=== PATIENT | female | born 1950 | race Caucasian/White ===

== ENCOUNTER → 2018-04-18 14:24 | Outpatient (CLI) | payer MEDICARE, SELFPAY ==
[2018-04-18 16:36] LABS: Absolute Lymphocyte Count 1.71 X10^3/ul (0.83-4.51); Absolute Neutrophil Count 2.8 X10^3/uL (2.0-7.7); Basophil# 0.05 X10^3/uL; Eosinophil# 0.17 X10^3/uL; Eosinophils% 3.3 % (0-5); Hematocrit 38.5 % (37-47); Hemoglobin 12.8 g/dl (12.0-15.0); Lymphocyte # 1.71 X10^3/ul (4.0); Lymphocyte % 32.9 % (19-41); Mean Corp Hgb Conc 33.2 g/gl (32-36); Mean Corpuscular Hgb 30.6 pg (27.0-32.0); Mean Corpuscular Volume 92.1 fL (81-99); Mean Platelet Vol. 11.6 fl (6.2-12.0); Monocyte# 0.43 X10^3/uL; Monocyte% 8.3 % (0-10); Neutrophil # 2.82 X10^3/uL (2.7-7.7); Neutrophil % 54.3 % (47-70); Platelet Count 229 K/mm3 (150-450); RBC Distribution Width CV 13.6 % (11.6-14.6); Red Blood Count 4.18 M/mm3 (4.2-5.4); White Blood Count 5.2 K/mm3 (4.4-11.0)
[2018-04-18 16:54] LABS: POSITIVE COUNT NO; POSITIVE DIFFERENTIAL NO; POSITIVE MORPHOLOGY NO
[2018-04-18 17:06] LABS: AST(SGOT) 17 U/L (15-37); Alanine Aminotransfer ALT/SGPT 28 U/L (13-56); Albumin, Serum 3.5 g/dL (3.2-5.0); Alkaline Phosphatase 50 U/L (45-117); Anion Gap 5 (5-15); BUN 24 mg/dL (7-18); Calcium,Total 8.4 mg/dL (8.5-10.1); Chloride 109 mmol/L (98-107); Creatinine, Serum 0.83 mg/dL (0.55-1.02); EST Glomerular Filtration Rate 73 mL/min (>60); Est Glom Filt Rate - Afr Amer 88 mL/min (>60); Globulin 3.4 g/dL (2.2-4.2); Glucose 88 mg/dL (74-106); Potassium 4.1 mmol/L (3.5-5.1); Protein, Total 6.9 g/dL (6.4-8.2); Sodium Level 143 mmol/L (136-145)
== END ==
PROVIDERS: Family Provider Family Medicine; PCP Family Medicine; Visit Provider Internal Medicine Medical Oncology
DX: C50.911 Malignant neoplasm of unspecified site of right female breast (principal)
CPT/HCPCS: 36415; 80053; 85025

== ENCOUNTER → 2018-06-16 14:04 | Outpatient (CLI) | payer MEDICARE, SELFPAY ==
[2018-06-16 15:58] LABS: Thyroid Stim Hormone (TSH) 0.61 uIU/mL (0.358-3.74)
== END ==
PROVIDERS: Family Provider Family Medicine; PCP Family Medicine; Visit Provider Nurse Practitioner Family
DX: R53.83 Other fatigue (principal)
CPT/HCPCS: 36415; 84443

== ENCOUNTER → 2018-07-14 07:01 | Outpatient (CLI) | payer MEDICARE, OTHER, SELFPAY ==
[2018-07-14 08:42] LABS: AST(SGOT) 18 U/L (15-37); Alanine Aminotransfer ALT/SGPT 23 U/L (13-56); Albumin, Serum 3.6 g/dL (3.2-5.0); Alkaline Phosphatase 58 U/L (45-117); Bilirubin, Direct 0.13 mg/dL (0.00-0.30); Cholesterol 235 mg/dL (200); Globulin 3.7 g/dL (2.2-4.2); High Density Lipoprotein 81 mg/dL; Protein, Total 7.3 g/dL (6.4-8.2); Triglycerides 47 mg/dL; Very Low Density Lipoprotein 9 mg/dL (5-40)
--- NOTE | 2018-07-14 12:52 | CDU_ITS ---
Reason For Study: TIA Rt. Velocities/BP Lt. Velocities/BP Prox CCA 67.4/11.7 cm/sec. Prox CCA 52.6/18.5 cm/sec. Mid CCA 56.2/13.8 cm/sec. Mid CCA 53.8/13 cm/sec. Dist CCA 47.1/12.6 cm/sec. Dist CCA 49.1/11 cm/sec. Prox ICA 38.6/8.81 cm/sec. Prox ICA 57.8/20.4 cm/sec. Mid ICA 53/20 cm/sec. Mid ICA 101/34.1 cm/sec. Dist ICA 57/18.5 cm/sec. Dist ICA 79/22.9 cm/sec. Rt. ICA/CCA = 1.01. Lt. ICA/CCA = 1.92. Prox ECA 58.9/7.07 cm/sec. Prox ECA 49.1/9.04 cm/sec. Rt. Vert. 39.3/11.4 cm/sec. Lt. Vert. 29.2/9.47 cm/sec. Right Extracranial There is no significant atherosclerotic plaque noted in the right common carotid artery. There is no significant atherosclerotic plaque noted in the right internal carotid artery. There is no significant atherosclerotic plaque noted in the right external carotid artery. Antegrade flow is noted in the right vertebral artery. Left Extracranial There is no significant atherosclerotic plaque noted in the left common carotid artery. There is no significant atherosclerotic plaque noted in the left internal carotid artery. The left internal carotid artery is very tortuous. There is no significant atherosclerotic plaque noted in the left external carotid artery. Antegrade flow is noted in the left vertebral artery. Procedure Carotid Duplex 36595. Exam performed in department. Interpretation Summary No hemodynamically significant plague bilateral extracranial internal carotid arteries with <50% stenosis bilaterally. Tortuous left internal carotid Normal flow bilateral external carotids Patent and antegrade vertebrals bilaterally Ordering Physician: Mitch Diallo Referring Physician: Jakub Dial MD Performed By: Kari Casiano RVT and Student
== END ==
PROVIDERS: Family Provider Family Medicine; PCP Family Medicine; Referring Provider Internal Medicine Cardiovascular Disease; Visit Provider Internal Medicine Cardiovascular Disease
DX: G45.3 Amaurosis fugax (principal); R09.89 Other specified symptoms and signs involving the circulatory and respiratory systems; I49.9 Cardiac arrhythmia, unspecified; Z86.73 Personal history of transient ischemic attack (TIA), and cerebral infarction without residual deficits
CPT/HCPCS: 36415; 80061; 80076; 93225; 93226; 93880

== ENCOUNTER → 2018-07-15 14:52 | Outpatient (CLI) | payer MEDICARE, OTHER, SELFPAY ==
--- NOTE | 2018-07-15 14:54 | ECHOD_ITS ---
Reason For Study: Bicuspid AoV Procedure This was a 2D Doppler, Color Flow transthoracic echocardiogram. Exam performed in department. Left Ventricle Normal LV size. Left ventricular systolic function is normal. The estimated ejection fraction is 60 %. Stage 1 diastolic dysfunction. No regional wall motion abnormalities noted. Right Ventricle Normal RV size. Normal systolic function. Atria Normal left atrium. Normal right atrium. Bubble contrast study negative for right to left interatrial shunt. Mitral Valve Normal mitral valve. Mild (1+) eccentric mitral valve insufficiency. Tricuspid Valve Normal tricuspid valve. Mild (1+) tricuspid valve insufficiency. Pulmonary artery systolic pressure is 30 mmHg. Aortic Valve Trisinus/trileaflet aortic valve. Mild focal aortic valve calcification. Peak aortic valve gradient 54 mmHg. Mean aortic valve gradient 33 mmHg. Calculated aortic valve area (continuity equation) is 1.0 cm2. Moderate aortic stenosis. Mild (1+) eccentric aortic valve insufficiency. Pulmonic Valve Normal pulmonic valve. Great Vessels Normal aortic root. The pulmonary artery is normal size. Normal inferior vena cava. Inferior vena cava collapse with sniff. Pericardium/Pleural No pericardial effusion. Medication Performed a rapid injection of agitated mix of 9 cc saline and 1cc air to assess for atrial septal defect. MMode/2D Measurements & Calculations LVIDd: 4.6 cm IVSd: 1.2 cm LVOT diam: 2.2 cm LVIDs: 2.7 cm LVPWd: 1.0 cm LVOT area: 3.8 cm2 RVDd: 3.0 cm FS: 42.5 % Ao root diam: 3.9 cm LAV(MOD-bp): 46.7 ml LVAd ap4: 26.5 cm2 LAV(MOD-bp) Indexed: 26.2 ml/m2 EDV(MOD-sp4): 75.2 ml LAV(MOD-sp2): 40.9 ml EDV(sp4-el): 78.0 ml LAV(MOD-sp4): 43.9 ml LVAs ap4: 12.6 cm2 ESV(MOD-sp4): 21.4 ml ESV(sp4-el): 21.7 ml EF(MOD-sp4): 71.5 % EF(sp4-el): 72.2 % SV(MOD-sp4): 53.8 ml SV(sp4-el): 56.3 ml LA A4 area: 17.3 cm2 RA A4 area: 16.0 cm2 Doppler Measurements & Calculations MV E max juan ramon: 87.9 cm/sec Lat Peak E' Juan Ramon: 8.3 cm/sec Med Peak E' Juan Ramon: 7.6 cm/sec MV A max juan ramon: 97.1 cm/sec E/E' lat: 10.6 E/E' med: 11.5 MV E/A: 0.91 Ao V2 max: 368.9 cm/sec AI max juan ramon: 426.5 cm/sec LV V1 max: 96.0 cm/sec Ao max P.4 mmHg AI max P.8 mmHg LV V1 max P.7 mmHg Ao V2 mean: 277.7 cm/sec AI dec slope: 260.9 cm/sec2 LV V1 mean P.0 mmHg Ao mean P.2 mmHg AI P1/2t: 478.8 msec LV V1 mean: 66.8 cm/sec Ao V2 VTI: 91.6 cm LV V1 VTI: 22.7 cm SEGUNDO(I,D): 0.94 cm2 SEGUNDO(V,D): 0.98 cm2 SV(LVOT): 86.0 ml PA V2 max: 83.8 cm/sec TR max juan ramon: 262.8 cm/sec TR max P.7 mmHg Interpretation Summary Normal LV size. Left ventricular systolic function is normal. The estimated ejection fraction is 60 %. Stage 1 diastolic dysfunction. Bubble contrast study negative for right to left interatrial shunt. Mean aortic valve gradient 33 mmHg. Calculated aortic valve area (continuity equation) is 1.0 cm2. Moderate aortic stenosis. Compared to the previous the SEGUNDO is mildy worse Ordering Physician: Mitch Diallo Referring Physician: Jakub Dial Performed By: Desiree Gastelum, RDCS, RVT
== END ==
PROVIDERS: Family Provider Family Medicine; PCP Family Medicine; Referring Provider Internal Medicine Cardiovascular Disease; Visit Provider Internal Medicine Cardiovascular Disease
DX: G45.3 Amaurosis fugax (principal)
CPT/HCPCS: 93306; A4216

== ENCOUNTER → 2019-01-03 07:19 | Outpatient (CLI) | payer MEDICARE, SELFPAY ==
[2018-07-13 12:41] VITALS: BMI 25.7
[2019-01-03 08:14] LABS: AST(SGOT) 18 U/L (15-37); Alanine Aminotransfer ALT/SGPT 30 U/L (13-56); Albumin, Serum 3.7 g/dL (3.2-5.0); Alkaline Phosphatase 65 U/L (45-117); Bilirubin, Direct 0.17 mg/dL (0.00-0.30); Cholesterol 203 mg/dL (200); Globulin 3.4 g/dL (2.2-4.2); High Density Lipoprotein 85 mg/dL; Protein, Total 7.1 g/dL (6.4-8.2); Triglycerides 60 mg/dL; Very Low Density Lipoprotein 12 mg/dL (5-40)
[2019-01-03 08:20] LABS: Vitamin D,25 Hydroxy 58.4 ng/mL (29.95-100.01)
== END ==
PROVIDERS: Family Provider Family Medicine; PCP Family Medicine; Referring Provider Internal Medicine Cardiovascular Disease; Visit Provider Internal Medicine Cardiovascular Disease
DX: I35.0 Nonrheumatic aortic (valve) stenosis (principal); E78.5 Hyperlipidemia, unspecified
CPT/HCPCS: 36415; 80061; 80076; 82306

== ENCOUNTER → 2019-08-01 12:41 | Outpatient (CLI) | payer MEDICARE, SELFPAY ==
[2019-07-13 08:04] VITALS: BMI 24.6
--- NOTE | 2019-08-01 12:42 | ECHOD_ITS ---
Reason For Study: MURMUR Procedure This was a 2D Doppler, Color Flow transthoracic echocardiogram. Exam performed in department. Left Ventricle Normal LV size. Left ventricular systolic function is normal. The estimated ejection fraction is 60 %. Stage 1 diastolic dysfunction. No regional wall motion abnormalities noted. Right Ventricle Normal RV size. Normal systolic function. Atria Normal left atrium. 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 Acoustic shadowing noted in LA septal wall. Normal right atrium. Mitral Valve Normal mitral valve. Tricuspid Valve Normal tricuspid valve. Mild (1+) tricuspid valve insufficiency. Pulmonary artery systolic pressure is 34 mmHg. Aortic Valve Bicuspid aortic valve. Mild focal aortic valve calcification. Severe aortic stenosis. Peak aortic valve gradient 76 mmHg. Mean aortic valve gradient 48 mmHg. Calculated aortic valve area (continuity equation) is 0.84 cm2. Pulmonic Valve Normal pulmonic valve. Great Vessels Normal aortic root. The pulmonary artery is normal size. Normal inferior vena cava. Pericardium/Pleural No pericardial effusion. MMode/2D Measurements & Calculations LVIDd: 4.4 cm IVSd: 1.1 cm LVOT diam: 2.2 cm LVIDs: 2.4 cm LVPWd: 1.0 cm LVOT area: 3.8 cm2 RVDd: 3.0 cm FS: 44.9 % Ao root diam: 3.6 cm LAV(MOD-bp): 56.1 ml LA A4 area: 19.7 cm2 LAV(MOD-bp) Indexed: 32.1 ml/m2 LAV(MOD-sp2): 52.3 ml LAV(MOD-sp4): 56.1 ml LA dimension(2D): 4.1 cm RA A4 area: 15.7 cm2 Time Measurements MV dec time: 0.27 sec Doppler Measurements & Calculations MV E max juan ramon: 93.7 cm/sec Lat Peak E' Juan Ramon: 7.9 cm/sec Med Peak E' Juan Ramon: 6.4 cm/sec MV A max juan ramon: 109.2 cm/sec E/E' lat: 11.9 E/E' med: 14.7 MV E/A: 0.86 Ao V2 max: 436.1 cm/sec LV V1 max: 94.8 cm/sec SV(LVOT): 92.0 ml Ao max P.2 mmHg LV V1 max P.6 mmHg Ao V2 mean: 336.0 cm/sec LV V1 mean P.2 mmHg Ao mean P.5 mmHg LV V1 mean: 70.7 cm/sec Ao V2 VTI: 106.0 cm LV V1 VTI: 23.9 cm SEGUNDO(I,D): 0.87 cm2 SEGUNDO(V,D): 0.84 cm2 TR max juan ramon: 269.6 cm/sec TR max P.1 mmHg Interpretation Summary Normal LV size. Left ventricular systolic function is normal. The estimated ejection fraction is 60 %. Stage 1 diastolic dysfunction. Acoustic shadowing noted in LA septal wall. 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 Mean aortic valve gradient 48 mmHg. Bicuspid aortic valve. Calculated aortic valve area (continuity equation) is 0.84 cm2. Compared to the previous the is worse. Will recommend ANGY for further clarification of IA tea. Ordering Physician: Mitch Diallo Referring Physician: JIAN TAVARES Performed By: Alize Wu, ELISSA, RVT
== END ==
PROVIDERS: Family Provider Family Medicine; PCP Family Medicine; Referring Provider Internal Medicine Cardiovascular Disease; Visit Provider Internal Medicine Cardiovascular Disease
DX: I35.0 Nonrheumatic aortic (valve) stenosis (principal)
CPT/HCPCS: 93306

== ENCOUNTER → 2019-08-28 10:35 | Outpatient (CLI) | payer MEDICARE, SELFPAY ==
[2019-07-13 08:04] VITALS: BMI 24.6
[2019-08-25 08:10] LABS: AST(SGOT) 15 U/L (15-37); Alanine Aminotransfer ALT/SGPT 23 U/L (13-56); Albumin, Serum 3.4 g/dL (3.2-5.0); Alkaline Phosphatase 66 U/L (45-117); Anion Gap 6 (5-15); BUN 15 mg/dL (7-18); BUN/Creat Ratio 19.9 RATIO (10-20); Bilirubin, Direct 0.12 mg/dL (0.00-0.30); Chloride 105 mmol/L (98-107); Cholesterol 212 mg/dL (200); Creatinine, Serum 0.75 mg/dL (0.55-1.02); EST Glomerular Filtration Rate 81 mL/min (>60); Est Glom Filt Rate - Afr Amer 98 mL/min (>60); Globulin 3.7 g/dL (2.2-4.2); Glucose 89 mg/dL (74-106); High Density Lipoprotein 78 mg/dL; Potassium 4.2 mmol/L (3.5-5.1); Protein, Total 7.1 g/dL (6.4-8.2); Sodium Level 142 mmol/L (136-145); Triglycerides 86 mg/dL; Very Low Density Lipoprotein 17 mg/dL (5-40)
--- NOTE | 2019-08-28 10:36 | ECHOTEE_ITS ---
Reason For Study: R/O Left atrial mass Medication ANGY probe 6VT-D (SN [id number]) passed with minimal difficulty. No complications were noted. Cetacaine Topical [place] given X4 orally. Versed 2 mg given slow IVP. Performed a rapid injection of agitated mix of 9 cc saline and 1cc air to assess for atrial septal defect. Left Ventricle Normal LV size. Left ventricular systolic function is normal. The estimated ejection fraction is 65 %. No regional wall motion abnormalities noted. Right Ventricle Normal RV size. Normal systolic function. Atria Bubble contrast study negative for right to left interatrial shunt. Normal left atrium. No thrombus is detected in the left atrial appendage. Normal right atrium. Mitral Valve Normal mitral valve. Tricuspid Valve Normal tricuspid valve. Aortic Valve Normal aortic valve. Trisinus/trileaflet aortic valve. Pulmonic Valve Normal pulmonic valve. Vessels Normal aortic root. Normal arch. The pulmonary artery is normal size. Pericardium No pericardial effusion. Interpretation Summary Normal LV size. Left ventricular systolic function is normal. The estimated ejection fraction is 65 %. Normal left atrium. No thrombus is detected in the left atrial appendage. Bubble contrast study negative for right to left interatrial shunt. Ordering Physician: Mitch Diallo Referring Physician: Jakub Dial MD Performed By: Dottie Hull, ELISSA
== END ==
PROVIDERS: Family Provider Family Medicine; PCP Family Medicine; Referring Provider Internal Medicine Cardiovascular Disease; Visit Provider Internal Medicine Cardiovascular Disease
DX: I35.0 Nonrheumatic aortic (valve) stenosis (principal); G45.3 Amaurosis fugax; E78.5 Hyperlipidemia, unspecified; R53.83 Other fatigue; Z85.3 Personal history of malignant neoplasm of breast
CPT/HCPCS: 36415; 80048; 80061; 80076; 93312; 93320; 93325

== ENCOUNTER 2020-03-22 07:58 | Emergency (ER) | payer MEDICARE, SELFPAY ==
[2019-07-13 08:04] VITALS: BMI 24.6
[2020-03-22 07:59] VITALS: BP 150/71; PULSE 73; RESP 17; TEMP 36.2; O2SAT 95; BMI 26.1
--- NOTE | 2020-03-22 08:08 | ED.VIS.INJ ---
History of Present Illness Chief Complaint: Laceration Informant: Patient Onset: Today Mechanism/Context: Incised Quality of Pain: Aching Narrative: Patient is a 70-year-old female presenting from home after sustaining a laceration to her left leg. Patient was carrying a trash bag that had a broken hummingbird feeder and twigs in it. She cut her right leg and noticed because she had blood running down her leg. She did have a hard time getting the bleeding to stop so she came to the emergency room. She is not on any anticoagulation. She states her last tetanus was 40+ years ago but is refusing one now. She denies any other injuries. She states there is aching in her leg but denies any other pain. Patient closed the wound off at home prior to arrival. No other complaints at this time. Tetanus Immunization: >10 years Past Medical History - Allergies and Home Meds Allergies/Adverse Reactions: Allergies Penicillins Allergy (Unknown, Verified 03/22/20 07:58) Unknown adhesive tape Allergy (Verified 03/22/20 07:58) Unknown zinc Allergy (Verified 03/22/20 07:58) Vomiting Primary Care Physician: Jakub Dial MD [Primary Care Provider] - Past Medical History: - - breast cancer Surgical History: noncontributory Lives: Alone Smoking Status: Never smoker Review of Systems General: Denies: Chills, Fever, Sweats Cardiovascular: Denies: Chest pain, Palpitations Respiratory: Denies: Dyspnea, Cough Gastrointestinal: Denies: Nausea, Vomiting Musculoskeletal: Reports: Extremity Pain - left lower leg . Denies: Myalgias, Arthralgias Skin: Reports: Wounds - left lower leg Neurological: Denies: Weakness, Parasthesia, Numbness Physical Exam Vital Signs/Narrative: Vital Signs Temp Pulse Resp BP Pulse Ox 03/22/20 07:59 97.2 F L 73 17 150/71 H 95 Inital Vital Signs reviewed: Yes General: Well nourished, Well developed Head: Normocephalic, Atraumatic Eyes: Perrl, EOMI ENT: No trauma Neck: Nontender, Full ROM Cardiovascular: Regular rate, Regular rhythm, - - 2+ bilateral DP pulses, good cap refill Respiratory: No distress, CTA bilaterally, Chest nontender Skin: Normal color, No rash, Trauma - 4 centimeter full-thickness linear, tonsil laceration on left mid lateral calf, no active bleeding. Exposure of adipose tissue but no exposure of muscle or fascia. Neurological: Alert, Oriented x3, Cranial nerves II-XII grossly intact, Normal Strength, Normal Sensation Psychological: Normal affect Diagnostic/Tx/Re-eval - Medical Decision Making She is evaluated for laceration to her left lower leg. Laceration repair performed. See procedure note. Patient adamantly declines tetanus shot. She is encouraged that should she change her mind on tetanus she can follow-up with her primary care doctor or return to the emergency room. She is counseled localized wound care. Patient is counseled on signs symptoms require return to the emergency room. She verbalizes agreement understand this plan. She is discharged home in stable and improved condition. Laceration No standard instances Length: 1.57 in Depth: Sub Q Shape: Linear Prep: Sterile Conditions, Chlorhexadine Laceration Repair: Lidocaine with epi Irrigated (ml): 250 Stitch Description: Ethilon, 4-0 Comment: A horizontal mattress and 1 simple interrupted suture placed with very good wound edge approximation. ED Disposition - Plan for ED Patient: Disposition: Home or Assisted Living Diagnosis: Laceration of left lower leg Instructions: ED Laceration Scalp Sutures or Eduardo Referrals: Jakub Dial MD [Primary Care Provider] - Additional Instructions: Please follow-up with your primary care doctor or return the emergency room and 10 to 14 days for suture removal. If you change your mind and would like a tetanus shot please return to the ER or discuss this with your primary care doctor. Return with any signs of infection.
== END 2020-03-22 08:36 | disposition home or self-care (01) ==
LOC: ED 08:16
PROVIDERS: Emergency Provider Emergency Medicine; PCP Family Medicine
DX: S81.812A Laceration without foreign body, left lower leg, initial encounter (principal); W45.8XXA Other foreign body or object entering through skin, initial encounter; W22.8XXA Striking against or struck by other objects, initial encounter; Y93.E9 Activity, other interior property and clothing maintenance; Y92.9 Unspecified place or not applicable; Y99.9 Unspecified external cause status; Z88.0 Allergy status to penicillin; Z85.3 Personal history of malignant neoplasm of breast
CPT/HCPCS: 12002; 99284

== ENCOUNTER → 2020-09-10 07:13 | Outpatient (CLI) | payer MEDICARE, SELFPAY ==
[2020-08-27 07:33] VITALS: BMI 25.7
--- NOTE | 2020-09-10 08:39 | ECHOD_ITS ---
Reason For Study: MURMUR Procedure This was a 2D Doppler, Color Flow transthoracic echocardiogram. Exam performed in department. Left Ventricle Normal LV size. Left ventricular systolic function is normal. The estimated ejection fraction is 60 %. Stage 1 diastolic dysfunction. No regional wall motion abnormalities noted. Right Ventricle Normal RV size. Normal systolic function. Atria Normal left atrium. Normal right atrium. Mitral Valve Normal mitral valve. Mild (1+) eccentric mitral valve insufficiency. Tricuspid Valve Normal tricuspid valve. Mild (1+) tricuspid valve insufficiency. Pulmonary artery systolic pressure is 38 mmHg. Aortic Valve Trisinus/trileaflet aortic valve. Moderate focal aortic valve calcification. Peak aortic valve gradient 98 mmHg. Mean aortic valve gradient 61 mmHg. Severe aortic stenosis. Calculated aortic valve area (continuity equation) is 0.7 cm2. Pulmonic Valve Normal pulmonic valve. Great Vessels Normal aortic root. The pulmonary artery is normal size. Normal inferior vena cava. Pericardium/Pleural No pericardial effusion. MMode/2D Measurements & Calculations LVIDd: 4.3 cm IVSd: 1.1 cm LVOT diam: 2.0 cm LVIDs: 2.2 cm LVPWd: 1.1 cm LVOT area: 3.3 cm2 RVDd: 3.0 cm FS: 49.0 % Ao root diam: 3.7 cm LAV(MOD-bp): 53.9 ml LA A4 area: 18.1 cm2 LAV(MOD-bp) Indexed: 30.2 ml/m2 LAV(MOD-sp2): 54.4 ml LAV(MOD-sp4): 49.0 ml LA dimension(2D): 3.8 cm RA A4 area: 14.4 cm2 Time Measurements MV dec time: 0.31 sec Doppler Measurements & Calculations MV E max juan ramon: 91.8 cm/sec Lat Peak E' Juan Ramon: 6.8 cm/sec Med Peak E' Juan Ramon: 5.1 cm/sec MV A max juan ramon: 119.3 cm/sec E/E' lat: 13.5 E/E' med: 18.0 MV E/A: 0.77 Ao V2 max: 495.1 cm/sec LV V1 max: 105.7 cm/sec SV(LVOT): 89.1 ml Ao max P.1 mmHg LV V1 max P.5 mmHg Ao V2 mean: 372.6 cm/sec LV V1 mean P.8 mmHg Ao mean P.6 mmHg LV V1 mean: 81.2 cm/sec Ao V2 VTI: 124.6 cm LV V1 VTI: 27.1 cm SEGUNDO(I,D): 0.72 cm2 SEGUNDO(V,D): 0.70 cm2 PA V2 max: 103.4 cm/sec PI end-d juan ramon: 114.4 cm/sec TR max juan ramon: 291.3 cm/sec TR max P.1 mmHg Interpretation Summary Normal LV size. Left ventricular systolic function is normal. The estimated ejection fraction is 60 %. Mild (1+) eccentric mitral valve insufficiency. Stage 1 diastolic dysfunction. Severe aortic stenosis. Calculated aortic valve area (continuity equation) is 0.7 cm2. Compared to the previous the aortic valve is worse. Ordering Physician: Mitch Diallo Referring Physician: JIAN TAVARES Performed By: Alize Wu, ELISSA, RVT
[2020-09-10 09:34] LABS: AST(SGOT) 17 U/L (15-37); Alanine Aminotransfer ALT/SGPT 28 U/L (13-56); Albumin, Serum 3.8 g/dL (3.2-5.0); Alkaline Phosphatase 63 U/L (45-117); Bilirubin, Direct 0.15 mg/dL (0.00-0.30); Cholesterol 252 mg/dL (200); Globulin 3.6 g/dL (2.2-4.2); High Density Lipoprotein 100 mg/dL; Protein, Total 7.4 g/dL (6.4-8.2); Triglycerides 64 mg/dL; Very Low Density Lipoprotein 13 mg/dL (5-40)
== END ==
PROVIDERS: PCP Family Medicine; Referring Provider Internal Medicine Cardiovascular Disease; Visit Provider Internal Medicine Cardiovascular Disease
DX: I35.0 Nonrheumatic aortic (valve) stenosis (principal); G45.3 Amaurosis fugax
CPT/HCPCS: 36415; 80061; 80076; 93306

== ENCOUNTER → 2020-09-11 12:41 | Outpatient (CLI) | payer MEDICARE, SELFPAY ==
[2020-08-27 07:33] VITALS: BMI 25.7
--- NOTE | 2020-09-11 13:15 | RAD_ITS ---
STUDY: X-RAY CHEST REASON FOR EXAM: Female, 70 years old. PRE-OP FOR HEART CATH ON September. NONRHEUMATIC AORTIC VALVE STENOSIS. HX RIGHT SIDED MASTECTOMY 13 YEARS AGO. TECHNIQUE: PA and lateral views of the chest. COMPARISON: None. FINDINGS: The lungs are hyperinflated. There are a few right basilar streaky opacities. Normal size heart. Normal mediastinum and david. Normal visualized pulmonary arteries. Normal visualized aortic arch and descending thoracic aorta. There are diffuse degenerative changes of the visualized thoracic spine. There are surgical clips projecting over the right axilla. Normal visualized ribs, clavicles, and shoulders. There is no demonstrated abnormality of the visualized soft tissue structures of the upper abdomen. RAD/Chest PA and Lateral IMPRESSION: Hyperinflated lungs. Minimal right basilar atelectasis and/or scarring. Electronically Signed: Whit Hood MD at 22:40 EST Tel , Service support ,
[2020-09-11 13:35] LABS: Hematocrit 40.9 % (37-47); Hemoglobin 13.3 g/dL (12.0-15.0); Mean Corp Hgb Conc 32.5 g/dL (32-36); Mean Corpuscular Hgb 30.3 pg (27.0-32.0); Mean Corpuscular Volume 93.2 fL (81-99); Mean Platelet Vol. 11.6 fl (6.2-12.0); Platelet Count 221 K/mm3 (150-450); RBC Distribution Width SD 44.2 fl (35.1-43.9); Red Blood Count 4.39 M/mm3 (4.2-5.4); White Blood Count 5.3 K/mm3 (4.4-11.0)
[2020-09-11 13:45] LABS: International Normalized Ratio 0.9; Partial Thromboplast Time 24.5 Seconds (24.1-36.2); Prothrombin Time (Protime)PT. 11.6 SECONDS (11.7-14.9)
[2020-09-11 13:52] LABS: Anion Gap 3 (5-15); BUN 18 mg/dL (7-18); BUN/Creat Ratio 21.5 RATIO (10-20); Calcium,Total 9.1 mg/dL (8.5-10.1); Chloride 107 mmol/L (98-107); Creatinine, Serum 0.84 mg/dL (0.55-1.02); EST Glomerular Filtration Rate 71 mL/min (>60); Est Glom Filt Rate - Afr Amer 86 mL/min (>60); Glucose 113 mg/dL (74-106); Sodium Level 140 mmol/L (136-145)
== END ==
PROVIDERS: PCP Family Medicine; Referring Provider Internal Medicine Cardiovascular Disease; Visit Provider Internal Medicine Cardiovascular Disease
DX: Z01.818 Encounter for other preprocedural examination (principal); I35.0 Nonrheumatic aortic (valve) stenosis; Z51.81 Encounter for therapeutic drug level monitoring; Z79.02 Long term (current) use of antithrombotics/antiplatelets
CPT/HCPCS: 36415; 71046; 80048; 85027; 85610; 85730

== ENCOUNTER 2020-09-23 07:12 | Day surgery (SDC) | payer MEDICARE, SELFPAY ==
[2020-08-27 07:33] VITALS: BMI 25.7
[2020-09-20 08:54] VITALS: BMI 25.7
--- NOTE | 2020-09-23 07:04 | HP_ITS ---
[facility] History of Present Illness Details: YEN CHEEK, is a 70 F who presents to the office today for a follow-up visit. She is a lady with a history of a aortic valve disease last evaluated in 2018 demonstrated an ejection fraction of 65%. She does not have any dizziness or diaphoresis no near syncope or syncope. She has been compliant with her follow-up. She is on no medications. She denies any chest pain or shortness breath or paroxysmal nocturnal dyspnea pedal edema no neck arm or jaw discomfort to suggest angina. Her physical exam demonstrates clear lung kidd regular rate and rhythm bilateral carotid bruits, is soft 3/6 systolic ejection sound noted left sternal border. No pedal edema is noted and her blood pressure is noted to be normal. Intake Vital Signs 08/27/20 Height 5 ft 5 in 08/27/20 Weight: 155 lb 08/27/20 BMI 25.7 08/27/20 BP 129/76 H 08/27/20 Respiration 16 08/27/20 Pulse 60 08/27/20 Pulse Oximetry (%) 96 Intake Visit Reasons: 1 Y FU Allergies Penicillins Allergy (Unknown, Verified 08/27/20 07:33) Unknown adhesive tape Allergy (Verified 08/27/20 07:33) Unknown zinc Allergy (Verified 08/27/20 07:33) Vomiting Medications ascorbate calcium (vitamin C) 500 mg tablet 500 mg PO DAILY 08/27/20 [History Confirmed 08/27/20] cholecalciferol (vitamin D3) 25 mcg (1,000 unit) capsule 25 mcg PO DAILY 08/27/20 [History Confirmed 08/27/20] omega-3 fatty acids 1,000 mg capsule 1,000 mg PO DAILY 08/27/20 [History Confirmed 08/27/20] turmeric 400 mg capsule mg PO 08/27/20 [History Confirmed 08/27/20] Ejection fraction %: 60 to 64 [facility] Medical History Non-rheumatic aortic stenosis (Chronic) Amaurosis fugax (Resolved) History of right breast cancer (Chronic) Arthritis (Chronic) Central sleep apnea (Chronic) Left carotid bruit (Chronic) Macular degeneration (Chronic) Obstructive sleep apnea (Chronic) Hyperlipidemia (Resolved) Lymphedema of right arm (Resolved) Bicuspid aortic valve (Ruled-out) Surgical History H/O cataract extraction (Resolved) History of cataract surgery (Resolved) History of corneal transplant (Resolved) History of mastectomy (Resolved) History of nasal septoplasty (Resolved) Family History Mother Heart disease Social History (Updated 08/27/20 @ 10:[address] Mitch Diallo MD) Smoking Status: Never smoker ROS Const Const: Negative for fatigue, weakness, headache(s), frequent falls, difficulty sleeping or excessive sweating Eyes Eyes: Negative for loss of peripheral vision, transient loss of vision, blurry vision, double vision or tunnel vision ENT ENT: Negative for headache(s), dizziness, Nosebleed/epistaxis or balance problems Cardio Chest Pain: No Palpitations: No Edema: None Muscle aches with walking: None Resp Respiratory: Negative for SOB with activity, SOB at rest, SOB orthopnea\SOB lying down, Cough or paroxysmal nocturnal dyspnea GI GI: Negative nausea, vomiting, heartburn or black,tarry stools : Negative for hematuria Musc Musc: Negative for muscle aches/ myalgia, muscle weakness, joint pain or balance problems Skin Skin: Negative non-healing lesions, rash or unusual bruising Neuro Neuro: Negative for dizziness, lightheadedness, near syncope, syncope, orthostatic symptoms, frequent falls, headache(s), weakness, blurry vision, double vision or lack of coordination [place] Hematologic/Lymphatic: Positive for easy bleeding; negative for easy bruising Endo Endo: Negative for fatigue, excessive sweating or increased thirst/drinking Psych Psych: Negative for anxiety or depression Allergy Allergy/Immunology: Negative for hives, Negative for rash Cardiology Exam Const Appearance: cooperative, healthy appearing, no acute distress, well developed and well groomed Nutritional Appearance: average body habitus and well nourished Orientation: alert, awake and oriented x3 Head Head: normal to inspection, normocephalic and atraumatic Ears: hearing grossly normal bilaterally and external ears normal Nose: external nose normal, nares normal, nasal mucous membranes and turbinates normal, septum normal, no nasal discharge Face and Sinus: face symmetric Mouth: oral mucosae normal, tongue normal, oropharynx normal and moist mucous membranes Teeth and gingiva: dentition normal Throat: posterior oropharynx normal, tonsils normal and uvula midline Eyes General: appearance normal, both eyes and all related structures Eyelids: eyelids normal Conjunctivae: conjunctivae normal Pupils: PERRL, normal by confrontation and accommodation normal EOM: EOM intact bilaterally Neck Neck: normal visual inspection, trachea midline and no JVD JVD: +5 Carotids: normal carotid upstroke and bounding pulses Chest Chest inspection: normal inspection of the chest, symmetric chest movement and normal respiratory effort Auscultation: Bilateral: Clear to Auscultation Cardio Palpation: normal PMI Rate: regular rate Rhythm: regular rhythm Heart sounds: S1 normal, S2 normal and normal, physiologic split S2; negative rub, gallop or murmur Murmur: Grade 3/6, loud, harsh and early systolic GI GI: normal to inspection, soft, no hepatosplenomegaly and bowel sounds present Neuro General: alert, awake, oriented x3, gait normal, moves all extremities and no focal sensory deficit Skin Skin: no rashes or lesions noted Extremities Pulses: Normal: Right Femoral Pulse, Left Femoral Pulse, Right Dorsalis Pedis Pulse, Left Dorsalis Pedis Pulse, Right Posterior Tibial Pulse, Left Posterior Tibial Pulse, Right Radial Pulse, Left Radial Pulse Lower Extremity Edema: None: Bilateral Musculoskel Musculoskeletal: No joint tenderness Psych Psychological: normal affect Assessment & Plan Problems 1. Non-rheumatic aortic stenosis I35.0 Plan She does have evidence of nonrheumatic aortic stenosis. Her echo from last year demonstrated a peak mean gradient of 76 mmHg and 48 mmHg respectively. I would like us to repeat the above and depending on the findings further recommendations will be made. I have however primed her that we should consider possible aortic valve intervention. Thank you for allowing me to participate in the care of your patient. Please don't hesitate to call if any issues arise. Orders Orders: Echo Complete Today I35.0 Plan Detail Follow Up 6 Months (overhead foreman) Coding Level of Care Code Off vis,est,level 3 Diagnoses Non-rheumatic aortic stenosis I35.0 Coding Level of Care Code Off vis,est,level 3 Diagnoses Non-rheumatic aortic stenosis I35.0 Supplemental Info Supplemental Information Labs LDL Cholesterol 117 mg/dL (0-130) 08/28/19 HDL Cholesterol 78 mg/dL (40-) 08/28/19 Triglycerides 86 mg/dL (-199) 08/28/19 VLDL Cholesterol 17 mg/dL (5-40) 08/28/19 Diagnostics Echocardiogram 08/01/19 Transesophageal Echocardiogram 08/28/19
--- NOTE | 2020-09-23 09:26 | CL.D_ITS ---
Patient Name: YEN CHEEK Study Date: 09/23/2020 Performing: Mitch Diallo MD Ht: 64.96 inches 165 cm : 1950 Wt: 154.32 lbs 70 kg Age: 70 Gender: female BSA: 1.77 PROCEDURE(S) PERFORMED [id number] CLINICAL PROFILE AND INDICATIONS Indications: Valvular Disease Heart Failure: None Stress/Imaging Stress/Image Study Performed: No CAD Presentations: No Sxs, no angina. CONCLUSIONS Normal coronary arteries Aortic Valve Stenosis- Severe RECOMMENDATIONS TAVR DESCRIPTION OF PROCEDURE The patient arrived to the procedure lab. The risks and benefits of the procedure as well as a full d escription of our services here and current unavailability of surgical backup were fully explained to the patient and/or their significant other prior to the catheterization. The Timeout was completed, verifying the correct patient and procedure. The patient's procedural site was prepped and draped in the usual fashion. Local anesthetic was given subcutaneously to right radial region with Lidocaine 2% . Using a modified Seldinger technique, arterial access was obtained via the right radial artery, a 6 Fr sheath was inserted. Left Coronary Artery selective angiography was performed in multiple views u sing a 5 Fr. 4.0 Rulo catheter. Right Coronary Artery selective angiography was then performed in mu ltiple views using a 5 Fr. 4.0 Rulo catheter.The arterial sheath was pulled and a TR Band was applie d for hemostasis CORONARY ANGIOGRAPHY DOMINANCE: Right Dominant LEFT HEART ASSESSMENT Left Ventricular Ejection Fraction: by Echo 65 % Normal LV wall motion LEFT MAIN: Angiographically normal LEFT ANTERIOR DESCENDING ARTERY: Angiographically normal CIRCUMFLEX ARTERY: Angiographically normal RIGHT CORONARY ARTERY: Angiographically normal VALVE FINDINGS: Aortic Valve Calcification - severe Aortic Valve Stenosis - severe COMPLICATIONS No Complications PROCEDURE MEDICATIONS Versed 1 mg IV Versed 1 mg IV Oxygen: 2 L/min via nasal cannula Heparin diluted in 23cc Heparinized saline. Patient given 10cc IA of this solution. 09/23/2020 08:57: 58 Verapamil 2.5mg, Ntg 100mcgs, 2000 units of Heparin diluted in 23cc Heparinized saline. Patient give n 10cc IA of this solution. 09/23/2020 08:57:58 SUMMARY OF HEMODYNAMIC DATA Time AIR REST ECG 07:44:48 AO 106/59 (77) SA 09:00:52 Signed By Mitch Diallo MD On 09/23/2020 09:25:51 Mitch Diallo MD
== END 2020-09-23 11:10 | disposition home or self-care (01) ==
LOC: CLSP 07:13
PROVIDERS: PCP Family Medicine; Referring Provider Internal Medicine Cardiovascular Disease; Visit Provider Internal Medicine Cardiovascular Disease
DX: I35.0 Nonrheumatic aortic (valve) stenosis (principal); R93.1 Abnormal findings on diagnostic imaging of heart and coronary circulation; M19.90 Unspecified osteoarthritis, unspecified site; H35.30 Unspecified macular degeneration; R09.89 Other specified symptoms and signs involving the circulatory and respiratory systems; G47.31 Primary central sleep apnea; G47.33 Obstructive sleep apnea (adult) (pediatric); Z79.899 Other long term (current) drug therapy; Z85.3 Personal history of malignant neoplasm of breast
CPT/HCPCS: 93005; 93454; 99152; J7040; Q9967; C1769; C1894

== ENCOUNTER → 2020-10-01 06:32 | Outpatient (CLI) | payer MEDICARE, SELFPAY ==
[2020-09-20 08:54] VITALS: BMI 25.7
[2020-10-01 07:13] LABS: Absolute Lymphocyte Count 1.68 X10^3/uL (0.83-4.51); Absolute Neutrophil Count 3.3 X10^3/uL (2.0-7.7); Basophil# 0.06 X10^3/uL; Eosinophil# 0.25 X10^3/uL; Eosinophils% 4.3 % (0-5); Hematocrit 42.6 % (37-47); Hemoglobin 13.9 g/dL (12.0-15.0); Lymphocyte # 1.68 X10^3/ul (4.0); Lymphocyte % 29.2 % (19-41); Mean Corp Hgb Conc 32.6 g/dL (32-36); Mean Corpuscular Hgb 29.9 pg (27.0-32.0); Mean Corpuscular Volume 91.6 fL (81-99); Mean Platelet Vol. 11.2 fl (6.2-12.0); Monocyte# 0.44 X10^3/uL; Monocyte% 7.7 % (0-10); NRBC Flagged by Analyzer 0 % (0-5); Neutrophil % 57.5 % (47-70); Platelet Count 251 K/mm3 (150-450); RBC Distribution Width SD 43.7 fl (35.1-43.9); Red Blood Count 4.65 M/mm3 (4.2-5.4); White Blood Count 5.8 K/mm3 (4.4-11.0)
--- NOTE | 2020-10-01 07:18 | RAD_ITS ---
STUDY: X-RAY - ABDOMEN/PELVIS REASON FOR EXAM: Female, 70 years old patient with right upper quadrant abdominal pain. TECHNIQUE: AP supine and upright views of the abdomen and pelvis. COMPARISON: Chest radiograph dated 09/11/2020. FINDINGS: Normal visualized lung bases. There is an unremarkable bowel gas pattern. There is no demonstrated free abdominal air. There is no obvious organomegaly, mass or dilated bowel. No pathologic calcifications are visualized. Normal soft tissue structures. There is degenerative disc disease at L3-4. RAD/Abd Inc Decub and/or Erect IMPRESSION: No radiographic evidence of acute intra-abdominal disease. Electronically Signed: Annamarie Richards MD at 7:41 EST , Service support ,
[2020-10-01 07:34] LABS: ALB/GLOB Ratio 1.1 RATIO (0.9-2.4); AST(SGOT) 19 U/L (15-37); Alanine Aminotransfer ALT/SGPT 30 U/L (13-56); Albumin, Serum 3.7 g/dL (3.2-5.0); Alkaline Phosphatase 63 U/L (45-117); Anion Gap 5 (5-15); BUN 16 mg/dL (7-18); BUN/Creat Ratio 23.2 RATIO (10-20); CRP < 2.90 mg/L (0.0-3.0); Calcium,Total 9.1 mg/dL (8.5-10.1); Chloride 104 mmol/L (98-107); Creatinine, Serum 0.69 mg/dL (0.55-1.02); EST Glomerular Filtration Rate 89 mL/min (>60); Est Glom Filt Rate - Afr Amer 108 mL/min (>60); Globulin 3.5 g/dL (2.2-4.2); Glucose 104 mg/dL (74-106); Lipase 153 U/L (73-393); Potassium 4.2 mmol/L (3.5-5.1); Protein, Total 7.2 g/dL (6.4-8.2); Sodium Level 140 mmol/L (136-145)
== END ==
PROVIDERS: PCP Family Medicine; Referring Provider Family Medicine; Visit Provider Family Medicine
DX: R10.11 Right upper quadrant pain (principal)
CPT/HCPCS: 36415; 74019; 80053; 83690; 85025; 86140

== ENCOUNTER → 2020-10-03 09:07 | Outpatient (CLI) | payer MEDICARE, SELFPAY ==
[2020-09-20 08:54] VITALS: BMI 25.7
--- NOTE | 2020-10-03 09:14 | US_ITS ---
STUDY: ABDOMINAL ULTRASOUND - RIGHT UPPER QUADRANT REASON FOR VISIT: Female, 70 years old RUQ PAIN TECHNIQUE: Ultrasound evaluation of the right upper quadrant was performed with real-time and static villalobos-scale imaging. TECHNICAL QUALITY: Adequate. COMPARISON: None. FINDINGS: Liver: The liver measures 13.3 cm. There is normal echogenicity of the liver. The bile ducts are within normal limits. There is hepatic color flow. The direction of portal flow is hepatopetal. There is no demonstrated mass lesion. Gallbladder: Normal distended gallbladder. The gallbladder wall measures 1 mm. There is a negative sonographic Cagle''s sign. There is no pericholecystic fluid. There are no gallstones. Common Bile Duct (C.B.D.): The common bile duct measures 4 mm. Pancreas: Normal size of the head, body and tail of the pancreas. There is normal echogenicity of the pancreas. There is no demonstrated pancreatic mass or cyst. Right Kidney: Normal size of the right kidney. The right kidney measures 9.2 cm x 4.5 cm x 4.4 cm. Normal renal cortex. The right cortex measures 1.2 cm. There is no demonstrated renal mass or cyst. There is no right hydronephrosis. US/Abdomen Limited IMPRESSION: Normal right upper quadrant ultrasound examination. Electronically Signed: Young Mejia, at 11:00 EST , Service support ,
== END ==
PROVIDERS: PCP Family Medicine; Referring Provider Family Medicine; Visit Provider Family Medicine
DX: R10.11 Right upper quadrant pain (principal)
CPT/HCPCS: 76705

== ENCOUNTER → 2020-11-11 10:53 | Outpatient (CLI) | payer MEDICARE, SELFPAY ==
[2020-09-20 08:54] VITALS: BMI 25.7
--- NOTE | 2020-11-11 10:56 | ADUL_ITS ---
Reason For Study: SWELLING S/P TAVR Right Velocities Common Femoral Artery, mid = 108.1 cm./sec. RT INTERLOCKER MAINTAINER measures 1.16 X 1.11 CM in cross sectional. RT CVFis compressible with normal waveforms; measures 1.12 X 1.12 CM in cross sectional. NO EVIDENCE OF PSEUDOANEURYSM. Procedure Exam performed in department. Interpretation Summary 1.16 x 1.11 cm right common femoral artery with normal arterial flow noted. 1.12 x 1.12 cm diameter right common femoral vein which demonstrates patency and compressibility No pseudoaneurysm or AV fistula identified. Ordering Physician: Chucho Gastelum Referring Physician: Jakub Dial Performed By: Nadine Herman, REYMUNDOCS, RVT
== END ==
PROVIDERS: PCP Family Medicine; Referring Provider Nurse Practitioner Family; Visit Provider Nurse Practitioner Family
DX: S75.011A Minor laceration of femoral artery, right leg, initial encounter (principal); X58.XXXA Exposure to other specified factors, initial encounter; Y93.9 Activity, unspecified; Y92.9 Unspecified place or not applicable; Y99.9 Unspecified external cause status; R60.9 Edema, unspecified
CPT/HCPCS: 93926

== ENCOUNTER → 2020-11-12 08:23 | Outpatient (CLI) | payer MEDICARE, SELFPAY ==
[2020-09-20 08:54] VITALS: BMI 25.7
--- NOTE | 2020-11-12 08:30 | CR.ITP_ITS ---
Diagnosis - General Information Admitting Diagnosis: Heart Valve Replacement 10/30/2020 Personal Learning Style:: Audio/Visual, Written Barriers to Learning: Vision Impairment Stage of change r/t lifestyle modifications:: Action Gave educational material for:: Treating Heart Disease, Emotions & Heart Disease, Stress Management & Relaxation, Sleep Disorders & Heart Disease, How The Heart Works, What it means to have Heart Disease, How Coronary Artery Disease is Diagnosed, Heart Procedures, What Heart Medications Do, Risk Factors & Modifications, Living an Active Life, Nutrition - Education/Goals Individual Counseling: Initial Assessment: Abnormal Cholesterol Levels, High Blood Pressure Cardiac Rehabilitation Goals: 1. Maintain the individual as the primary focus of care. 2. To improve the patient's quality of life. 3. Identification of cardiac risk factors and provide cardiac risk factor management. 4. Enhance the psychosocial status of the patient. 5. Reconditioning enough to allow the patient to resume customary activities. 6. Control symptoms of cardiac disease Personal Goals: Initial Assessment: Improve management of stress and emotions, Improve energy level, Participate in home exercise program, Get back to work, or to resume activities faster, Improve muscle strength and endurance, Improve diet and eating habits (eat healthier), Control risk factors (learn risk factor modification) Scale for measuring improvement of personal goals: Enter appropriate number in Comments. 2 = Unchanged. 3 = Slightly Better. 4 = Moderate Improvement. 5 = Met my Goal - Diagnosis & Disease Process Outcomes/Goals: Pt IDs own risk factors & lifestyle modifications by Session 10, Verbalizes symptoms of angina & response by session 3., Pt independently manages Plan/Interventions: Assist Pt to ID & engage in lifestyle modification to reduce CVD risk, Instruct on individual risk factors, Review symptoms of angina & emergency actions, Review secondary diagnosis & identify educational needs. - Safety Referral to Physical Therapy: No Referral to [facility] Case Management: No Fall Risk Assessed:: Yes Assistive Devices:: None Exercise - Initial Assessment - Visit Date of Eval: 11/12/20 Session #:: 0 - Pre cardiac rehab evaluation Mets: Pre-: >5 METS for 30 minutes by discharge - Physician Prescribed Exercise Modalities: Treadmill, Airdyne, NuStep, SciFit Frequency: 3x/week for 12 weeks [36 sessions] Intensity: 60-80% of age predicted maximum heart rate reserve Current METSs:: 3.5 Target Heart Rate:: 98-127 Resting Blood Pressure: 128/76 EKG Type: Sinus Rhythm with 1st degree block - Outcomes & Goals Goals:: Verbalizes understanding of THR, RPE & goal METS by session 6, Documents in home exercise log/reports 30 min aerobic 5 day/wk by DC, Demonstrates accurate pulse taking by DC - Intervention & Plan Exercise Program Goals: Instruct on personal THR & RPE, Instruct on MET level & personal MET goal, Show patient to take own pulse /validate performance until accurate, Instruct on home exercise - Physical Activity Home Exercise Physical Activity - Home Exercise: Safe Exercise, Warm-up, Self-monitoring, Cool-Down, Home Exercise > 30 min Daily, Sitting Time <3 hours/daily - Outcomes & Goals Outcomes/Goals: Demonstrates correct Warm-up/exercise Cool-Down (S3) if = 2.5 METs, Verbalizes symptoms of exercise intolerance by Session 3 (S3), Demonstrate safe equipment use (S3) & follows exercise prescrition (6) - Intervention & Plan Plan/Intervention: Instruct warm-up & cool-down if exercising at > 2 METs, Instruct on symptoms of exercise intolerance & actions to take, Instruct & monitor on saf, Assess intial functional capacity & safety risk Nutrition - Initial Assessment - Program Goals Nutrition Program Goals: LDL <100 optimal. 100 - 129 Near optimal. 130 - 159 Borderline High. 160 - 189 High. Total Cholesterol <200 desirable. 200 - 239 Borderline High. >/= 240 High. HDL < 40 Low >/=60 High. Triglycerides <150 desirable. <199 optimal. VlDL 5 - 40. HgbA1C <7%. BMI <25 Patient has diagnosis of Hyperlipidemia (ICD E78)?: Yes - Visit Date of Assessment:: 11/12/20 Session #:: 0 - precardiac rehab evaluation - Cholesterol/Lipids Triglycerides (mg/dL): 86 - 08/28/2019 LDL Cholesterol (mg/dL): 117 HDL Cholesterol (mg/dL): 78 Determine presence & major risk factors that modify LDL goal: Hypertension or hypertensive medication, Age men > 45 years; women >/= 55 years Outcomes/Goals: Pt IDs own risk factors & lifestyle modifications by Session 10, Verbalizes symptoms of angina & response by session 3., Pt independently manages Intervention/Plan: Instruct on personal lipid levels & lipid goals/NCEP guidelines, Instruct on cholesterol Referral to dietitian:: No - Patient declined Nutritional Therapy - Diabetes (Other Core Measures) Diabetes Type: Not Applicable - Weight Mgt (Other Care) Not Applicable: Yes Height: 5 ft 5 in Weight:: 155 lb BMI: 25.7 Diagnosis Overweight/Obesity BMI> 30% ICD-10 E66: No Diagnosis High BMI/Morbid Obesity BMI> 35% ICD-10 Z68: No Outcomes/Goals: Pt sets, maintains & shows weight loss goal & trend during rehab Intervention/Plan: Instruct on ideal BMI & set weight loss goal w/patient - Healthy Eating Habits Will attend diet classes:: Yes Outcomes/Goals:: Consume diet rich in vegs,fruits,whole grain/high fiber,fish,lean meat, Limit sat/trans fats,cholesterol & added salts & sugars Intervention/Plan:: Assess current eating habits Medical - Initial Assessment - Visit Date of Eval: 11/12/20 Session #:: [facility] - Medication Compliance H/O mental health issues: depression, anxiety, or addiction?: No Doesn?t believe in the benefits of treatment?: No Believes medications are unnecessary or harmful?: No Has a concern about medication side effects?: No Expresses concern over the cost of medications?: No Outcomes/Goals: Verbalizes medications,desired effect & common side effects @ DC, Pt self-reports following medication regimen, Keeps card in wallet w/medications listed by DC Interventions/plans: Instruct on medication effects & side effects, Review medication list w/patient every two weeks, Instruct importance of taking meds as ordered & assist problem solving - Tobacco Use Tobacco Use: Non-smoker - Hypertension Hypertension Diagnosis:: Hypertension ICD-10 I10 Resting Blood Pressure:: 128/76 [place] [employer] Hypertension Guidelines: [place] [employer] Hypertension Guidelines. Normal BP Less than 120/80. Elevated BP 120/80. Hypertension Stage 1: BP 130-139/80-89. Hypertesnion Stage 2: BP 140 or higher/90 or higher. Hypertension Crisis: BP higher than 180/120 Outcomes/Goals: Able to verbalize/achieve optimal blood pressure <130/80, Incorporates diet changes & exercise for blood pressure control by DC Interventions/plan: Instruct on optimal blood pressure, hypertension & medications, Instruct on effects of sodium, alcohol, stress, exercise &hypertension - Tobacco Cessation Referral Smoking Cessation Referral:: No Individual Education/Counseling:: No Education Schedule Given:: Yes Psychosocial - Initial Assess - VIsit Date of Eval: 11/12/20 Session #:: 0 - pre-cardiac rehab evaluation Not Applicable: Yes History of previous Mental disease:: No - Target Goals Target Goals: Assess presence or absence of depression. Using a valid screening tool, maximizes coping skills. Positive support system - Psychosocial Test Tool Used:: Austin Moe QOL Cardiac, PHQ-9 Questionnaire phq-9 Severity: Severity. 1-4 Minimal Depression. 5-9 Mild Depression. 10-14 Moderate Depression. 15-19 Moderately Sever Depression. 20-27 Severe Depression. Rule: - Referral to Behavioral Health PS - Interventions: Yes Attend Stress Management Classes, No Referral to [facility] if PHQ-9 score >9:, No Referral to [facility], No Referral to Physician if PHQ-9 if score is 5-9: - Outcomes/Goals: See list Psychosocial Outcomes/Goals:: ID's personal stressors & 2 strategies to manage stress by discharge - Intervention/Plan: See List Interventions/Plan:: Assess stressors,coping strategies & signs of derpression on admission, Instruct/assist pt to develop coping & personal stress Mgt strategies, Instruct patient to recognize signs & symptoms of depression, Instruct patient to recog Patient Health Questionnaire Initial Assessment 1. Little interest or pleasure in doing things: Not at all 2. Feeling down, depressed, or hopeless: Not at all 4. Feeling tired or having little energy: Several days 5. Poor appetite or overeating: Not at all 6. Feeling bad about yourself -- or that you are a failure or have let yourself or your family down: Not at all 7. Trouble concentrating on things, such as reading the newspaper or watching television: Not at all 8. Moving or speaking so slowly that other people could have noticed. Or the opposite - being so fidgety or restless that you have been moving around a lot more than usual: Not at all 9. Thoughts that you would be better off , or of hurting yourself in some way: Not at all How difficult have these problems made it for you to do your work, take care of things at home, or get along with other people?: Not difficult at all Total Score: 1 AINSLEY-Q SV Test - Statements CAD is a disease of the arteries in the heart: False Examples of risk factors for heart disease: True Angina is chest pain or discomfort: True The benefits of resistance training include: True Eating more meat and dairy products: False Anti-platelet medications such as aspirin are important: True The only effective way to manage stress: False An exercise warm-up slowly increases heart rate: True Prepared, processed foods usually have high sodium: True Depression is common after a heart attack: True The statin medications lower cholesterol: True To control blood pressure, lower the amount of sodium: True If someone gets chest discomfort during walking: False Transfats are partially hydrogenated vegetable oils: True Sleep apnea that is not treated increases the risk: False To control cholesterol, one should become a vegetarian: False Someone knows if he/she is exercising at the right level: True Diabetes cannot be prevented with exercise & health eating: False Stress is a large risk for heart attack: True A diet that can help lower blood pressure is rich in: True - Total Score Total Correct Responses: 20 Self-Efficacy Initial Assessment We would like to know how confident you are in doing certain activities. Please select your confidence level for:: Select your confidence level for the following using the scale 1-10 where 1 is not at all confident and 10 is totally confident. Your score is the average of all 6 responses. Fatigue: How confident are you that you can keep the fatigue caused by your disease from interfering with the things you want to do? Select Number: 10 Physical Discomfort or Pain: How confident are you that you can keep the physical discomfort or pain of your disease from interfering with the things you want to do? Select Number: 10 Emotional Distress: How confident are you that you can keep the emotional distress caused by your disease from interfering with the things you want to do? Select Number: 10 Other Symptoms or Health Problems: How confident are you that you can keep other symptoms or health problems from interfering with the things you want to do? Select Number: 10 Different Tasks and Activities: How confident are you that you can do the different tasks and activities needed to manage your health condition so as to reduce your need to see a doctor? Select Number: 10 Medication: How confident are you that you can do things other than just taking medication to reduce how much your illness affects your everyday life? Select Number: 10 Total Score:: 10 Nutrition Survey - Nutrition Survey Instructions Scoring Instructions: Scoring is as follows: Yes = 1 points. No = 0 point. Patient score that is >/=12 is considered to be at potential nutritional risk and could benefit from a referral to a registered dietitian. - Nutrition Survey Initial Have you lost >10 lbs over the past 2 months without trying?: No Are you following a special diet at home for diabetes, low fat, or low salt?: No Are you interested in meeting with a dietitian for help understanding your diet? : No Do you eat less than 3 meals a day?: Yes Do you eat fatty meats (mack, sausage, ribs, etc), fried foods, desserts, large amounts of salad dressings, margarine, butter, or cheese most days?: No Do you have food allergies? [Enter types in comment field]: No Do you eat in restaurants more than 3 times a week?: No Do you season food with salt, seasoning salt, or garlic salt?: Yes Do you used canned, boxed, frozen meals, or soups, seasoning packets?: No Total Score:: 2
--- NOTE | 2020-11-12 08:31 | PCM.CR.HP2 ---
CR - History & Physical - General Arrival date:: 11/12/20 Arrival time:: 08:37 Date of Referral:: 11/08/20 Date of CR Evaluation:: 11/12/20 Referring Physician: Dr. Mitch Diallo Primary Diagnosis: Heart Valve Replacement - History of Present Cardiac Event Onset Date: Enter Onset Date of cardiac illnesses in Comment field below Heart valve replacement or repair:: Yes - 10/30/2020 Type of Symptoms:: None, found simply through testing. Interventions with present event:: Echocardiogram, etc. Were there any complications?: slight hematoma after surgery but is okay now. - Medications Home Medications: Ambulatory Orders Medication Instructions Recorded ascorbate calcium (vitamin C) 500 500 mg PO DAILY 08/27/20 mg tablet cholecalciferol (vitamin D3) 25 25 mcg PO DAILY 08/27/20 mcg (1,000 unit) capsule omega-3 fatty acids 1,000 mg 1,000 mg PO DAILY 08/27/20 capsule turmeric 400 mg capsule mg PO 08/27/20 clopidogrel 75 mg tablet 75 mg PO QDAY #90 tab 11/11/20 - Allergies Allergies/Adverse Reactions: Allergies Penicillins Allergy (Unknown, Verified 08/27/20 07:33) Unknown adhesive tape Allergy (Verified 08/27/20 07:33) Unknown zinc Allergy (Verified 08/27/20 07:33) Vomiting aspirin Adverse Reaction (Intermediate, Verified 09/25/20 14:14) Pt can take short time, but has severe nosebleeds - Sleep Disorder Evaluation Hx of Sleep Apnea: Yes Do you snore loudly (louder than talking or can be heard through closed doors)?: Yes - Central Sleep Disorder and Obstructive Sleep Apnea Do you often feel tired/ fatigued/ sleepy during daytime?: No Has anyone observed you stop breathing during sleep?: Yes History of Hypertension (for STOP score): Yes STOP Results: Positive Advanced Directives - Advanced Directives 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 Living Will: Yes Advance Directives Information Provided: No Advance Directives on File: Yes DNR Order?:: No - MOLST See MOLST form: No Past Medical History - Covid-19 Screening Fever: No Unexplained muscle aches: No Current respiratory symptoms: No Upper respiratory infections symptoms: No Gastro-intestinal symptoms: Yes - GERD Owy-Fodw-Ispwbj symptoms: No Has tested positive for COVID-19 in last 30 days: No Had contact w/person w/symptoms or Covid-19 (+) last 14 days: No Has High Risk Exposures ID'd by Health dept/Inf Control team: No 65 years or older:: Yes Lives in Assisted Living facility:: No Has a chronic lung disease or moderate to severe asthma:: No Has a serious heart condition:: Yes Immunocompromised:: Yes Severely obese (Body Mass Index of 40 or higher):: No Diabetic:: No Has chronic kidney disease undergoing dialysis:: No - Past Medical Illness Medical History: Past Medical History (Last Reviewed 08/27/20 @ 10:[address] Mitch Diallo MD) Non-rheumatic aortic stenosis (Chronic) I35.0 Amaurosis fugax (Resolved) G45.3 History of right breast cancer (Chronic) Z85.3 Arthritis M19.90 Central sleep apnea G47.31 Left carotid bruit R09.89 Macular degeneration H35.30 Obstructive sleep apnea G47.33 Hyperlipidemia E78.5 Lymphedema of right arm I89.0 Bicuspid aortic valve (Ruled-out) Q23.1 - Past Surgical History Surgical History: Past Surgical History (Last Updated 11/08/20 @ 14:48 by Didi Flowers) S/p TAVR (transcatheter aortic valve replacement), bioprosthetic (Chronic) Onset Date: 10/30/[address] Goldy Campos @ [facility] 10/30/2020 H/O cataract extraction Z98.49 History of cataract surgery Z98.49 History of corneal transplant Z94.7 History of left heart catheterization Z98.890 History of mastectomy Z90.10 History of nasal septoplasty Z98.890 Surgical History: noncontributory - Family History Summary Family History: Family History (Last Reviewed 08/27/20 @ 10:[address] 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 Recreational Activities: I am able to engage in all my recreational activities Social Environment - Status Marital Status: Single - Current Living Arrangements Living Environment:: Alone - Safety Do you feel safe in your surroundings?: Yes Review of Systems - Review of Systems Hints: Right click = Denies (Slash). Left click = Reports ([place]) Review of Present Symptoms: Reports: Wound Healing, Dizziness/Lightheadedness - did experience some this week and over the weekend., Appetite - Normal, Appetite - Special Diet. Denies: Shortness of Breath at Rest, Shortness of Breath with Exertion, Operative Discomfort, Fatigue, Sleep - Normal - having difficulty with sleep due to sleep apnea machine, causing bloating and stuffiness. - Pain Is Patient Pain Free?: Yes Pain Location: none Pain Level: 0/10 Risk Factor Assessment - Chief Complaint Chief Complaint: Patient is a [address] Diallo who presentst o cardiac rehab today following a recent heart valve replacement procedure on 10/30/2020. 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 - Vital Signs Temperature: 97.7 F Respiratory Rate: 16 Pulse Ox: 96 Blood Pressure: 128/76 - Pulse Pulse Rate: 60 Pulse Rhythm: Regular - Hypertension Blood Pressure Sitting - Left Arm: 128/76 - Blood Cholesterol/Lipids HDL Cholesterol (mg/dL) Goal = less than 40 mg/dL: 78 - 08/28/2019 LDL Cholesterol (mg/dL) Goal = less than 70 mg/dL: 117 Triglycerides (mg/dL) Goal = less than 150 mg/dL: 86 - Obesity Height: 5 ft 5 in Weight:: 155 lb Weight in Pounds: 155.0 lbs Weight Source: Standing Scale Body Mass Index (BMI): 25.7 Nutritional Referral for Obesity: No - Physical Inactivity Physical Inactivity: Reg Exercise 30 min/day, Physically demanding job - Risk Stratification Risk Guidelines: Lowest Risk: Risk Factor for Smoking, Risk Factor for Dyslipidemia, Risk Factor for Diabetes, Risk Factor for Obesity, Risk Factor for Hypertension, Risk Factor for Sedentary Lifestyle, Risk Factor for Depression - For Smoking Smoking Risk Guidelines: Smoking Low Risk: None or quit greater than 6 months ago. Smoking Moderate Risk: Smoker or quit 6 months or less ago. Smoking High Risk: Smoker - For Dyslipidemia Dyslipidemia Risk Guidelines: Low Risk: Moderate Risk: High Risk: 15-25% fat 25.1-29% fat >/= 30% fat. <7% sat fat 7-9% sat fat >9% sat fat. <150 mg chol 150-299 mg chol >/= 300 mg chol. LDL <100 LDL 100-129 LDL >/= 130. Chol/HDL ratio <5.0 Chol/HDL ratio 5.0-6.0 Chol/HDL ratio >6.0. Triglycerides <100 Triglycerides 100-149 Triglycerides >/= 150 - For Diabetes Mellitus Diabetes Risk Guidelines: Diabetes Low Risk: HgA1c <6.5% and/or FBG <120. Diabetes Moderate Risk: HgA1c 6.6-7.9% and/or FBG 120-180. Diabetes High Risk: HgA1c >/= 8% and/or FBG >180 - For Obesity/Overweight Obesity/Overweight Risk Guidelines: Obesity Low Risk: BMI <25.0. Obesity Moderate Risk: BMI 25-29.9. Obesity High Risk: BMI >/= 30.0 - For Hypertension Hypertension Risk Guidelines: Hypertension Low Risk: Systolic <120 and Diastolic <80. Hypertension Moderate Risk: Systolic 120-139 and Diastolic 80-89. Hypertension High Risk: Systolic >/= 140 and Diastolic >/= 90 - For Sedentary Lifestyle Sedentary Lifestyle Risk Guidelines: Sedentary Lifestyle Low Risk: >/= 1,500 kcal/week. Sedentary Lifestyle Moderate Risk: 700-1,499 kcal/week. Sedentary Lifestyle High Risk: < 700 kcal/week - For Depression Depression Risk Guidelines: Depression Low Risk: Not clinically depressed. Depression Moderate Risk: Mildly depressed. Depression High Risk: Clinically depressed - Family History Family History: Family History (Last Reviewed 08/27/20 @ 10:[address] Mitch Diallo MD) Mother Heart disease Motivation - Motivation to Participate On a scale of 1 to 10, how prepared are you to commit to attending program?: 10 What do you see as barriers to successfully being able to complete the program?: work schedules What do you see as the benefits of succesfully completing the program? In other words, what do you hope to get out of participating in the program?: better health more energy building muscle Are there issues you are dealing with that will interfere with completing the program?: none Do you have a spouse or signficant other, family or friends who will help support you to complete the program?: yes.
[2020-11-12 08:52] VITALS: BP 128/76; BMI 25.7
[2020-11-12 09:02] VITALS: BP 128/76; PULSE 60; RESP 16; TEMP 36.5; O2SAT 96; BMI 25.7
== END ==
PROVIDERS: PCP Family Medicine; Referring Provider Internal Medicine Cardiovascular Disease; Visit Provider Internal Medicine Cardiovascular Disease
DX: Z95.3 Presence of xenogenic heart valve (principal)

== ENCOUNTER 2020-12-13 15:15 | Outpatient (RCR) | payer MEDICARE, SELFPAY ==
[2020-11-12 08:52] VITALS: BMI 25.7
[2020-11-12 09:02] VITALS: BMI 25.7
== END 2020-12-15 23:59 ==
LOC: CR 15:15
PROVIDERS: PCP Family Medicine; Visit Provider Internal Medicine Cardiovascular Disease
DX: Z95.3 Presence of xenogenic heart valve (principal)
CPT/HCPCS: 93798

== ENCOUNTER → 2020-12-23 15:44 | Outpatient (CLI) | payer MEDICARE, SELFPAY ==
[2020-11-12 08:52] VITALS: BMI 25.7
[2020-11-12 09:02] VITALS: BMI 25.7
[2020-12-23 16:32] LABS: Hematocrit 41.5 % (37-47); Hemoglobin 13.4 g/dL (12.0-15.0); Mean Corp Hgb Conc 32.3 g/dL (32-36); Mean Corpuscular Hgb 29.7 pg (27.0-32.0); Mean Platelet Vol. 11.2 fl (6.2-12.0); Platelet Count 250 K/mm3 (150-450); RBC Distribution Width CV 13.3 % (11.6-14.6); Red Blood Count 4.51 M/mm3 (4.2-5.4); White Blood Count 5.5 K/mm3 (4.4-11.0)
== END ==
PROVIDERS: PCP Family Medicine; Visit Provider Internal Medicine Cardiovascular Disease
DX: R23.8 Other skin changes (principal)
CPT/HCPCS: 36415; 85027

== ENCOUNTER 2021-01-15 15:15 | Outpatient (RCR) | payer MEDICARE, SELFPAY ==
[2020-11-12 08:52] VITALS: BMI 25.7
[2020-11-12 09:02] VITALS: BMI 25.7
--- NOTE | 2021-01-10 06:26 | PCM.CR.ITP ---
Exercise - 60-day Assessment - Visit Date of Eval: 01/10/21 Session #:: 22 - Patient has only missed 2 sessions - Physician Prescribed Exercise Modalities: Treadmill, Rower, Airdyne, NuStep Frequency: 3x/week for 12 weeks [36 sessions] Intensity: 60-80% of age predicted maximum heart rate reserve Current METSs:: 6.0 increase from 5.0 Target Heart Rate:: 98-127 Current RPE:: 12-13 Maximum Excercise HR:: 127 one episode of ectopic atrial tachycardia rate 150 Resting Blood Pressure: 114/50 Maximum Exercise Blood Pressure: 170/82 EKG Type: NSR to sinus tach BBB rare PVC. Current Physical Activity or Exercising minutes: patient is very active - Outcomes & Goals Goals:: Verbalizes understanding of THR, RPE & goal METS by session 6, Documents in home exercise log/reports 30 min aerobic 5 day/wk by DC, Demonstrates accurate pulse taking by DC - Intervention & Plan Exercise Program Goals: Instruct on personal THR & RPE, Instruct on MET level & personal MET goal, Show patient to take own pulse /validate performance until accurate, Instruct on home exercise - 30-day Reassessments 30 day Reassessments:: Progressing - Physical Activity Home Exercise Physical Activity - Home Exercise: Safe Exercise, Warm-up, Self-monitoring, Cool-Down, Home Exercise > 30 min Daily, Sitting Time <3 hours/daily - Outcomes & Goals Outcomes/Goals: Demonstrates correct Warm-up/exercise Cool-Down (S3) if = 2.5 METs, Verbalizes symptoms of exercise intolerance by Session 3 (S3), Demonstrate safe equipment use (S3) & follows exercise prescrition (6) - Intervention & Plan Plan/Intervention: Instruct warm-up & cool-down if exercising at > 2 METs, Instruct on symptoms of exercise intolerance & actions to take, Instruct & monitor on saf, Assess intial functional capacity & safety risk - 30-day Reassessments 30 day Reassessments:: Progressing Nutrition - 60-Day Assessment - Program Goals Nutrition Program Goals: LDL <100 optimal. 100 - 129 Near optimal. 130 - 159 Borderline High. 160 - 189 High. Total Cholesterol <200 desirable. 200 - 239 Borderline High. >/= 240 High. HDL < 40 Low >/=60 High. Triglycerides <150 desirable. <199 optimal. VlDL 5 - 40. HgbA1C <7%. BMI <25 Patient has diagnosis of Hyperlipidemia (ICD E78)?: Yes - Visit Date of Assessment:: 01/10/21 Session #:: 22 - Cholesterol/Lipids Triglycerides (mg/dL): 64 - 09/10/2020 Total Cholesterol (mg/dL): 252 LDL Cholesterol (mg/dL): 139 HDL Cholesterol (mg/dL): 100 Determine presence & major risk factors that modify LDL goal: Hypertension or hypertensive medication, Age men > 45 years; women >/= 55 years Outcomes/Goals: Pt IDs own risk factors & lifestyle modifications by Session 10, Verbalizes symptoms of angina & response by session 3., Pt independently manages Intervention/Plan: Instruct on personal lipid levels & lipid goals/NCEP guidelines, Instruct on cholesterol Referral to dietitian:: Yes - Medical Nutrition Therapy 30-day Reassessments:: Progressing - Diabetes (Other Core Measures) Diabetes Type: Not Applicable - Weight Mgt (Other Care) Not Applicable: Yes Height: 5 ft 5 in Weight:: 159 lb BMI: 26.4 Diagnosis Overweight/Obesity BMI> 30% ICD-10 E66: No Diagnosis High BMI/Morbid Obesity BMI> 35% ICD-10 Z68: No Outcomes/Goals: Pt sets, maintains & shows weight loss goal & trend during rehab Intervention/Plan: Instruct on ideal BMI & set weight loss goal w/patient 30 day Reassessments:: Met - Healthy Eating Habits Will attend diet classes:: Yes Outcomes/Goals:: Consume diet rich in vegs,fruits,whole grain/high fiber,fish,lean meat, Limit sat/trans fats,cholesterol & added salts & sugars Intervention/Plan:: Assess current eating habits 30-day Reassessments:: Progressing Medical- 60-Day Assessment - Visit Date of Eval: 01/10/21 Session #:: 22 - Medication Compliance H/O mental health issues: depression, anxiety, or addiction?: No Doesn?t believe in the benefits of treatment?: No Believes medications are unnecessary or harmful?: Yes - Uses Vitamin C, Vitamin D, [place]-3, turmeric Has a concern about medication side effects?: Yes - Believes in natural remedies Expresses concern over the cost of medications?: No Outcomes/Goals: Verbalizes medications,desired effect & common side effects @ DC, Pt self-reports following medication regimen, Keeps card in wallet w/medications listed by DC Interventions/plans: Instruct on medication effects & side effects, Review medication list w/patient every two weeks, Instruct importance of taking meds as ordered & assist problem solving 30-day Reassessments:: Progressing - Tobacco Use Tobacco Use: Non-smoker - Hypertension Hypertension Diagnosis:: Hypertension ICD-10 I10 Resting Blood Pressure:: 114/50 [place] [employer] Hypertension Guidelines: [place] [employer] Hypertension Guidelines. Normal BP Less than 120/80. Elevated BP 120/80. Hypertension Stage 1: BP 130-139/80-89. Hypertesnion Stage 2: BP 140 or higher/90 or higher. Hypertension Crisis: BP higher than 180/120 Peak Exercise Blood Pressure:: 170/82 Outcomes/Goals: Able to verbalize/achieve optimal blood pressure <130/80, Incorporates diet changes & exercise for blood pressure control by DC Interventions/plan: Instruct on optimal blood pressure, hypertension & medications, Instruct on effects of sodium, alcohol, stress, exercise &hypertension 30 day Reassessments:: Progressing - Tobacco Cessation Referral Smoking Cessation Referral:: No Individual Education/Counseling:: No Education Schedule Given:: Yes Psychosocial - 60-Day Assess - VIsit Date of Eval: 01/10/21 Session #:: 22 Not Applicable: Yes History of previous Mental disease:: No - Target Goals Target Goals: Assess presence or absence of depression. Using a valid screening tool, maximizes coping skills. Positive support system - Psychosocial Test Tool Used:: PHQ-9 Questionnaire phq-9 Severity: Severity. 1-4 Minimal Depression. 5-9 Mild Depression. 10-14 Moderate Depression. 15-19 Moderately Sever Depression. 20-27 Severe Depression. Rule: - Referral to Behavioral Health PS - Interventions: Yes Attend Stress Management Classes, No Referral to Behavioral Health if PHQ-9 score >9:, No Referral to [facility], No Referral to Physician if PHQ-9 if score is 5-9: - Outcomes/Goals: See list Psychosocial Outcomes/Goals:: ID's personal stressors & 2 strategies to manage stress by discharge - Intervention/Plan: See List Interventions/Plan:: Assess stressors,coping strategies & signs of derpression on admission, Instruct/assist pt to develop coping & personal stress Mgt strategies, Instruct patient to recognize signs & symptoms of depression, Instruct patient to recog - 30-day Reassessments: 30 day Reassessments:: Met Patient Health Questionnaire 60-Day Re-eval Assessment 1. Little interest or pleasure in doing things: Not at all 2. Feeling down, depressed, or hopeless: Not at all 3. Trouble falling or staying asleep, or sleeping too much: Not at all 4. Feeling tired or having little energy: Not at all 5. Poor appetite or overeating: Not at all 6. Feeling bad about yourself -- or that you are a failure or have let yourself or your family down: Not at all 7. Trouble concentrating on things, such as reading the newspaper or watching television: Not at all 8. Moving or speaking so slowly that other people could have noticed. Or the opposite - being so fidgety or restless that you have been moving around a lot more than usual: Not at all 9. Thoughts that you would be better off , or of hurting yourself in some way: Not at all Total Score: 0 Self-Efficacy 60-Day Re-eval Assessment We would like to know how confident you are in doing certain activities. Please select your confidence level for:: Select your confidence level for the following using the scale 1-10 where 1 is not at all confident and 10 is totally confident. Your score is the average of all 6 responses. Fatigue: How confident are you that you can keep the fatigue caused by your disease from interfering with the things you want to do? Select Number: 10 Physical Discomfort or Pain: How confident are you that you can keep the physical discomfort or pain of your disease from interfering with the things you want to do? Select Number: 10 Emotional Distress: How confident are you that you can keep the emotional distress caused by your disease from interfering with the things you want to do? Select Number: 10 Other Symptoms or Health Problems: How confident are you that you can keep other symptoms or health problems from interfering with the things you want to do? Select Number: 10 Different Tasks and Activities: How confident are you that you can do the different tasks and activities needed to manage your health condition so as to reduce your need to see a doctor? Select Number: 10 Medication: How confident are you that you can do things other than just taking medication to reduce how much your illness affects your everyday life? Select Number: 10 Total Score:: 10
[2021-01-10 06:35] VITALS: BP 114/50; BP 170/82; BMI 26.4
== END 2021-01-15 23:59 ==
LOC: CR 15:15
PROVIDERS: PCP Family Medicine; Visit Provider Internal Medicine Cardiovascular Disease
DX: Z95.3 Presence of xenogenic heart valve (principal)
CPT/HCPCS: 93798

== ENCOUNTER 2021-02-10 15:15 | Outpatient (RCR) | payer MEDICARE, SELFPAY ==
[2020-11-12 09:02] VITALS: BMI 25.7
[2021-01-10 06:35] VITALS: BMI 26.4
[2021-01-16 00:20] VITALS: BP 114/50; BP 170/82
--- NOTE | 2021-02-10 07:11 | PCM.CR.ITP ---
Exercise - Final/Discharge - Visit Date of Eval: 02/10/21 Session #:: 35 - Physician Prescribed Exercise Modalities: Treadmill, Rower, Airdyne, NuStep, SciFit Frequency: 3x/week for 12 weeks [36 sessions] Intensity: 60-80% of age predicted maximum heart rate reserve Current METSs:: 7.0 increased from intial 3.5! Target Heart Rate:: 98-127 Current RPE:: 13 Maximum Excercise HR:: 139 Resting Blood Pressure: 142/60 Maximum Exercise Blood Pressure: 192/70 EKG Type: NSR to sinus tach w/occas. PVCs. - Outcomes & Goals Goals:: Verbalizes understanding of THR, RPE & goal METS by session 6, Documents in home exercise log/reports 30 min aerobic 5 day/wk by DC, Demonstrates accurate pulse taking by DC - Intervention & Plan Exercise Program Goals: Instruct on personal THR & RPE, Instruct on MET level & personal MET goal, Show patient to take own pulse /validate performance until accurate, Instruct on home exercise - 30-day Reassessments 30 day Reassessments:: Met - Physical Activity Home Exercise Physical Activity - Home Exercise: Safe Exercise, Warm-up, Self-monitoring, Cool-Down, Home Exercise > 30 min Daily, Sitting Time <3 hours/daily - Outcomes & Goals Outcomes/Goals: Demonstrates correct Warm-up/exercise Cool-Down (S3) if = 2.5 METs, Verbalizes symptoms of exercise intolerance by Session 3 (S3), Demonstrate safe equipment use (S3) & follows exercise prescrition (6) - Intervention & Plan Plan/Intervention: Instruct warm-up & cool-down if exercising at > 2 METs, Instruct on symptoms of exercise intolerance & actions to take, Instruct & monitor on saf, Assess intial functional capacity & safety risk - 30-day Reassessments 30 day Reassessments:: Met Nutrition - Final Assessment - Program Goals Nutrition Program Goals: LDL <100 optimal. 100 - 129 Near optimal. 130 - 159 Borderline High. 160 - 189 High. Total Cholesterol <200 desirable. 200 - 239 Borderline High. >/= 240 High. HDL < 40 Low >/=60 High. Triglycerides <150 desirable. <199 optimal. VlDL 5 - 40. HgbA1C <7%. BMI <25 Patient has diagnosis of Hyperlipidemia (ICD E78)?: Yes - Visit Date of Assessment:: 02/10/21 Session #:: 35 - no recent labs drawn - Cholesterol/Lipids Determine presence & major risk factors that modify LDL goal: Hypertension or hypertensive medication, Family history of premature CHD in Male < 55 years: female <65 yearsFa, Age men > 45 years; women >/= 55 years Outcomes/Goals: Pt IDs own risk factors & lifestyle modifications by Session 10, Verbalizes symptoms of angina & response by session 3., Pt independently manages Intervention/Plan: Instruct on personal lipid levels & lipid goals/NCEP guidelines, Instruct on cholesterol Referral to dietitian:: No 30-day Reassessments:: Progressing - Diabetes (Other Core Measures) Diabetes Type: Not Applicable - Weight Mgt (Other Care) Not Applicable: Yes Height: 5 ft 5 in Weight:: 157 lb - unchanged weight BMI: 26.1 Diagnosis Overweight/Obesity BMI> 30% ICD-10 E66: No Diagnosis High BMI/Morbid Obesity BMI> 35% ICD-10 Z68: No Outcomes/Goals: Pt sets, maintains & shows weight loss goal & trend during rehab Intervention/Plan: Instruct on ideal BMI & set weight loss goal w/patient 30 day Reassessments:: Met - Healthy Eating Habits Will attend diet classes:: Yes Outcomes/Goals:: Consume diet rich in vegs,fruits,whole grain/high fiber,fish,lean meat, Limit sat/trans fats,cholesterol & added salts & sugars Intervention/Plan:: Assess current eating habits 30-day Reassessments:: Met Medical - Final Assessment - Visit Date of Eval: 02/10/21 Session #:: 35 - Medication Compliance H/O mental health issues: depression, anxiety, or addiction?: No Doesn?t believe in the benefits of treatment?: No Believes medications are unnecessary or harmful?: Yes - Uses herbs mineral vitamins Has a concern about medication side effects?: Yes Expresses concern over the cost of medications?: No Outcomes/Goals: Verbalizes medications,desired effect & common side effects @ DC, Pt self-reports following medication regimen, Keeps card in wallet w/medications listed by DC Interventions/plans: Instruct on medication effects & side effects, Review medication list w/patient every two weeks, Instruct importance of taking meds as ordered & assist problem solving 30-day Reassessments:: Progressing - Tobacco Use Tobacco Use: Non-smoker - Hypertension Hypertension Diagnosis:: Hypertension ICD-10 I10 Resting Blood Pressure:: 142/60 [place] [employer] Hypertension Guidelines: [place] [employer] Hypertension Guidelines. Normal BP Less than 120/80. Elevated BP 120/80. Hypertension Stage 1: BP 130-139/80-89. Hypertesnion Stage 2: BP 140 or higher/90 or higher. Hypertension Crisis: BP higher than 180/120 Peak Exercise Blood Pressure:: 192/70 Outcomes/Goals: Able to verbalize/achieve optimal blood pressure <130/80, Incorporates diet changes & exercise for blood pressure control by DC Interventions/plan: Instruct on optimal blood pressure, hypertension & medications, Instruct on effects of sodium, alcohol, stress, exercise &hypertension 30 day Reassessments:: Met - Tobacco Cessation Referral Smoking Cessation Referral:: No Individual Education/Counseling:: No Education Schedule Given:: Yes Psychosocial - Final Assessmen - VIsit Date of Eval: 02/10/21 Session #:: 35 Not Applicable: Yes History of previous Mental disease:: No - Target Goals Target Goals: Assess presence or absence of depression. Using a valid screening tool, maximizes coping skills. Positive support system - Psychosocial Test Tool Used:: [employer] QOL Cardiac, PHQ-9 Questionnaire phq-9 Severity: Severity. 1-4 Minimal Depression. 5-9 Mild Depression. 10-14 Moderate Depression. 15-19 Moderately Sever Depression. 20-27 Severe Depression. Rule: - Referral to Behavioral Health PS - Interventions: Yes Attend Stress Management Classes, No Referral to Behavioral Health if PHQ-9 score >9:, No Referral to [facility], No Referral to Physician if PHQ-9 if score is 5-9: - Outcomes/Goals: See list Psychosocial Outcomes/Goals:: ID's personal stressors & 2 strategies to manage stress by discharge - Intervention/Plan: See List Interventions/Plan:: Assess stressors,coping strategies & signs of derpression on admission, Instruct/assist pt to develop coping & personal stress Mgt strategies, Instruct patient to recognize signs & symptoms of depression, Instruct patient to recog - 30-day Reassessments: 30 day Reassessments:: Met Patient Health Questionnaire Discharge Assessment 1. Little interest or pleasure in doing things: Not at all 2. Feeling down, depressed, or hopeless: Not at all 3. Trouble falling or staying asleep, or sleeping too much: Not at all 4. Feeling tired or having little energy: Not at all 5. Poor appetite or overeating: Not at all 6. Feeling bad about yourself -- or that you are a failure or have let yourself or your family down: Not at all 7. Trouble concentrating on things, such as reading the newspaper or watching television: Not at all 8. Moving or speaking so slowly that other people could have noticed. Or the opposite - being so fidgety or restless that you have been moving around a lot more than usual: Not at all 9. Thoughts that you would be better off , or of hurting yourself in some way: Not at all Total Score: 0 Self-Efficacy Discharge Assessment We would like to know how confident you are in doing certain activities. Please select your confidence level for:: Select your confidence level for the following using the scale 1-10 where 1 is not at all confident and 10 is totally confident. Your score is the average of all 6 responses. Fatigue: How confident are you that you can keep the fatigue caused by your disease from interfering with the things you want to do? Select Number: 10 Physical Discomfort or Pain: How confident are you that you can keep the physical discomfort or pain of your disease from interfering with the things you want to do? Select Number: 10 Emotional Distress: How confident are you that you can keep the emotional distress caused by your disease from interfering with the things you want to do? Select Number: 10 Other Symptoms or Health Problems: How confident are you that you can keep other symptoms or health problems from interfering with the things you want to do? Select Number: 10 Different Tasks and Activities: How confident are you that you can do the different tasks and activities needed to manage your health condition so as to reduce your need to see a doctor? Select Number: 10 Medication: How confident are you that you can do things other than just taking medication to reduce how much your illness affects your everyday life? Select Number: 10 Total Score:: 10 Nutrition Survey - Nutrition Survey Instructions Scoring Instructions: Scoring is as follows: Yes = 1 points. No = 0 point. Patient score that is >/=12 is considered to be at potential nutritional risk and could benefit from a referral to a registered dietitian. - Nutrition Survey Discharge Have you lost >10 lbs over the past 2 months without trying?: No Are you following a special diet at home for diabetes, low fat, or low salt?: No Are you interested in meeting with a dietitian for help understanding your diet?: No Do you eat less than 3 meals a day?: No Do you eat fatty meats (mack, sausage, ribs, etc), fried foods, desserts, large amounts of salad dressings, margarine, butter, or cheese most days?: No Do you have food allergies? [Enter types in comment field]: No Do you eat in restaurants more than 3 times a week?: No Do you season food with salt, seasoning salt, or garlic salt?: No Do you used canned, boxed, frozen meals, or soups, seasoning packets?: No Total Score:: 0
[2021-02-10 07:17] VITALS: BP 142/60; BP 192/70; BMI 26.1
== END 2021-02-14 23:59 ==
LOC: CR 15:15
PROVIDERS: PCP Family Medicine; Visit Provider Internal Medicine Cardiovascular Disease
DX: Z95.3 Presence of xenogenic heart valve (principal)
CPT/HCPCS: 93798

== ENCOUNTER → 2021-02-11 10:56 | Outpatient (CLI) | payer MEDICARE, SELFPAY ==
[2021-01-20 11:21] VITALS: BMI 26.2
[2021-02-10 07:17] VITALS: BMI 26.1
[2021-02-11 12:55] LABS: Hematocrit 42.2 % (37-47); Hemoglobin 13.5 g/dL (12.0-15.0)
[2021-02-11 13:18] LABS: Creatinine, Serum 0.65 mg/dL (0.55-1.02); EST Glomerular Filtration Rate 96 mL/min (>60); Est Glom Filt Rate - Afr Amer 116 mL/min (>60)
== END ==
PROVIDERS: PCP Family Medicine; Referring Provider Family Medicine; Visit Provider Family Medicine
DX: Z01.818 Encounter for other preprocedural examination (principal)
CPT/HCPCS: 36415; 82565; 85014; 85018

== ENCOUNTER → 2021-08-29 06:48 | Outpatient (CLI) | payer MEDICARE, SELFPAY ==
[2021-08-29 07:38] LABS: AST(SGOT) 21 U/L (15-37); Alanine Aminotransfer ALT/SGPT 29 U/L (13-56); Albumin, Serum 3.4 g/dL (3.2-5.0); Alkaline Phosphatase 54 U/L (45-117); Bilirubin, Direct 0.15 mg/dL (0.00-0.30); Cholesterol 233 mg/dL (200); Globulin 3.6 g/dL (2.2-4.2); High Density Lipoprotein 89 mg/dL; Triglycerides 39 mg/dL; Very Low Density Lipoprotein 8 mg/dL (5-40)
== END ==
PROVIDERS: PCP Family Medicine; Referring Provider Internal Medicine Cardiovascular Disease; Visit Provider Internal Medicine Cardiovascular Disease
DX: E78.5 Hyperlipidemia, unspecified (principal)
CPT/HCPCS: 36415; 80061; 80076

== ENCOUNTER 2022-01-29 16:02 | Outpatient (CLI) | payer MEDICARE, SELFPAY ==
[2022-01-29 17:01] LABS: BNP,B-Type NATRIURETIC PEPTIDE 11.7 pg/mL (0-100)
== END 2022-01-29 23:59 | disposition home or self-care (01) ==
LOC: LAB 16:03
PROVIDERS: PCP Family Medicine; Visit Provider Internal Medicine Cardiovascular Disease
DX: R06.02 Shortness of breath (principal)
CPT/HCPCS: 36415; 83880

== ENCOUNTER → 2022-05-12 | Outpatient (CLI) | payer MEDICARE, SELFPAY ==
--- NOTE | 2022-05-12 10:25 | RAD_ITS ---
EXAM: XR RIGHT FOOT COMPLETE, 3 OR MORE VIEWS CLINICAL INDICATION: ARTHRITIS TECHNIQUE: Frontal, lateral and oblique views of the right foot. This report was created using [employer] report generation technology. COMPARISON: None. FINDINGS: BONES/JOINTS: Unremarkable. No acute fracture. No subluxation. Normal alignment. Preservation of the joint space. No sclerotic or destructive changes observed. SOFT TISSUES: Unremarkable. No soft tissue swelling or gas. No radiopaque foreign body. OTHER FINDINGS: Images were obtained with weightbearing. RAD/Foot min 3 Views IMPRESSION: No acute findings in the right foot. Electronically Signed: Alejo Mclain MD at 2:58 EDT ,
[2022-05-12 12:30] LABS: Erythrocyte Sedimentation Rate 6 mm/hr (0-30)
[2022-05-12 13:49] LABS: CRP < 2.90 mg/L (0.0-3.0); Rheumatoid Factor < 10.0 IU/mL (<15); Uric Acid 3.1 mg/dL (2.6-6.0)
[2022-05-21 16:27] LABS: HLA B27 Negative (.)
== END | disposition home or self-care (01) ==
LOC: MTLAB 10:21
PROVIDERS: PCP Family Medicine; Referring Provider Podiatrist; Visit Provider Podiatrist
DX: M06.9 Rheumatoid arthritis, unspecified (principal)
CPT/HCPCS: 36415; 73630; 81374; 84550; 85652; 86038; 86140; 86431

== ENCOUNTER 2022-08-30 19:50 | Observation (INO) | payer MEDICARE, SELFPAY ==
[2022-08-30] VITALS (10 sets, daily range): BP systolic 130–178; BP diastolic 65–78; PULSE 60–78; RESP 14–18; TEMP 35.9–36.6; O2SAT 96–99; BMI 25.7
--- NOTE | 2022-08-30 20:01 | ED.RN ---
PT BROUGHT BACK FROM TRIAGE BY THIS RN, PLACED INTO GOWN, PROCESS PUMPER APPLIED. DR. OCHOA INFORMED OF PT NEURO SX AND SX RESOLUTION. REPORTS NO STROKE ALERT AT THIS TIME AND THAT PT WILL BE SEEN SHORTLY.
--- NOTE | 2022-08-30 20:10 | ED.RN ---
per pt this AM around 0915 she has trouble reading the [facility] at [facility] which is not normal for her.
--- NOTE | 2022-08-30 20:21 | CT_ITS ---
We are attempting to reach an attending provider to discuss findings. An addendum with communication details will be sent when the communication is complete. EXAM: CT HEAD WITHOUT INTRAVENOUS CONTRAST CLINICAL INDICATION: Neuro deficit, acute, stroke suspected TECHNIQUE: Multiple axial images were obtained of the head without intravenous contrast. This CT exam was performed using one or more of the following dose reduction techniques: automated exposure control, adjustment of the mA and/or kV according to patient size, and/or use of iterative reconstruction technique. This report was created using [employer] report [employer] technology. CONTRAST: IV 100mL Isovue-370 COMPARISON: None. FINDINGS: BRAIN AND EXTRA-AXIAL SPACES: Unremarkable. No intra- or extra-axial hemorrhage. No evidence of acute infarct. No intracranial mass or mass effect. There is preservation of the villalobos/white matter interface. Posterior fossa structures are unremarkable. Ventricles are appropriate for age. No hydrocephalus. Basal cisterns are patent. BONES/JOINTS: Unremarkable. No discrete lytic or blastic abnormalities. VASCULATURE: There are calcifications around the cavernous carotid arteries. This is consistent for atherosclerotic disease. SINUSES: There is sinus disease. MASTOID AIR CELLS: Unremarkable. Clear. ORBITS: Visualized globes, extraocular muscles, optic nerves and retrobulbar fat appear unremarkable. Aspects 10 CT/STROKE Brain/Head without Cont IMPRESSION: There is sinus disease. Electronically Signed: Odilon Holcomb MD at 20:54 EST ,
--- NOTE | 2022-08-30 20:21 | EKG12_ITS ---
Test Reason : NEURO Blood Pressure : / mmHG Vent. Rate : 058 BPM Atrial Rate : 058 BPM P-R Int : 236 ms QRS Dur : 118 ms QT Int : 432 ms P-R-T Axes : 051 -36 043 degrees QTc Int : 424 ms Sinus bradycardia with 1st degree A-V block Left axis deviation Incomplete right bundle branch block Minimal voltage criteria for LVH, may be normal variant ( [place] product ) Possible Anterior infarct , age undetermined Abnormal ECG Confirmed by ZAK CANTU, RADHA ([id number]), editor school photograph CURTIS COHEN ([id number]) on 09/01/2022 11:21:38 AM Referred By: Confirmed By:RADHA CRESPO MD
--- NOTE | 2022-08-30 20:22 | CT_ITS ---
We are attempting to reach an attending provider to discuss findings. An addendum with communication details will be sent when the communication is complete. EXAM: CT ANGIOGRAPHY HEAD AND NECK WITH INTRAVENOUS CONTRAST CLINICAL INDICATION: Neuro deficit, acute, stroke suspected TECHNIQUE: [place] [facility] [place]/head and neck CT angiography protocol performed with intravenous contrast. This CT exam was performed using one or more of the following dose reduction techniques: automated exposure control, adjustment of the mA and/or kV according to patient size, and/or use of iterative reconstruction technique. This report was created using [employer] report generation technology. MIP reconstructed images were created and reviewed. CONTRAST: IV 100mL Isovue-370 RADIATION DOSE: CTDIvol = 25.39 mGy, DLP = 655.07 mGy-cm COMPARISON: None. FINDINGS: HEAD: RIGHT ANTERIOR CEREBRAL ARTERY: Unremarkable. No significant stenosis at the visualized segments. Anterior communicating artery is present. No aneurysm. RIGHT MIDDLE CEREBRAL ARTERY: Unremarkable. No significant stenosis at the visualized segments. No aneurysm. RIGHT POSTERIOR CEREBRAL ARTERY: Unremarkable. No occlusion or significant stenosis. No aneurysm. RIGHT INTRACRANIAL INTERNAL CAROTID ARTERY: Unremarkable. No significant stenosis. No dissection or occlusion. RIGHT INTRACRANIAL VERTEBRAL ARTERY: Unremarkable. No significant stenosis. No dissection or occlusion. LEFT ANTERIOR CEREBRAL ARTERY: Unremarkable. No significant stenosis at the visualized segments. No aneurysm. LEFT MIDDLE CEREBRAL ARTERY: Unremarkable. No significant stenosis at the visualized segments. No aneurysm. LEFT POSTERIOR CEREBRAL ARTERY: Unremarkable. No occlusion or significant stenosis. No aneurysm. LEFT INTRACRANIAL INTERNAL CAROTID ARTERY: Unremarkable. No significant stenosis. No dissection or occlusion. LEFT INTRACRANIAL VERTEBRAL ARTERY: Unremarkable. No significant stenosis. No dissection or occlusion. BASILAR ARTERY: Unremarkable. No significant stenosis. No aneurysm. OTHER VASCULATURE: There is calcified plaque formation of the right cavernous carotid artery, with a mild stenosis (less than 50%). ALL ABOVE CRITERIA BY NASCET. There are no acute findings of the right and left internal carotid artery. ALL ABOVE CRITERIA BY NASCET. NECK: RIGHT COMMON CAROTID ARTERY: Unremarkable. No significant stenosis. No dissection or occlusion. RIGHT EXTRACRANIAL INTERNAL CAROTID ARTERY: Unremarkable. No significant stenosis. No dissection or occlusion. RIGHT EXTERNAL CAROTID ARTERY: Unremarkable. No occlusion. RIGHT EXTRACRANIAL VERTEBRAL ARTERY: Unremarkable. No significant stenosis. No dissection or occlusion. LEFT COMMON CAROTID ARTERY: Unremarkable. No significant stenosis. No dissection or occlusion. LEFT EXTRACRANIAL INTERNAL CAROTID ARTERY: Unremarkable. No significant stenosis. No dissection or occlusion. LEFT EXTERNAL CAROTID ARTERY: Unremarkable. No occlusion. LEFT EXTRACRANIAL VERTEBRAL ARTERY: Unremarkable. No significant stenosis. No dissection or occlusion. GREAT VESSELS OF AORTIC ARCH: There is calcified plaque formation of the left cavernous carotid artery, with a mild stenosis (less than 50%). ALL ABOVE CRITERIA BY NASCET. LUNG APICES: Unremarkable as visualized. HEAD and NECK: BONES/JOINTS: There are degenerative findings of the cervical spine. No discrete lytic or blastic abnormalities. SOFT TISSUES: Unremarkable. CAROTID STENOSIS REFERENCE USING NASCET CRITERIA: % ICA stenosis = (1 - narrowest ICA diameter/diameter of distal cervical ICA) x 100. Mild - <50% stenosis. Moderate - 50-69% stenosis. Severe - 70-94% stenosis. Near occlusion - 95-99% stenosis. Occluded - 100% stenosis. CT/STROKE CTA Head AND Neck W/Con IMPRESSION: 1. There is calcified plaque formation of the right cavernous carotid artery, with a mild stenosis (less than 50%). ALL ABOVE CRITERIA BY NASCET. 2. There is calcified plaque formation of the left cavernous carotid artery, with a mild stenosis (less than 50%). ALL ABOVE CRITERIA BY NASCET. 3. There are no acute findings of the right and left internal carotid artery. ALL ABOVE CRITERIA BY NASCET. Electronically Signed: Odilon Holcomb MD at 21:09 EST ,
--- NOTE | 2022-08-30 20:23 | ED.VIS.STROK ---
HPI History of Present Illness Chief Complaint: Neuro S/Sx Detail of Chief Complaint: Concern for stroke with speech difficulty Informant: patient Narrative Narrative: Patient presents the emergency department concerned that she may have had a TIA. Patient states that she was speaking on the phone with a friend when she could not find words to speak that she wanted to say. Symptoms lasted about 15 minutes. Patient subsequently afterwards developed a headache. Patient states that she does have history of migraines and can have some ocular aura and she feels like she is getting some aura currently. Her headache is currently minimal. Patient denies any focal weakness currently. She denies speech difficulty. Patient has prior history of TIA. Patient has had a prior aortic valve replacement via TAVR. Patient denies recent illness. Patient not on anticoagulation other than aspirin. 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/30/20) Hyperlipidemia Left carotid bruit Lymphedema of right arm Macular degeneration Non-rheumatic aortic stenosis Obstructive sleep apnea Right bundle branch block (RBBB) Home Medications ascorbate calcium (vitamin C) 500 mg tablet 500 mg PO DAILY 08/27/20 [History Last Taken Unknown] omega-3 fatty acids 1,000 mg capsule 1,000 mg PO DAILY 08/27/20 [History Last Taken Unknown] turmeric 400 mg capsule mg PO 08/27/20 [History Last Taken Unknown] Breast prostesis (right) #1 ea 05/06/21 [Rx Last Taken Unknown] Mastectomy Bra #2 ea 05/06/21 [Rx Last Taken Unknown] aspirin 81 mg tablet,delayed release (Adult Low Dose Aspirin) 81 mg PO .EVERY 4TH DAY 01/29/22 [History Last Taken Unknown] cholecalciferol (vitamin D3) 25 mcg (1,000 unit) capsule 50 mcg PO DAILY 01/29/22 [History Last Taken Unknown] vitamin B complex 1 tab PO DAILY 01/29/22 [History Last Taken Unknown] Allergy/AdvReac Type Severity Reaction Status Date / Time Penicillins Allergy Unknown Unknown Verified 08/30/22 19:54 adhesive tape Allergy Unknown Verified 08/30/22 19:54 zinc Allergy Vomiting Verified 08/30/22 19:54 clopidogrel [From Plavix] AdvReac Intermediate Bruising, Verified 08/30/22 19:54 myalgias, joint pain Family History Mother Heart disease Surgical History H/O cataract extraction History of cataract surgery History of corneal transplant History of left heart catheterization History of mastectomy History of nasal septoplasty Social History Smoking Status: Never smoker ROS ROS ED Review of Systems ROS Unobtainable: other Constitutional Constitutional ED: Reports lethargy; Denies chills, fever(s), sweats or weight loss Eyes Eyes: Denies blurry vision, change in vision or diplopia ENT ENT ED: Denies rhinorrhea or sore throat Cardiovascular Cardiovascular: Denies chest pain, orthopnea or racing heartbeat Respiratory/Chest Respiratory/Chest: Denies cough, dyspnea, dyspnea on exertion, orthopnea or sputum Gastrointestinal Gastrointestinal: Denies abdominal pain, diarrhea, nausea or vomiting Genitourinary Genitourinary ED: Denies dysuria, hematuria or urinary frequency Musculoskeletal Musculoskeletal: Denies arthralgias, back pain, myalgias or neck pain Integumentary Denies abscess, Abrasions or rash Neurologic Neurologic: Reports headache(s) and other Details: Expressive aphasia ; Denies weakness Psychiatric Psychiatric: Denies anxiety, depression or suicidal thoughts Endocrine Endocrinology: Denies polydipsia, polyphagia or polyuria Hematologic/Lymphatic Hematologic/Lymphatic: Denies easy bleeding, easy bruising or lymphadenopathy Allergic/Immunologic Allergic/Immunologic ED: Denies mouth swelling, tongue swelling or urticaria EXAM Physical Exam Const Vital Signs: 08/30/22 19:51 08/30/22 20:21 08/30/22 20:29 Temperature 97.8 F Temperature Source Temporal Pulse Rate 63 69 Respiratory Rate 16 15 Blood Pressure 178/78 H 161/76 H Blood Pressure Mean 111 104 Pulse Ox 99 98 97 Oxygen Delivery Method Room Air Room Air Room Air 08/30/22 20:51 Temperature 96.6 F L Temperature Source Temporal Pulse Rate 64 Respiratory Rate 18 Blood Pressure 159/68 H Blood Pressure Mean 98 Pulse Ox 97 Oxygen Delivery Method Room Air Positive well nourished and well developed General Appearance ED: well developed and NAD HEENT Reports TM's clear and moist mucous membranes normocephalic and atraumatic; Negative for trauma or tenderness Tympanic Membrane ED: Yes TM's clear Eyes PERRL and EOMs intact bilaterally General Eye ED: Negative for pale conjunctiva or scleral icterus Neck no lymphadenopathy, supple and no JVD General: Negative for tenderness Chest Wall inspection of chest normal and palpation of chest normal Chest: Negative for tenderness Resp normal respiratory effort and clear to auscultation bilaterally Effort and Inspection: Negative for respiratory distress or pain with movement Auscultation: Negative for rhonchi, wheezes or diminished lung sounds Cardio regular rate, regular rhythm, S1 normal heart sound, S2 normal heart sound and no murmurs Peripheral Pulses: pulses 2+ throughout GI normal to inspection, nondistended, normoactive bowel sounds, soft to palpation, non-tender, non-distended and no masses Back/Spine no CVA tenderness and no thoracic nor lumbar tenderness Extremity normal to inspection General Extremety ED: Negative for edema General Extremity: Negative for edema Neuro oriented x3, CN's II-XII intact bilaterally, no sensory deficits noted and gait normal Neuro Narrative: NIH stroke scale is 0. Finger-nose and heel ocasio testing within normal limits, negative Romberg, negative pronator drift, fundi benign Sensorium / Orientation: awake, alert, oriented to person, oriented to place and oriented to time Motor Exam: strength 5/5 throughout and strength abnormal Psych mental status grossly normal Skin no rashes or lesions noted and no wounds MDM MDM MDM Narrative Medical decision making narrative: IV line established on arrival. CT scan of the brain without contrast was unremarkable and CTA head and neck was negative for large vessel occlusion. Lab work-up unremarkable. Troponin was normal. Case discussed with hospitalist will evaluate patient for admission for TIA. In the differential would be a complex migraine. Lab Data Attestation: I reviewed the patient's lab results. Labs: Laboratory Results - last 24 hr 08/30/22 08/30/22 08/30/22 20:08 20:12 20:12 WBC 5.4 RBC 4.36 Hgb 13.0 Hct 40.2 MCV 92.2 MCH 29.8 MCHC 32.3 RDW Std Deviation 45.0 H RDW Coeff of Junior 13.3 Plt Count 243 MPV 10.8 Immature Gran % (Auto) 0.200 Neut % (Auto) 54.8 Lymph % (Auto) 32.4 [place] % (Auto) 8.3 Eos % (Auto) 3.7 Baso % (Auto) 0.6 Absolute Neuts (auto) 3.0 Absolute Lymphs (auto) 1.75 Nucleated RBC % 0 PT 12.5 INR 1.0 APTT 25.5 Sodium Potassium Chloride Carbon Dioxide Anion Gap BUN Creatinine Estim Creat Clear Calc Est GFR (MDRD) Af Amer Est GFR (MDRD) Non-Af BUN/Creatinine Ratio Glucose Calcium Magnesium Troponin I High Sens POC Glucose 97 08/30/22 08/30/22 20:12 20:12 WBC RBC Hgb Hct MCV MCH MCHC RDW Std Deviation RDW Coeff of Junior Plt Count MPV Immature Gran % (Auto) Neut % (Auto) Lymph % (Auto) [place] % (Auto) Eos % (Auto) Baso % (Auto) Absolute Neuts (auto) Absolute Lymphs (auto) Nucleated RBC % PT INR APTT Sodium 142 Potassium 4.2 Chloride 107 Carbon Dioxide 30.0 Anion Gap 5 BUN 17 Creatinine 0.62 Estim Creat Clear Calc 45.76 Est GFR (MDRD) Af Amer 120 Est GFR (MDRD) Non-Af 100 BUN/Creatinine Ratio 27.2 H Glucose 104 Calcium 8.8 Magnesium 2.3 Troponin I High Sens 7 POC Glucose Radiography Diagnostic Testing: Clinical Impression(s) from Imaging Studies Brain CT 08/30/22 20:21 IMPRESSION: There is sinus disease. Electronically Signed: Odilon Holcomb MD at 20:54 EST , ADDENDUM: 08/30/222102 IMPRESSION: There is sinus disease. N.B. : The above Results were Read Back by Odilon Holcomb MD to MD tasia, and understanding confirmed on 08/30/2022 20:56:57 (ET). Electronically Signed: Odilon Holcomb MD at 20:54 EST , Head/Neck CTA 08/30/22 20:22 IMPRESSION: 1. There is calcified plaque formation of the right cavernous carotid artery, with a mild stenosis (less than 50%). ALL ABOVE CRITERIA BY NASCET. 2. There is calcified plaque formation of the left cavernous carotid artery, with a mild stenosis (less than 50%). ALL ABOVE CRITERIA BY NASCET. 3. There are no acute findings of the right and left internal carotid artery. ALL ABOVE CRITERIA BY NASCET. Electronically Signed: Odilon Holcomb MD at 21:09 EST , ADDENDUM: 08/30/227 IMPRESSION: 1. There is calcified plaque formation of the right cavernous carotid artery, with a mild stenosis (less than 50%). ALL ABOVE CRITERIA BY NASCET. 2. There is calcified plaque formation of the left cavernous carotid artery, with a mild stenosis (less than 50%). ALL ABOVE CRITERIA BY NASCET. 3. There are no acute findings of the right and left internal carotid artery. ALL ABOVE CRITERIA BY NASCET. N.B. : The above Results were Read Back by Odilon Holcomb MD to Molly Bone MD, and understanding confirmed on 08/30/2022 21:10:59 (ET). Electronically Signed: Odilon Holcomb MD at 21:09 EST , Chest X-Ray 08/30/22 20:48 IMPRESSION: There are no acute findings. N.B. : The above Results were Read Back by Odilon Holcomb MD to Molly Bone MD, and understanding confirmed on 08/30/2022 21:09:07 (ET). Electronically Signed: Odilon Holcomb MD at 21:10 EST , ADDENDUM: 08/30/222116 IMPRESSION: There are no acute findings. N.B. : The above Results were Read Back by Odilon Holcomb MD to Molly Bone MD, and understanding confirmed on 08/30/2022 21:09:07 (ET). Electronically Signed: Odilon Holcomb MD at 21:10 EST Reading Location ID and State: [facility] / [place] , Service support , 1 view chest x-ray obtained interpreted by myself no acute disease process. Radiology in agreement. EKG Initial EKG: Attestation: I personally reviewed and interpreted this EKG as follows: Comments: Sinus rhythm with a ventricular rate of 58 bpm with incomplete right bundle branch block Discharge Plan Dx/Rx/DC Orders Clinical Impression: Brain TIA, Hx of hyperlipidemia, History of aortic valve replacement Disposition Disposition: Acute Care Hospital [facility]
[2022-08-30] MEDS: 0.9% Normal Saline 1,000 ML 100 ML IV ×2 (20:28→23:00)
[2022-08-30 20:30] LABS: Bedside Glucose 97 mg/dL (74-106)
[2022-08-30 20:35] LABS: Absolute Lymphocyte Count 1.75 X10^3/uL (0.83-4.51); Basophil# 0.03 X10^3/uL; Basophil% 0.6 % (0-1); Eosinophils% 3.7 % (0-5); Hematocrit 40.2 % (37-47); Lymphocyte # 1.75 X10^3/ul (0.83-4.51); Lymphocyte % 32.4 % (19-41); Mean Corp Hgb Conc 32.3 g/dL (32-36); Mean Corpuscular Hgb 29.8 pg (27.0-32.0); Mean Corpuscular Volume 92.2 fL (81-99); Mean Platelet Vol. 10.8 fl (6.2-12.0); Monocyte# 0.45 X10^3/uL; Monocyte% 8.3 % (0-10); NRBC Flagged by Analyzer 0 % (0-5); Neutrophil # 2.96 X10^3/uL (2.7-7.7); Neutrophil % 54.8 % (47-70); Platelet Count 243 K/mm3 (150-450); RBC Distribution Width CV 13.3 % (11.6-14.6); Red Blood Count 4.36 M/mm3 (4.2-5.4); White Blood Count 5.4 K/mm3 (4.4-11.0)
[2022-08-30 20:44] LABS: Partial Thromboplast Time 25.5 Seconds (24.1-36.2); Prothrombin Time (Protime)PT. 12.5 SECONDS (11.7-14.9)
--- NOTE | 2022-08-30 20:48 | RAD_ITS ---
STUDY: X-RAY CHEST REASON FOR EXAM: Female, 72 years old. Neuro deficit, acute, stroke suspected TECHNIQUE: XR Chest 1 View COMPARISON: 09.11.20 FINDINGS: There is atherosclerotic calcification of the aortic arch with tortuosity. There are diffuse degenerative changes of the visualized thoracic spine. There is degenerative osteoarthritis of the bilateral shoulders. There are multiple metallic clips in the right axilla. This is consistent for a prior axillary dissection. There are mastectomy changes noted. Normal size heart. Normal mediastinum and david. Normal visualized pulmonary arteries. There is no demonstrated abnormality of the visualized soft tissue structures of the upper abdomen. RAD/Chest 1 View IMPRESSION: There are no acute findings. N.B. : The above Results were Read Back by Odilon Holcomb MD to Molly Bone MD, and understanding confirmed on 08/30/2022 21:09:07 (ET). Electronically Signed: Odilon Holcomb MD at 21:10 EST ,
[2022-08-30 20:57] LABS: Anion Gap 5 (5-15); BUN 17 mg/dL (7-18); BUN/Creat Ratio 27.2 RATIO (10-20); Calcium,Total 8.8 mg/dL (8.5-10.1); Chloride 107 mmol/L (98-107); Creatinine, Serum 0.62 mg/dL (0.55-1.02); EST Glomerular Filtration Rate 100 mL/min (>60); Est Glom Filt Rate - Afr Amer 120 mL/min (>60); Estimated Creatinine Clearance 45.76 ml/min; Glucose 104 mg/dL (74-106); Potassium 4.2 mmol/L (3.5-5.1); Sodium Level 142 mmol/L (136-145); Troponin-I HS 7 pg/mL (3.0-54.0)
--- NOTE | 2022-08-30 21:05 | HP.PCM.HOS_ITS ---
HPI - General General Date of Admission: 08/30/22 Date of Service: 08/30/22 Chief Complaint: Transient aphasia, headache. HPI Narrative The patient is a 72 y/o F w/ PMHx: Hx prior migraines, CARLOS, Valvular Heart Disease s/p TAVR w/ Hx bicuspid aortic valve, Hx R sided Breast CA s/p mastectomy w/ chronic RUE associated lymphedema, HLD who presents to the [facility] ED on 08/30/22 with history of onset expressive aphasia approximately 1 hour prior to ED arrival with symptoms resolving after approximately 10 minutes with following this onset of a mild headache behind her R eye, described as aching/dull, 3-4/10 in severity with mild aura with noted wavy lines across her vision with since then upon hospitalist evaluation resolution. She does report migraine history but reports she has never had aphasia/complex migraine prior and when this occurred initially she denied any headache. Work-up in the ED included T97.8, heart rate 63, BP 178/78, respiratory rate 16, 99% on room air, CBC with WC 5.4, hemoglobin 13, platelet 243 without marked shift, unremarkable coags, BMP unremarkable, troponin 7, CT of the brain with chronic sinus changes otherwise no acute intracranial findings, chest x-ray with no acute cardio pulmonary findings, CTA head and neck no acute findings the right and left internal carotid artery, bilateral right and left cavernous carotid artery mild stenosis less than 50%, EKG w/ SB with incomplete R BBB. In the ED patient ministered normal saline. [facility] Medical History Amaurosis fugax Arthritis Bicuspid aortic valve Central sleep apnea History of transcatheter aortic valve replacement (TAVR) (10/30/20) Hyperlipidemia Left carotid bruit Lymphedema of right arm Macular degeneration Non-rheumatic aortic stenosis Obstructive sleep apnea Right bundle branch block (RBBB) Home Medications ascorbate calcium (vitamin C) 500 mg tablet 500 mg PO DAILY 08/27/20 [History Last Taken Unknown] omega-3 fatty acids 1,000 mg capsule 1,000 mg PO DAILY 08/27/20 [History Last Taken Unknown] turmeric 400 mg capsule mg PO 08/27/20 [History Last Taken Unknown] Breast prostesis (right) #1 ea 05/06/21 [Rx Last Taken Unknown] Mastectomy Bra #2 ea 05/06/21 [Rx Last Taken Unknown] aspirin 81 mg tablet,delayed release (Adult Low Dose Aspirin) 81 mg PO .EVERY 4TH DAY 01/29/22 [History Last Taken Unknown] cholecalciferol (vitamin D3) 25 mcg (1,000 unit) capsule 50 mcg PO DAILY 01/29/22 [History Last Taken Unknown] vitamin B complex 1 tab PO DAILY 01/29/22 [History Last Taken Unknown] Allergy/AdvReac Type Severity Reaction Status Date / Time Penicillins Allergy Unknown Unknown Verified 08/30/22 19:54 adhesive tape Allergy Unknown Verified 08/30/22 19:54 zinc Allergy Vomiting Verified 08/30/22 19:54 clopidogrel [From Plavix] AdvReac Intermediate Bruising, Verified 08/30/22 19:54 myalgias, joint pain Family History (Updated 08/30/22 @ 23:[address] Rae Martinez MD) Mother Heart disease Father Dementia Surgical History H/O cataract extraction History of cataract surgery History of corneal transplant History of left heart catheterization History of mastectomy History of nasal septoplasty Social History (Updated 08/30/22 @ 23:[address] Rae Martinez MD) Smoking Status: Never smoker alcohol intake: never substance use type: does not use ROS ROS Narrative Admission Review of Systems: CONSTITUTIONAL: No weight loss, fever, chills, + weakness or fatigue. HEENT: + Headache, aura with R eye vision changes with wavy lines. Eyes: No double vision or yellow sclerae. Ears, Nose, Throat: No hearing loss, sneezing, congestion, runny nose or sore throat. SKIN: No rash or itching, lesions, wounds. CARDIOVASCULAR: No chest pain, chest pressure or chest discomfort, palpitations, edema, orthopnea, syncopal events. RESPIRATORY: No shortness of breath, cough or sputum, wheezing, hemoptysis. GASTROINTESTINAL: No anorexia, nausea, vomiting or diarrhea, abdominal pain, melena, BRBPR. GENITOURINARY: No dysuria, frequency, urgency or retention. NEUROLOGICAL: + Transient expression aphasia, headache as noted with aura. No dizziness, syncope, paralysis, ataxia, numbness or tingling in the extremities, focal weakness, change in bowel or bladder control, seizure. MUSCULOSKELETAL: No muscle, back pain, joint pain or stiffness. HEMATOLOGIC: No anemia, bleeding or bruising. LYMPHATICS: No enlarged nodes. No history of splenectomy. PSYCHIATRIC: No history of depression or anxiety. ENDOCRINOLOGIC: No reports of sweating, cold or heat intolerance. No polyuria or polydipsia. ALLERGIES: No history of asthma, hives, eczema or rhinitis. Vital Signs Vital Signs Vital Signs: 08/30/22 19:51 08/30/22 20:21 08/30/22 20:29 Temperature 97.8 F Temperature Source Temporal Pulse Rate 63 69 Respiratory Rate 16 15 Blood Pressure 178/78 H 161/76 H Blood Pressure Mean 111 104 Pulse Ox 99 98 97 Oxygen Delivery Method Room Air Room Air Room Air Weight Weight: 155 lb 0.006 oz Body Mass Index (BMI) 25.7 Physical Exam Narrative Physical Examination: General: Awake, alert, oriented x 3 and cooperative, seated upright in the ED bed in no apparent distress, completely resolved symptoms. Skin: Normal color, normal turgor, no icterus, no cyanosis. HEENT: AT/NC, EOMI, PERRLA, MMM, no carotid bruits or JVD noted. Lungs: CTA bilaterally, moderate effort, mild decrease BL bases, no rales, ronchi or wheezing. Heart: Mildly bradycardic with regular rhythm; no gallop, rub audible, + SM. Abdomen: Soft, overweight, NTTP, ND, mildly hyperactive BS, no HSM. Extremities: No cyanosis, no clubbing, s/p mastectomy with chronic RUE lymp hedema. Neurological: Patient awake, alert, oriented as noted, cognitive function intact; pupils equally reactive to light and accommodation, cranial nerves II- XII grossly normal, moving all 4 extremities, no focal deficits, strength preserved, no further expressive aphasia, FTN/HTS appropriate, sensation intact, equivocal babinski. Psychiatric: Affect appears normal, no acute evidence of depressive or anxiety feelings. Results Lab / Micro Data Result Diagrams: 08/30/22 20:12 08/30/22 20:12 Labs: Laboratory Results - last 24 hr 08/30/22 20:08: POC Glucose 97 08/30/22 20:12: WBC 5.4, RBC 4.36, Hgb 13.0, Hct 40.2, MCV 92.2, MCH 29.8, MCHC 32.3, RDW Std Deviation 45.0 H, RDW Coeff of Junior 13.3, Plt Count 243, MPV 10.8, Immature Gran % (Auto) 0.200, Neut % (Auto) 54.8, Lymph % (Auto) 32.4, [place] % (Auto) 8.3, Eos % (Auto) 3.7, Baso % (Auto) 0.6, Absolute Neuts (auto) 3.0, Absolute Lymphs (auto) 1.75, Nucleated RBC % 0 08/30/22 20:12: PT 12.5, INR 1.0, APTT 25.5 08/30/22 20:12: Sodium 142, Potassium 4.2, Chloride 107, Carbon Dioxide 30.0, Anion Gap 5, BUN 17, Creatinine 0.62, Estim Creat Clear Calc 45.76, Est GFR (MDRD) Af Amer 120, Est GFR (MDRD) Non-Af 100, BUN/Creatinine Ratio 27.2 H, Glucose 104, Calcium 8.8, Troponin I High Sens [address] 08/30/22 20:21 IMPRESSION: There is sinus disease. Electronically Signed: Odilon Holcomb MD at 20:54 EST , ADDENDUM: 08/30/222102 IMPRESSION: There is sinus disease. N.B. : The above Results were Read Back by Odilon Holcomb MD to MD tasia, and understanding confirmed on 08/30/2022 20:56:57 (ET). Electronically Signed: Odilon oHlcomb MD at 20:54 EST , Assessment & Plan Assessment/Plan (1) Brain TIA: PLAN: Plan The patient is a 72 y/o F w/ PMHx: Hx prior migraines, CARLSO, Valvular Heart Dise ase s/p TAVR w/ Hx bicuspid aortic valve, Hx R sided Breast CA s/p mastectomy w/ chronic RUE associated lymphedema, HLD who presents to the [facility] ED on 08/30/22 with history of onset expressive aphasia approximately 1 hour prior to ED arrival with symptoms resolving after approximately 10 minutes with following this onset of a mild headache behind her R eye, described as aching/dull, 3-4/10 in severity with mild aura with noted wavy lines across her vision with since then upon hospitalist evaluation resolution. #1. Transient aphasia, headache, vision changes secondary to possible TIA/CVA versus complex migraines: Will admit to PCU, will obtain MRI Brain, will obtain ECHO with bubble study specifically, PT/OT/Speech/Nutrition evaluation per protocol. Will allow permissive HTN, maintain on asa baby dose only given history of significant bleeding issues with high-dose, add at least moderate dose statin w/ AM FLP, fall and aspiration precautions, TSH, magnesium, FLP, hemoglobin A1c requested. Once further imaging and work-up obtained may consider follow-up neurology assessment. If MRI is unremarkable then certainly there is a possibility this was a complex migraine and if ongoing symptoms could certainly alter treatment. #2. Elevated BP with hypertensive diagnosis: BP elevated upon ED presentation with no prior marked history of hypertension, given acute presentation #1 we chava l maintain permissive hypertension with as needed agents per stroke protocol. #3. Valvular heart disease: Patient with history of bicuspid aortic valve status post TAVR, 10/30/2021 echocardiogram with aortic valve noted to be well sealed, functioning normally 26 mm Samuels CPN 3 ultra bioprosthetic valve with no regurgitation, no perivalvular regurgitation, peak systolic velocity 1.4 m/sec, mean systolic gradient 5 mmHg, average LV global longitudinal strain -20, cavity size normal, wall thickness mildly increased, LV concentric remodeling, systolic function normal, EF 65%, no regional wall motion abnormalities, LV diastolic function parameters normal, RV cavity size normal, systolic function normal, compared to 11/27/2020 echocardiogram no marked changes. #4. History of right-sided breast cancer, unclear type: Patient status postmastectomy with chronic right upper extremity associated lymphedema, considered in remission. #5. Chronic right upper extremity lymphedema: Following surgical intervention for right-sided breast cancer with mastectomy and presumed lymph node dissection, encourage continued sleeve, avoid any lab draws or BP assessments in this arm #6. Hyperlipidemia: Not on any regimen, given acute presentation adding statin, FLP in AM. #7. CARLOS: CPAP nightly. #8. DVT prophylaxis: SCDs, Lovenox. #9. CODE status: Patient DIAMANTE is her friend Stacey Warren and living will is currently in place. Discussed CODE status at length including difference between FULL code, DNR-CCA and DNR-CC status. Following discussions about the differences in these status, requested DNR-CCA, no intubation status. Advanced Care Planning Face to Face Time: 16 minutes. Charges/Coding Visit Charges OBSV E&M: 52792 Initial observation care L3 Procedures Hospitalists Procedures: 16636 Advncd Care Plan 30 Min
[2022-08-30 22:29] LABS: Magnesium 2.3 mg/dL (1.6-2.6)
--- NOTE | 2022-08-30 23:22 | ECHOD_ITS ---
Reason For Study: TIA/CVA Procedure This was a 2D Doppler, Color Flow transthoracic echocardiogram. Exam performed portable in patient room. Left Ventricle Normal LV size. Left ventricular systolic function is normal. The estimated ejection fraction is 55 %. Stage 1 diastolic dysfunction. No regional wall motion abnormalities noted. Right Ventricle Normal RV size. Normal systolic function. Atria Normal left atrium. Normal right atrium. Mitral Valve Normal mitral valve. Trivial eccentric mitral valve insufficiency. Tricuspid Valve Normal tricuspid valve. Mild tricuspid valve insufficiency. Pulmonary artery systolic pressure is 26 mmHg. Aortic Valve Peak aortic valve gradient 11 mmHg. Mean aortic valve gradient 5.5 mmHg. Stable appearing bioprosthetic aortic valve apparatus. Pulmonic Valve The pulmonic valve is not well visualized. Great Vessels Normal aortic root. The pulmonary artery is normal size. Inferior vena cava collapse with respiration. Pericardium/Pleural No pericardial effusion. Medication Negative bubble study on previous ANGY 09/05. MMode/2D Measurements & Calculations LVIDd: 4.2 cm IVSd: 1.1 cm LVOT diam: 2.0 cm LVIDs: 2.1 cm LVPWd: 1.1 cm RVDd: 3.2 cm FS: 50.8 % LVOT area: 3.0 cm2 Ao root diam: 3.6 cm LAV(MOD-bp): 36.3 ml LVAd ap4: 27.8 cm2 LAV(MOD-bp) Indexed: 20.4 ml/m2 LVLd ap4: 7.5 cm LAV(MOD-sp2): 28.2 ml EDV(MOD-sp4): 86.2 ml LAV(MOD-sp4): 39.7 ml EDV(sp4-el): 87.2 ml LVAs ap4: 13.1 cm2 LVLs ap4: 5.9 cm ESV(MOD-sp4): 25.6 ml ESV(sp4-el): 24.8 ml EF(MOD-sp4): 70.3 % EF(sp4-el): 71.5 % LVAd ap2: 26.7 cm2 SV(MOD-sp4): 60.6 ml SV(MOD-sp2): 53.3 ml LVLd ap2: 7.9 cm EDV(MOD-sp2): 74.7 ml EDV(sp2-el): 76.0 ml LVAs ap2: 12.4 cm2 LVLs ap2: 6.3 cm ESV(MOD-sp2): 21.5 ml ESV(sp2-el): 20.9 ml EF(MOD-sp2): 71.3 % SV(sp4-el): 62.4 ml LA dimension(2D): 3.8 cm LA A4 area: 15.5 cm2 RA A4 area: 12.9 cm2 Doppler Measurements & Calculations MV E max juan ramon: 82.3 cm/sec Lat Peak E' Juan Ramon: 8.3 cm/sec Med Peak E' Juan Ramon: 6.0 cm/sec MV A max juan ramon: 107.7 cm/sec E/E' lat: 9.9 E/E' med: 13.8 MV E/A: 0.76 Ao V2 max: 168.8 cm/sec LV V1 max: 120.9 cm/sec SV(LVOT): 82.2 ml Ao max P.5 mmHg LV V1 max P.9 mmHg Ao V2 mean: 108.8 cm/sec LV V1 mean P.3 mmHg Ao mean P.5 mmHg LV V1 mean: 86.1 cm/sec Ao V2 VTI: 34.9 cm LV V1 VTI: 27.3 cm SEGUNDO(I,D): 2.4 cm2 SEGUNDO(V,D): 2.2 cm2 PA V2 max: 80.6 cm/sec TR max juan ramon: 244.5 cm/sec TR max P.9 mmHg ECHO/Echo Complete Interpretation Summary Normal LV size. Left ventricular systolic function is normal. The estimated ejection fraction is 55 %. Stage 1 diastolic dysfunction. Stable appearing bioprosthetic aortic valve apparatus. Ordering Physician: Rae Martinez Referring Physician: Jakub Dial MD Performed By: Desiree Gastelum, ELISSA, RVT
[2022-08-31] VITALS (8 sets, daily range): BP systolic 116–136; BP diastolic 50–58; PULSE 64–78; RESP 16–18; TEMP 36.6–36.9; O2SAT 94–98; BMI 25.7
[2022-08-31 05:22] LABS: Absolute Lymphocyte Count 1.43 X10^3/uL (0.83-4.51); Basophil# 0.05 X10^3/uL; Eosinophil# 0.18 X10^3/uL; Eosinophils% 3.5 % (0-5); Hematocrit 37.2 % (37-47); Lymphocyte # 1.43 X10^3/ul (0.83-4.51); Lymphocyte % 28.1 % (19-41); Mean Corp Hgb Conc 32.3 g/dL (32-36); Mean Corpuscular Hgb 29.8 pg (27.0-32.0); Mean Corpuscular Volume 92.3 fL (81-99); Mean Platelet Vol. 11.1 fl (6.2-12.0); Monocyte# 0.39 X10^3/uL; Monocyte% 7.7 % (0-10); NRBC Flagged by Analyzer 0 % (0-5); Neutrophil # 3.02 X10^3/uL (2.7-7.7); Neutrophil % 59.5 % (47-70); Platelet Count 224 K/mm3 (150-450); RBC Distribution Width CV 13.2 % (11.6-14.6); RBC Distribution Width SD 44.7 fl (35.1-43.9); Red Blood Count 4.03 M/mm3 (4.2-5.4); White Blood Count 5.1 K/mm3 (4.4-11.0)
[2022-08-31 06:05] LABS: AST(SGOT) 16 U/L (15-37); Alanine Aminotransfer ALT/SGPT 24 U/L (13-56); Alkaline Phosphatase 48 U/L (45-117); Anion Gap 6 (5-15); BUN 14 mg/dL (7-18); BUN/Creat Ratio 23.5 RATIO (10-20); Calcium,Total 8.6 mg/dL (8.5-10.1); Chloride 108 mmol/L (98-107); Cholesterol 194 mg/dL (200); EST Glomerular Filtration Rate 105 mL/min (>60); Est Glom Filt Rate - Afr Amer 127 mL/min (>60); Estimated Creatinine Clearance 45.76 ml/min; Glucose 105 mg/dL (74-106); High Density Lipoprotein 77 mg/dL; Potassium 3.9 mmol/L (3.5-5.1); Sodium Level 141 mmol/L (136-145); Thyroid Stim Hormone (TSH) 1.66 uIU/mL (0.358-3.74); Triglycerides 46 mg/dL; Very Low Density Lipoprotein 9 mg/dL (5-40)
[2022-08-31 07:37] LABS: Hemoglobin A1c 5.7 % (3.8-5.6)
[2022-08-31] MEDS: Aspirin E.C. 81 MG Tablet PO (07:48)
--- NOTE | 2022-08-31 09:00 | MRI_ITS ---
EXAM: MR HEAD WITHOUT INTRAVENOUS CONTRAST CLINICAL INDICATION: CVA, BLURRED VISION, EXPRESSIVE APHASIA, HEADACHE ALL RESOLVED NOW TECHNIQUE: Multiplanar and multisequence MR images of the brain were obtained without intravenous contrast. This report was created using [employer] report generation technology. COMPARISON: CT head without contrast and CTA head with contrast 08/30/2022. FINDINGS: BRAIN AND EXTRA-AXIAL SPACES: No diffusion restriction to suspect acute or subacute ischemic infarct. Few small subcortical white matter hyperintensity foci of both cerebral hemispheres are chronic white matter ischemic changes. No midline shift and no mass effects. Normal ventricles and cisterns. No intra- or extra-axial hemorrhage. Posterior fossa structures are unremarkable. No hydrocephalus. SELLA: Unremarkable. Normal sella turcica, pituitary gland, infundibular stalk, optic chiasm and hypothalamus. AUDITORY SYSTEM: Unremarkable. The internal auditory canals are patent. BONES/JOINTS: Unremarkable. No discrete lytic or blastic abnormalities. SINUSES: Mild mucosal thickening in the left maxillary sinus. MASTOID AIR CELLS: Unremarkable as visualized. Clear. ORBITS: Unremarkable as visualized. Both globes, extraocular muscles, optic nerves and retrobulbar fat appear unremarkable. VASCULATURE: Unremarkable as visualized. Normal flow voids in the major intracranial circulation. MRI/Brain without Contrast IMPRESSION: 1. No MR evidence of acute or subacute ischemic infarct or acute intracranial abnormality. 2. Few chronic subcortical white matter ischemic changes in both cerebral hemispheres. Electronically Signed: Dusty Gaines MD at 10:32 EST ,
--- NOTE | 2022-08-31 13:19 | DS.PCM_ITS ---
Providers Date of Admission: 08/30/22 Date of Discharge: 08/31/22 Primary Care Physician: Dr. Jakub Dial MD Reason For Visit: TIA/CVA VS POSSIBLE COMPLEX MIGRAINE Diagnosis Discharge Diagnosis (1) Brain TIA: Status: Acute Code(s): G45.9 - Transient cerebral ischemic attack, unspecified Medications at Discharge Home Medications ascorbate calcium (vitamin C) 500 mg tablet 500 mg PO DAILY 08/27/20 omega-3 fatty acids 1,000 mg capsule 1,000 mg PO DAILY 08/27/20 turmeric 400 mg capsule mg PO 08/27/20 Breast prostesis (right) #1 ea 05/06/21 Mastectomy Bra #2 ea 05/06/21 aspirin 81 mg tablet,delayed release (Adult Low Dose Aspirin) 81 mg PO .EVERY 4TH DAY 01/29/22 cholecalciferol (vitamin D3) 25 mcg (1,000 unit) capsule 50 mcg PO DAILY 01/29/22 vitamin B complex 1 tab PO DAILY 01/29/22 Hospital Course Procedures 2-D Echocardiogram, EKG and - (MRI brain) Summary of Care Provided Minutes Spent on Discharge: 33 Hospital Course: Ms. Kaye is a 72-year-old white female who presented to the emergency department [facility] on 08/30/2022 with a chief complaint of word finding difficulty that started approximate hour prior to arrival to the emergency department. Symptoms resolved approximately 10 minutes after she beg an experience them and she began having the onset of a mild right headache that occurred behind her right eye. She did also note a mild aura with wavy lines across her vision that had resolved at the time of hospitalist evaluation. Patient does indicate she has a history of migraine headaches however she had never had any word finding difficulties associated with them previously. She stated that typically now she experiences a visual aura with no headache however she had severe headache when she was younger. Work-up in the ED included T97.8, heart rate 63, BP 178/78, respiratory rate 16, 99% on room air, CBC with WC 5.4, hemoglobin 13, platelet 243 without marked shift, unremarkable coags, BMP unremarkable, troponin 7, CT of the brain with chronic sinus changes otherwise no acute intracranial findings, chest x-ray with no acute cardio pulmonary findings, CTA head and neck no acute findings the right and left internal carotid artery, bilateral right and left cavernous carotid artery mild stenosis less than 50%, EKG w/ SB with incomplete R BBB.? In the ED patient was administered normal saline. She was admitted the PCU for stroke rule out. NIH is were 0 throughout her entire hospital course. MRI was performed and showed no acute or subacute ischemic infarct or acute intracranial abnormality. She did have a few chronic subcortical white matter ischemic changes in bilateral cerebral hemispheres. Echocardiogram was performed and showed. Her total cholesterol was found to be 194/LDL 108/HDL 77. TSH was 1.66. I did discuss with the patient possibly increasing her aspirin dose to daily while she waits to see neurology however I do suspect that her symptoms are related to complex migraine given her history and headache following the event. She was resistant to this as she states she gets significant bruising on aspirin. I did also recommend follow-up with neurology given the fact that she has chronic migraine issues for ongoing follow-up related to this. She was discharged home in stable condition on 08/31/2022. Discharge diagnoses: Transient word finding difficulty-resolved Complex migraine Central sleep apnea Chronic sinusitis Valvular heart disease status post TAVR History of breast CA Hyperlipidemia Macular degeneration Physical Exam Const alert, oriented x3, no apparent distress, average body habitus and healthy appearing General Appearance: cooperative, comfortable, well kempt and well developed Orientation / Consciousness: awake, oriented to person, oriented to place and oriented to time Exam Limitations: no limitations HEENT normocephalic, head/scalp atraumatic, hearing grossly normal bilaterally and moist oral mucous membranes HEENT Narrative: Dentures in place, Mallampati 2, no thrush Eyes PERRL, EOMs intact bilaterally and conjunctivae normal Neck no lymphadenopathy and supple Neck Narrative: Trachea midline, no thyroid enlargement Resp normal respiratory effort, no retractions, no use of accessory muscles and clear to auscultation bilaterally Auscultation: Negative for crackles, rales, rhonchi or wheezes Cardio regular rate, regular rhythm, S1 normal heart sound, S2 normal heart sound, no murmurs, no rub, no gallops and no clicks GI normal to inspection, nondistended, normoactive bowel sounds, soft to palpation and non-tender Extremity no clubbing, cyanosis or edema Extremity Narrative: 2+ pedal pulses Skin no rashes or lesions noted, no wounds, skin turgor normal and no jaundice Neuro oriented x3, moves all extremities and no focal motor deficits Speech: speech normal Psych affect normal Psych Narrative: Very pleasant and appropriately interactive Weight / BMI Weight Weight: 71.5 kg Body Mass Index (BMI) 25.7 ABG / Lab / Microbiology Data Result Diagrams: 08/31/22 04:52 08/31/22 04:52 Laboratory: Laboratory Results - last 24 hr 08/30/22 20:08: POC Glucose 97 08/30/22 20:12: WBC 5.4, RBC 4.36, Hgb 13.0, Hct 40.2, MCV 92.2, MCH 29.8, MCHC 32.3, RDW Std Deviation 45.0 H, RDW Coeff of Junior 13.3, Plt Count 243, MPV 10.8, Immature Gran % (Auto) 0.200, Neut % (Auto) 54.8, Lymph % (Auto) 32.4, Dupage % (Auto) 8.3, Eos % (Auto) 3.7, Baso % (Auto) 0.6, Absolute Neuts (auto) 3.0, Absolute Lymphs (auto) 1.75, Nucleated RBC % 0 08/30/22 20:12: PT 12.5, INR 1.0, APTT 25.5 08/30/22 20:12: Sodium 142, Potassium 4.2, Chloride 107, Carbon Dioxide 30.0, Anion Gap 5, BUN 17, Creatinine 0.62, Estim Creat Clear Calc 45.76, Est GFR (MDRD) Af Amer 120, Est GFR (MDRD) Non-Af 100, BUN/Creatinine Ratio 27.2 H, Glucose 104, Calcium 8.8, Troponin I High Sens 7 08/30/22 20:12: Magnesium 2.3 08/31/22 04:52: WBC 5.1, RBC 4.03 L, Hgb 12.0, Hct 37.2, MCV 92.3, MCH 29.8, MCHC 32.3, RDW Std Deviation 44.7 H, RDW Coeff of Junior 13.2, Plt Count 224, MPV 11.1, Immature Gran % (Auto) 0.200, Neut % (Auto) 59.5, Lymph % (Auto) 28.1, Dupage % (Auto) 7.7, Eos % (Auto) 3.5, Baso % (Auto) 1.0, Absolute Neuts (auto) 3.0, Absolute Lymphs (auto) 1.43, Nucleated RBC % 0 08/31/22 04:52: Sodium 141, Potassium 3.9, Chloride 108 H, Carbon Dioxide 27.0, Anion Gap 6, BUN 14, Creatinine 0.60, Estim Creat Clear Calc 45.76, Est GFR (MDRD) Af Amer 127, Est GFR (MDRD) Non-Af 105, BUN/Creatinine Ratio 23.5 H, Glucose 105, Calcium 8.6, Total Bilirubin 0.30, AST 16, ALT 24, Alkaline Phosphatase 48, Total Protein 6.0 L, Albumin 3.0 L, Globulin 3.0, Albumin/Globulin Ratio 1.0, Triglycerides 46, Cholesterol 194, LDL Cholesterol 108, VLDL Cholesterol 9, HDL Cholesterol 77, TSH 1.66 08/31/22 04:52: Hemoglobin A1c 5.7 H Radiography Diagnostic Testing: Radiology Impression Brain CT 08/30/22 20:21 IMPRESSION: There is sinus disease. Electronically Signed: Odilon Holcomb MD at 20:54 EST , ADDENDUM: 08/30/222102 IMPRESSION: There is sinus disease. N.B. : The above Results were Read Back by Odilon Holcomb MD to MD tasia, and understanding confirmed on 08/30/2022 20:56:57 (ET). Electronically Signed: Odilon Holcomb MD at 20:54 EST , Head/Neck CTA 08/30/22 20:22 IMPRESSION: 1. There is calcified plaque formation of the right cavernous carotid artery, with a mild stenosis (less than 50%). ALL ABOVE CRITERIA BY NASCET. 2. There is calcified plaque formation of the left cavernous carotid artery, with a mild stenosis (less than 50%). ALL ABOVE CRITERIA BY NASCET. 3. There are no acute findings of the right and left internal carotid artery. ALL ABOVE CRITERIA BY NASCET. Electronically Signed: Odilon Holcomb MD at 21:09 EST , ADDENDUM: 08/30/222116 IMPRESSION: 1. There is calcified plaque formation of the right cavernous carotid artery, with a mild stenosis (less than 50%). ALL ABOVE CRITERIA BY NASCET. 2. There is calcified plaque formation of the left cavernous carotid artery, with a mild stenosis (less than 50%). ALL ABOVE CRITERIA BY NASCET. 3. There are no acute findings of the right and left internal carotid artery. ALL ABOVE CRITERIA BY NASCET. N.B. : The above Results were Read Back by Odilon Holcomb MD to Molly Bone MD, and understanding confirmed on 08/30/2022 21:10:59 (ET). Electronically Signed: Odilon Holcomb MD at 21:09 EST , Chest X-Ray 08/30/22 20:48 IMPRESSION: There are no acute findings. N.B. : The above Results were Read Back by Odilon Holcomb MD to Molly Bone MD, and understanding confirmed on 08/30/2022 21:09:07 (ET). Electronically Signed: Odilon Holcomb MD at 21:10 EST , ADDENDUM: 08/30/222116 IMPRESSION: There are no acute findings. N.B. : The above Results were Read Back by Odilon Holcomb MD to Molly Bone MD, and understanding confirmed on 08/30/2022 21:09:07 (ET). Electronically Signed: Odilon Holcomb MD at 21:10 EST , Brain MRI 08/31/22 09:00 IMPRESSION: 1. No MR evidence of acute or subacute ischemic infarct or acute intracranial abnormality. 2. Few chronic subcortical white matter ischemic changes in both cerebral hemispheres. Electronically Signed: Dusty Gaines MD at 10:32 EST Reading Location ID and State: [facility] / [place] , Service support , D/C Instructions Discharge Diet: Low fat / Low cholesterol Discharge Activity: Return to Normal Activity Meaningful Use Info Meaningful Use Diagnoses (Choose all that apply): None applicable Discharge Plan Admission Admit Date/Time: 08/30/22 21:06 Primary Reason for Your Visit: Word finding difficulties Attending Provider: Lilia Inman Primary Care Provider: Jakub Dial Consulting Providers: Rae Martinez Discharge Orders/Prescriptions Prescriptions: Continued turmeric 400 mg capsule PO omega-3 fatty acids 1,000 mg capsule 1,000 mg PO DAILY ascorbate calcium (vitamin C) 500 mg tablet 500 mg PO DAILY cholecalciferol (vitamin D3) 25 mcg (1,000 unit) capsule 50 mcg PO DAILY (DME) Breast prostesis (right) See Rx Instructions .Route .MEDSUPPLY Qty: 1 0RF Rx Instructions: As directed (DME) Mastectomy Bra See Rx Instructions .Route .MEDSUPPLY Qty: 2 0RF Rx Instructions: As directed vitamin B complex Tablet 1 tab PO DAILY aspirin [Adult Low Dose Aspirin] 81 mg tablet,delayed release (DR/EC) 81 mg PO .EVERY 4TH DAY Referrals / Follow Up: Jakub Dial MD [Primary Care Provider] - See Referral Note (as needed) Ruiz Newberry MD [Non-Staff] - Within 1 Month (Migraines) Disposition Disposition (needs filled in before D/C Order can be placed): Home, Self Care Charges/Coding Visit Charges OBSV E&M: 04685 Observation care discharge
--- NOTE | 2022-08-31 13:47 | PHA.DC.MR ---
Pharmacy Service has performed discharge medication reconciliation for this patient. The patient's discharge medication list was reviewed for discrepancies and discrepancies were resolved. Home Medications ascorbate calcium (vitamin C) 500 mg tablet 500 mg PO DAILY 08/27/20 omega-3 fatty acids 1,000 mg capsule 1,000 mg PO DAILY 08/27/20 turmeric 400 mg capsule mg PO 08/27/20 aspirin 81 mg tablet,delayed release (Adult Low Dose Aspirin) 81 mg PO .EVERY 4TH DAY 01/29/22 cholecalciferol (vitamin D3) 25 mcg (1,000 unit) capsule 50 mcg PO DAILY 01/29/22 vitamin B complex 1 tab PO DAILY 01/29/22
--- NOTE | 2022-08-31 13:54 | CASEMGMT ---
SW did not complete a PHQ9 with patient as she did not have a Stroke. Meghan MENJIVAR
== END 2022-08-31 13:21 | disposition home or self-care (01) ==
LOC: ED 21:14 → PCU 21:39
PROVIDERS: Admitting Provider Family Medicine; Emergency Provider Emergency Medicine; PCP Family Medicine; Visit Provider Internal Medicine
DX: G45.9 Transient cerebral ischemic attack, unspecified (principal); R47.01 Aphasia; G47.31 Primary central sleep apnea; E78.5 Hyperlipidemia, unspecified; Z95.2 Presence of prosthetic heart valve; Z79.899 Other long term (current) drug therapy; Z79.82 Long term (current) use of aspirin; I45.10 Unspecified right bundle-branch block; I10 Essential (primary) hypertension; I89.0 Lymphedema, not elsewhere classified
CPT/HCPCS: 36415; 70450; 70496; 70498; 70551; 71045; 80048; 80053; 80061; 82962; 83036; 83735; 84443; 84484; 85025; 85610; 85730; 92523; 92610; 93005; 93306; 94002; 94660; 94762; 96360; 96361; 99218; 99285; J7030; Q9967; A4216; G0378

== ENCOUNTER → 2023-09-17 | Outpatient (CLI) | payer MEDICARE, SELFPAY ==
[2023-09-17 07:06] LABS: Absolute Lymphocyte Count 1.33 X10^3/uL (0.83-4.51); Absolute Neutrophil Count 2.5 X10^3/uL (2.0-7.7); Basophil# 0.04 X10^3/uL; Basophil% 0.9 % (0-1); Eosinophil# 0.15 X10^3/uL; Eosinophils% 3.4 % (0-5); Hemoglobin 13.4 g/dL (12.0-15.0); Lymphocyte # 1.33 X10^3/ul (0.83-4.51); Mean Corp Hgb Conc 32.7 g/dL (32-36); Mean Corpuscular Hgb 29.9 pg (27.0-32.0); Mean Corpuscular Volume 91.5 fL (81-99); Mean Platelet Vol. 11.2 fl (6.2-12.0); Monocyte# 0.37 X10^3/uL; Monocyte% 8.4 % (0-10); NRBC Flagged by Analyzer 0 % (0-5); Neutrophil # 2.53 X10^3/uL (2.7-7.7); Neutrophil % 57.1 % (47-70); Platelet Count 228 K/mm3 (150-450); RBC Distribution Width CV 13.2 % (11.6-14.6); RBC Distribution Width SD 44.9 fl (35.1-43.9); Red Blood Count 4.48 M/mm3 (4.2-5.4); White Blood Count 4.4 K/mm3 (4.4-11.0)
[2023-09-17 07:41] LABS: Glucose GTT- Fasting 114 mg/dL (74-106)
[2023-09-17 07:44] LABS: ALB/GLOB Ratio 1.1 RATIO (0.9-2.4); AST(SGOT) 20 U/L (15-37); Alanine Aminotransfer ALT/SGPT 27 U/L (13-56); Albumin, Serum 3.7 g/dL (3.2-5.0); Alkaline Phosphatase 54 U/L (45-117); Anion Gap 4 (5-15); BUN 18 mg/dL (7-18); BUN/Creat Ratio 22.7 RATIO (10-20); Calcium,Total 9.2 mg/dL (8.5-10.1); Chloride 107 mmol/L (98-107); Creatinine, Serum 0.79 mg/dL (0.55-1.02); EST Glomerular Filtration Rate 76 mL/min (>60); Est Glom Filt Rate - Afr Amer 91 mL/min (>60); Globulin 3.4 g/dL (2.2-4.2); Glucose 107 mg/dL (74-106); Potassium 3.7 mmol/L (3.5-5.1); Protein, Total 7.1 g/dL (6.4-8.2); Sodium Level 140 mmol/L (136-145)
[2023-09-17 07:58] LABS: Glucose GTT-30 minutes 205 mg/dL (110-170)
[2023-09-17 08:00] LABS: Insulin 6.1 mU/L (2.6-37.6)
[2023-09-17 08:21] LABS: Glucose GTT- 1 Hour 202 mg/dL (120-170)
[2023-09-17 08:32] LABS: Insulin 116.5 mU/L (2.6-37.6)
[2023-09-17 09:34] LABS: Glucose GTT- 2 Hour 144 mg/dL (70-120)
[2023-09-17 10:51] LABS: Glucose GTT- 3 Hour 82 mg/dL (74-106)
[2023-09-17 11:25] LABS: Glucose GTT- 4 Hour 72 mg/dL (74-106)
[2023-09-17 13:10] LABS: Glucose GTT- 5 Hour 81 mg/dL (74-106)
== END | disposition home or self-care (01) ==
LOC: LAB 06:31
PROVIDERS: PCP Family Medicine; Referring Provider Family Medicine; Visit Provider Family Medicine
DX: R73.09 Other abnormal glucose (principal); R53.81 Other malaise
CPT/HCPCS: 36415; 80053; 82951; 82952; 83525; 85025

== ENCOUNTER 2024-01-04 14:50 | Outpatient (RCR) | payer MEDICARE, SELFPAY | END 2024-01-16 23:59 | LOC: NS 14:50 | PROVIDERS: PCP Family Medicine; Referring Provider Family Medicine; Visit Provider Family Medicine | DX: E11.9 Type 2 diabetes mellitus without complications (principal) | CPT/HCPCS: 97802 ==

== ENCOUNTER → 2024-03-03 | Outpatient (CLI) | payer MEDICARE, SELFPAY ==
[2024-03-03 09:31] LABS: AST(SGOT) 18 U/L (15-37); Alanine Aminotransfer ALT/SGPT 24 U/L (13-56); Albumin, Serum 3.6 g/dL (3.2-5.0); Alkaline Phosphatase 49 U/L (45-117); Bilirubin, Direct 0.21 mg/dL (0.00-0.30); Cholesterol 230 mg/dL (200); Globulin 3.1 g/dL (2.2-4.2); High Density Lipoprotein 89 mg/dL; Protein, Total 6.7 g/dL (6.4-8.2); Triglycerides 32 mg/dL; Very Low Density Lipoprotein 6 mg/dL (5-40)
== END | disposition home or self-care (01) ==
LOC: LAB 07:29
PROVIDERS: PCP Family Medicine; Referring Provider Nurse Practitioner Gerontology; Visit Provider Nurse Practitioner Gerontology
DX: E78.5 Hyperlipidemia, unspecified (principal)
CPT/HCPCS: 36415; 80061; 80076

== ENCOUNTER → 2024-03-15 | Outpatient (CLI) | payer MEDICARE, SELFPAY ==
--- NOTE | 2024-03-15 11:06 | ECHOD_ITS ---
Reason For Study: Valve Replacement Procedure This was a 2D Doppler, Color Flow transthoracic echocardiogram. Exam performed in department. Left Ventricle Normal LV size. Moderate concentric left ventricular hypertrophy. Left ventricular systolic function is normal. The estimated ejection fraction is 65 %. Stage 1 diastolic dysfunction. No regional wall motion abnormalities noted. Right Ventricle Normal RV size. Normal systolic function. Atria Normal left atrium. Normal right atrium. Mitral Valve Normal mitral valve. Mild (1+) eccentric mitral valve insufficiency. Tricuspid Valve Normal tricuspid valve. Mild tricuspid valve insufficiency. Pulmonary artery systolic pressure is 26 mmHg. Aortic Valve Peak aortic valve gradient 12 mmHg. Mean aortic valve gradient 6.6 mmHg. Bioprosthetic aortic valve. Pulmonic Valve Normal pulmonic valve. Great Vessels Normal aortic root. The pulmonary artery is normal size. Normal inferior vena cava. Pericardium/Pleural No pericardial effusion. MMode/2D Measurements & Calculations LVIDd: 4.6 cm IVSd: 1.3 cm LVOT diam: 2.0 cm LVIDs: 2.5 cm LVPWd: 1.6 cm LVOT area: 3.2 cm2 RVDd: 3.1 cm FS: 45.0 % LA dimension: 4.5 cm LAV(MOD-bp): 41.8 ml LVAd ap4: 22.9 cm2 LAV(MOD-bp) Indexed: 24.0 ml/m2 LVLd ap4: 6.7 cm LAV(MOD-sp2): 38.0 ml EDV(MOD-sp4): 64.2 ml LAV(MOD-sp4): 36.1 ml EDV(sp4-el): 66.2 ml LVAs ap4: 13.4 cm2 LVLs ap4: 6.3 cm ESV(MOD-sp4): 24.2 ml ESV(sp4-el): 24.5 ml EF(MOD-sp4): 62.4 % EF(sp4-el): 63.0 % SV(MOD-sp4): 40.1 ml SV(sp4-el): 41.7 ml LA A4 area: 16.0 cm2 RA A4 area: 15.5 cm2 TAPSE: 2.0 cm Time Measurements MV dec time: 0.28 sec Doppler Measurements & Calculations MV E max juan ramon: 65.0 cm/sec Lat Peak E' Juan Ramon: 7.3 cm/sec Med Peak E' Juan Ramon: 8.1 cm/sec MV A max juan ramon: 104.8 cm/sec E/E' lat: 8.9 E/E' med: 8.0 MV E/A: 0.62 Ao V2 max: 173.8 cm/sec LV V1 max: 135.1 cm/sec MV dec slope: 242.9 cm/sec2 Ao max P.1 mmHg LV V1 max P.3 mmHg Ao V2 mean: 119.9 cm/sec LV V1 mean P.4 mmHg Ao mean P.6 mmHg LV V1 mean: 97.9 cm/sec Ao V2 VTI: 37.4 cm LV V1 VTI: 32.0 cm AV (velocity ratio): 0.86 SEGUNDO(I,D): 2.7 cm2 SEGUNDO(V,D): 2.5 cm2 SV(LVOT): 101.9 ml PA V2 max: 93.3 cm/sec TR max juan ramon: 244.4 cm/sec PA V2 mean: 63.3 cm/sec TR max P.9 mmHg ECHO/Echo Complete Interpretation Summary Normal LV size. Moderate concentric left ventricular hypertrophy. Left ventricular systolic function is normal. The estimated ejection fraction is 65 %. Stage 1 diastolic dysfunction. Pulmonary artery systolic pressure is 26 mmHg. Mild (1+) eccentric mitral valve insufficiency. Mean aortic valve gradient 6.6 mmHg. Ordering Physician: Mitch Diallo Referring Physician: Jakub Dial Performed By: Eris Storey RCS
== END | disposition home or self-care (01) ==
PROVIDERS: PCP Family Medicine; Referring Provider Internal Medicine Cardiovascular Disease; Visit Provider Internal Medicine Cardiovascular Disease
DX: I45.10 Unspecified right bundle-branch block (principal); I44.1 Atrioventricular block, second degree; I35.0 Nonrheumatic aortic (valve) stenosis; Z95.2 Presence of prosthetic heart valve
CPT/HCPCS: 93306

== ENCOUNTER → 2025-07-13 | Emergency (ER) | payer MEDICARE, SELFPAY ==
[2025-07-13 08:23] VITALS: BP 154/73; PULSE 60; RESP 17; TEMP 37.1; O2SAT 96
[2025-07-13 08:24] VITALS: BP 151/71; PULSE 64; RESP 12; TEMP 36.1; O2SAT 96
[2025-07-13 08:27] VITALS: BMI 25.4
--- NOTE | 2025-07-13 09:25 | EX.ED.VIS.EY ---
HPI History of Present Illness Chief Complaint: Eye Problem Narrative Narrative: Chief complaint and HPI: 75-year-old female with past medical history of TAVR, history of breast cancer, history of corneal transplant with cataract removal by Dr. Elder Augustine in [place] in January 2015 presents for evaluation of bilateral blurry vision. Patient states she is visiting from [place]. She states today she woke up with bilateral blurry vision. She states she uses 1 drop of 1% prednisolone in both of her eyes every morning. She did not place them in her eyes this morning due to the blurriness. She denies any pain or redness to the eye. She denies any headache or URI symptoms. Review of systems: See HPI Medications: As listed on the chart Allergies: As listed on the chart PFSH: Per chart Vital signs: As listed on the chart. Reviewed. Physical exam: Gen: A&O x3, NAD Head: Normocephalic, atraumatic Eye: No periorbital swelling or ecchymosis, no proptosis, no pain with extra ocular movements, EOMI intact, PERRLA, no lacerations, no sclera chemosis or injection, no foreign body, no teardrop pupil, no enophthalmos, no obvious corneal clouding, optic disc visualized bilaterally, macula visualized bilaterally, normal vessels. Slit-lamp unable to be performed secondary to the machine being broken. Visual Acuity: Visual acuity is 20/50 in the right eye. Unable to be performed on the left. Per nursing staff, patient was able to get the E but states that this is because she knew that it starts with an E. States usually she can only see the second line out of her left eye ENT: TMs clear BL, moist mucous membranes, posterior oropharynx unremarkable, uvula midline, tonsils not enlarged Neck: Trachea midline, No JVD, Full ROM, No meningismus CV: RRR, no murmurs Resp: Lungs CTA BL, no w/r/c Musc: Full ROM Skin: Warm Neuro: Alert, oriented, grossly intact [facility] Medical History Hx of hyperlipidemia History of transcatheter aortic valve replacement (TAVR) (10/30/20) Right bundle branch block (RBBB) Central sleep apnea Hyperlipidemia Obstructive sleep apnea Left carotid bruit Amaurosis fugax Non-rheumatic aortic stenosis Bicuspid aortic valve Macular degeneration Arthritis Lymphedema of right arm Home Medications ?Medication ?Instructions ?Recorded ?Last Taken ?Type omega-3 fatty acids 1,000 mg 1,000 mg PO DAILY 08/27/20 Unknown History capsule turmeric 400 mg capsule mg PO 08/27/20 Unknown History Breast prostesis (right) #1 ea 05/06/21 Unknown Rx Mastectomy Bra #2 ea 05/06/21 Unknown Rx vitamin B complex 1 tab PO DAILY 01/29/22 Unknown History vitamins A,C,H-bqyi-xoxiux 4,296 1 cap PO BID 12/07/22 Unknown History mcg-226 mg-90 mg capsule (PreserVision AREDS) ascorbate calcium (vitamin C) 500 1 g PO DAILY 05/04/23 Unknown History mg tablet aspirin 81 mg tablet,delayed 81 mg PO Q3-4D 05/04/23 Unknown History release (Adult Low Dose Aspirin) Allergy/AdvReac Type Severity Reaction Status Date / Time Penicillins Allergy Unknown Unknown Verified 07/13/25 08:24 zinc Allergy Vomiting Verified 07/13/25 08:24 clopidogrel (From Plavix) AdvReac Intermediate Bruising, Verified 07/13/25 08:24 myalgias, joint pain Family History Mother Heart disease Father Dementia Surgical History History of aortic valve replacement History of left heart catheterization History of cataract surgery History of corneal transplant History of nasal septoplasty History of mastectomy H/O cataract extraction Social History Smoking Status: Never smoker alcohol intake: never substance use type: does not use EXAM Physical Exam Const Vital Signs: 07/13/25 08:24 Temperature 97 F L Temperature Source Temporal Pulse Rate 64 Respiratory Rate 12 Blood Pressure 151/71 H Blood Pressure Mean 97 Pulse Ox 96 Oxygen Delivery Method Room Air MDM MDM MDM Narrative Medical decision making narrative: 75-year-old female with past medical history of TAVR, history of breast cancer, history of corneal transplant with cataract removal by Dr. Elder Augustine in [place] in January 2015 presents for evaluation of bilateral blurry vision. Patient states she is visiting from [place]. She states today she woke up with bilateral blurry vision. She states she uses 1 drop of 1% prednisolone in both of her eyes every morning. She did not place them in her eyes this morning due to the blurriness. She denies any pain or redness to the eye. She denies any headache or URI symptoms. See physical exam findings. Slit-lamp unable to perform secondary to machine being broken. Ophthalmology consulted. Differential diagnosis includes but is not limited to worsening eyesight, development of cataracts, corneal rejection. Exam not consistent with infection. I spoke with ophthalmology, Dr. Dove. He was made aware that the slit-lamp was broken. He is okay that I did not perform fluorescein dye testing and ocular pressures, okay to forego at this time given HPI and physical exam. He will see the patient in his office for ophthalmology examination. Patient was updated of all the results. Patient stable to discharge to ophthalmology. Impression: 1. Bilateral blurry vision 2. History of corneal transplant with cataract removal Discharge Plan Triage Chief Complaint: Eye Problem ED Provider: Eris Triana Dx/Rx/DC Orders Prescriptions: No Action turmeric 400 mg capsule PO omega-3 fatty acids 1,000 mg capsule 1,000 mg PO DAILY ascorbate calcium (vitamin C) 500 mg tablet 1 g PO DAILY (DME) Breast prostesis (right) See Rx Instructions .Route .MEDSUPPLY Qty: 1 0RF Rx Instructions: As directed (DME) Mastectomy Bra See Rx Instructions .Route .MEDSUPPLY Qty: 2 0RF Rx Instructions: As directed vitamin B complex Tablet 1 tab PO DAILY PreserVision AREDS 4,296 mcg-226 mg-90 mg capsule 1 cap PO BID aspirin [Adult Low Dose Aspirin] 81 mg tablet,delayed release (DR/EC) 81 mg PO Q3-4D Primary Care Provider: Jakub Dial Referrals: Jakub Dial MD [Primary Care Provider, Family Practice] Print Language: Sinhala
--- OUTSIDE RECORDS SUMMARY | 2025-07-13 09:32 | XMS RPT_ITS | CCD ---
Author Organization [facility] Care Team Providers Care Welding Machine Assembler Name Role Phone Ilya Bishop MD Unavailable Zaida Dial Unavailable Zaida Dial Unavailable Jakub Dial Primary Care Provider Dr. Jakub Dial Primary Care Provider Dr. Jakub Dial Referring Provider [phone] Mitch Diallo Attending Provider Dr. Jakub Dial Primary Care Provider [phone] Dr. Molly Bone Emergency Provider Dr. Rae Martinez Admit Provider Dr. Rae Martinez Other Provider Dr. Lilia Inman Attending Provider Dr. Lilia Inman Other Provider Dial, Jakub Referring Unavailable Dila, Jakub Primary Care Unavailable Dial, Jakub Attending Unavailable Dial, Jakub Referring Unavailable Dial, Jakub Primary Care Unavailable Dial, Jakub Attending Unavailable Dial, Jakub Primary Care Unavailable Arthur MOORE, Rosalia Attending Unavailable Rosalia Gibson NP Referring Unavailable Yoel, [place] Attending Unavailable Dial, Jakub Primary Care Unavailable Dial, Jakub Referring Unavailable YoelTrae sosaril Attending Unavailable Dial, Jakub Primary Care Unavailable Dial, Jakub Primary Care Unavailable Arthur MOORE, Rosalia Attending Unavailable Dial, Jakub Referring Unavailable Dial, Jakub Referring Unavailable Dial, Jakub Primary Care Unavailable Dial, Jakub Attending Unavailable Yoel, [place] Attending Unavailable Yoel, Mitch Referring Unavailable Dial, Jakub Primary Care Unavailable Rosalia Gibson NP Referring Unavailable Dial, Jakub Primary Care Unavailable Arthur MOORE, Rosalia Attending Unavailable Allergies Allergy Classification Reported Allergen(s) Allergy Type Date of Onset Reaction(s) Facility (11 sources) Adhesive Tape; Translations: [adhesive tape] drug allergy 6 Rash [facility] Work Phone: (3 sources) penicillin drug allergy 2 [facility] Work Phone: (3 sources) ZINC-220 drug allergy N/V [facility] Work Phone: (5 sources) Penicillins Propensity to adverse reactions to drug 0 Rash, Shortness Of Breath [place], [place] (9 sources) Zinc Drug Allergy 0 Nausea And Vomiting [place], [place] (1 source) Aspirin Drug Allergy 2 Small dose ok: larger dose=spit and blew blood [facility] Work Phone: (5 sources) clopidogrel Drug Allergy 2 Bruising, myalgias, joint pain [facility] (4 sources) Penicillins Allergy to substance 2 Unknown [facility] (1 source) clopidogrel Drug Allergy 4 [facility] (1 source) Penicillins Drug allergy (disorder) 4 [facility] (1 source) Zinc Drug Allergy 4 [facility] Medications Current Medications Medication Drug Class(es) Dates Sig (Normalized) Sig (Original) acetaminophen 325 mg oral tablet (1 source) Start: 10-30-2020 acetaminophen (TYLENOL) tablet 650 mg b complex vitamins capsule (2 sources) take 1 capsule by mouth once daily b complex vitamins capsule Take 1 capsule by mouth daily 0 Active bisacodyl 5 mg delayed release oral tablet (1 source) Stimulant Laxative Start: 10-30-2020 bisacodyl (DULCOLAX) EC tablet 5 mg Breast prostesis (right) (5 sources) Start: 05-06-2021 Breast prostesis (right) Active 0 .Route .MEDSUPPLY May 06, 2021 9:45am As directed Start: 05-06-2021 Breast prostes is (right) Active 0 .Route .MEDSUPPLY May 06, 2021 12:00am As directed Start: 05-06-2021 Breast prostes is (right) Active 0 .Route .MEDSUPPLY 1 May 05, 2021 11:00pm As directed calcium ascorbate 500 mg oral tablet (7 sources) Start: 05-04-2023 take 1 g by mouth once daily Ascorbate Calcium (Vitamin C) Active 1 GM PO DAILY May 04, 2023 9:04am Start: 08-27-2020 End: 05-04-2023 take 500 mg by mouth once daily Ascorbate Calcium (Vitamin C) Discontinued 500 MG PO DAILY August 27, 2020 1:00am May 04, 2023 9:05am docosahexaenoic acid 120 mg / eicosapentaenoic acid 180 mg oral capsule (4 sources) take 1 capsule by mouth once daily T[place]opa-3 1000 MG CAPS Take 1 capsule by mouth daily 0 Active Mastectomy Bra (5 sources) Start: 05-06-2021 Mastectomy Bra Active 0 .Route .MEDSUPPLY 2 May 06, 2021 9:45am As directed Start: 05-06-2021 Mastectomy Bra Active 0 .Route .MEDSUPPLY 2 May 06, 2021 12:00am As directed Start: 05-06-2021 Mastectomy Bra Active 0 .Route .MEDSUPPLY 2 May 05, 2021 11:00pm As directed Multivitamins (1 source) Start: 02-13-2021 take 1 tablet by mouth once daily Multivitamins Active 1 TAB PO DAILY February 13, 2021 2:06pm Tecopa-3 Fatty Acids (5 sources) Start: 08-27-2020 take 1000 mg by mouth once daily Tecopa-3 Fatty Acids Active 1000 MG PO DAILY August 27, 2020 10:56am Start: 08-27-2020 take 1000 mg by mouth once courtney ly Tecopa-3 Fatty Acids Active 1000 MG PO DAILY August 27, 2020 1:00am Start: 08-27-2020 take 1000 mg by mouth once courtney ly Tecopa-3 Fatty Acids Active 1000 MG PO DAILY August 27, 2020 12:00am 2 ml ondansetron 2 mg/ml injection (1 source) Serotonin-3 Receptor Antagonist Start: 10-30-2020 ondansetron (ZOFRAN) injection 4 mg pantoprazole 40 mg delayed release oral tablet (1 source) Proton Pump Inhibitor Start: 10-30-2020 pantopra zole (PROTONIX) tablet 40 mg perflutren lipid microspheres (DEFINITY) injection 1.65 mg (2 sources) Start: 10-30-2020 End: 11-02-2020 perflutren lipid microspheres (DEFINITY) injection 1.65 mg Start: 10-30-2020 End: 11-02-2020 perflutren lipid microsphere s (DEFINITY) injection 1.65 mg Turmeric extract (9 sources) Start: 08-27-2020 Turmeric Activ e MG PO August 27, 2020 10:55am Start: 08-27-2020 Turmeric Activ e MG PO August 27, 2020 1:00am Start: 08-27-2020 Turmeric Activ e MG PO August 27, 2020 12:00am take 5 mL by mouth once daily TU RMERIC PO Take 5 mLs by mouth daily 0 Active take 1 capsule by mo ut once daily Turmeric 500 MG CAPS Take 1 capsule by mouth daily 0 Active vitamin B complex (8 sources) Start: 01-29-2022 take 1 tablet by joesph th once daily Vitamin B Complex Active 1 TABLET PO DAILY January 29, 2022 3:41pm Start: 01-29-2022 take 1 tablet by joesph th once daily Vitamin B Complex Active 1 TABLET PO DAILY January 29, 2022 12:00am Start: 01-29-2022 take 1 tablet by joesph th once daily Vitamin B Complex Active 1 TABLET PO DAILY January 28, 2022 11:00pm Start: 09-30-2016 take 1 tablet by joesph th once daily VITAMIN B COMPLEX TABS One tablet by mouth daily B COMPLEX VITAMINS [id number] Mitch Diallo MD vitamin b6 100 mg oral tablet (1 source) take 1 tablet by mouth once daily vitamin B-6 (PYRIDOXINE) 100 MG tablet Take 100 mg by mouth daily 0 Active Vitamins A,C,Y-Dnfz-Dfhtgu (Preservision Areds) 4,296 mcg-226 mg-90 mg capsule (2 sources) Start: 12-07-2022 take 1 capsule by mouth twice daily Vitamins A,C,P-Rixf-Ftdszd (Preservision Areds) 4,296 mcg-226 mg-90 mg capsule Active 1 CAP PO TWICE A DAY December 07, 2022 1:00am Start: 12-07-2022 take 1 capsule by mo uth twice daily Vitamins A,C,C-Qver-Brdlwp (Preservision Areds) 4,296 mcg-226 mg-90 mg capsule Active 1 CAP PO TWICE A DAY December 07, 2022 12:00am Completed/Discontinued Medications Medication Drug Class(es) Dates Sig (Normalized) Sig (Original) ascorbic acid (10 sources) Start: 03-28-2012 take 1 tablet by mouth once daily VITAMIN C One tablet by mouth daily VITAMIN C Elizabeth Luevano take 1 tablet by mouth once sharmaine y vitamin C (ASCORBIC ACID) 500 MG tablet Take 500 mg by mouth daily 0 Active take 1 tablet by mouth twice courtney ly VITAMIN C 1000 MG TABS One tablet by mouth twice daily ASCORBIC ACID [id number] Eliseo Cantrell aspirin 81 mg delayed release oral tablet (20 sources) Platelet Aggregation Inhibitor, Nonsteroidal Anti-inflammatory Drug Start: 01-29-2022 End: 05-04-2023 Aspirin (Adult Low Dose Aspirin) 81 mg tablet,delayed release (DR/EC) Discontinued 81 MG PO DAILY September 16, 2022 6:45pm May 04, 2023 9:05am Start: 06-03-2021 End: 01-29-2022 Aspirin (Adult Low Dose Aspi rin) 81 mg tablet,delayed release (DR/EC) Discontinued 81 MG PO every other day June 03, 2021 12:00am January 29, 2022 3:40pm Start: 02-13-2021 End: 06-03-2021 take 1 tablet by mouth once daily Aspirin (Adult Aspirin Regimen) 81 mg tablet,delayed release (DR/EC) Discontinued 81 MG PO DAILY February 13, 2021 12:00am June 03, 2021 2:19pm On Hold: On hold for eyelid surgery Feb 25 2021 Start: 10-30-2020 take 1 tablet by joesph once daily aspirin 81 MG EC tablet Take 1 tablet by mouth daily 30 tablet 3 10/31/2020 Active Start: 09-11-2020 End: 09-25-2020 take 1 tablet by mouth once daily Aspirin (Adult Aspirin Regimen) 81 mg tablet,delayed release (DR/EC) Discontinued 81 MG PO DAILY September 11, 2020 1:00am September 25, 2020 3:13pm beta carotene 56345 unt oral tablet (11 sources) Start: 01-13-2017 End: 04-27-2017 take 71480 [IU] by mouth once daily Beta Carotene Discontinued 13886 UNIT PO DAILY January 13, 2017 12:00am April 27, 2017 4:17pm Start: 04-28-2016 BETA CAROTENE 42549 UNIT CAPS One tablet as needed BETA CAROTENE [id number] Eliseo Cantrell take 1 tablet by joesph th once daily BETA CAROTENE 61371 UNIT CAPS One tablet by mouth daily BETA CAROTENE [id number] Eliseo Cantrell BREAST PROSTHESIS (3 sources) Start: 12-28-2016 BREAST PROSTHE SIS Right breast Dx:Right breast cancer C50.919 BREAST PROSTHESIS Tiffanie Sommers CNP CALCIUM-MAGNESIUM (4 sources) Start: 09-29-2016 End: 09-30-2016 take 1 tablet by mouth once daily CALCIUM MAGNESIUM 750 300-300 MG TABS One tablet by mouth daily CALCIUM-MAGNESIUM [id number] Mitch Diallo MD Start: 09-29-2016 take 1 tablet by joesph th once daily CALCIUM MAGNESIUM 750 300-300 MG TABS One tablet by mouth daily CALCIUM-MAGNESIUM [id number] John Hall RN CALCIUM-MAGNESIUM (2 sources) Start: 09-29-2016 End: 09-30-2016 take 1 tablet by mouth once daily CALCIUM MAGNESIUM 750 300-300 MG TABS One tablet by mouth daily CALCIUM-MAGNESIUM [id number] Mitch Diallo MD Start: 09-29-2016 take 1 tablet by joesph th once daily CALCIUM MAGNESIUM 750 300-300 MG TABS One tablet by mouth daily CALCIUM-MAGNESIUM [id number] John Hall RN cholecalciferol 0.025 mg oral capsule (17 sources) Vitamin D Start: 01-29-2022 End: 05-04-2023 take 50 ug by mouth once daily Cholecalciferol (Vitamin D3) Discontinued 50 MCG PO DAILY January 29, 2022 3:41pm May 04, 2023 9:02am Start: 08-27-2020 End: 01-29-2022 take 25 ug by mouth once daily Cholecalciferol (Vitami n D3) Discontinued 25 MCG PO DAILY August 27, 2020 1:00am January 29, 2022 3:41pm Start: 09-30-2016 take 1 tablet by joesph th once daily VITAMIN D 2000 UNIT TABS One tablet by mouth daily CHOLECALCIFEROL [id number] Mitch Diallo MD take 1 capsule by mo uth once daily vitamin D 25 MCG (1000 UT) CAPS Take 1 capsule by mouth daily 0 Active clopidogrel 75 mg oral tablet (11 sources) P2Y12 Platelet Inhibitor Start: 11-11-2020 End: 12-30-2020 take 1 tablet by mouth once daily Clopidogrel (Plavix) 75 mg tablet Discontinued 75 MG PO daily November 11, 2020 1:00am December 30, 2020 10:52am Start: 10-31-2020 take 1 tablet by joesph th once daily clopidogrel (PLAVIX) 75 MG tablet Take 1 tablet by mouth daily 30 tablet 2 10/31/2020 Active Start: 10-31-2020 End: 10-31-2020 take 1 tablet by mouth once daily clopidogrel (PLAVIX) 75 MG tablet Take 1 tablet by mouth daily 30 tablet 2 10/31/2020 10/31/2020 Discontinued Start: 10-30-2020 clopidogrel (P LAVIX) tablet 300 mg doxycycline hyclate 100 mg oral tablet (10 sources) Tetracycline-class Drug Start: 11-15-2020 End: 01-20-2021 take 100 mg by mouth twice daily Doxycycline Hyclate Discontinued 100 MG PO TWICE A DAY November 15, 2020 3:19pm January 20, 2021 11:22am iopamidol (ISOVUE-370) 76 % injection 75 mL (1 source) Start: 10-15-2020 End: 10-15-2020 iopamidol (ISOVUE-370) 76 % injection 75 mL MASTECTOMY BRA (3 sources) Start: 12-28-2016 MASTECTOMY BRA Dx: Right breast cancer C50.919 MASTECTOMY BRA Tiffanie Sommers CNP OMEGA-3 FATTY ACIDS (2 sources) take 1 tablet by mouth once daily OMEGA-3 300 MG CAPS One tablet by mouth daily OMEGA-3 FATTY ACIDS [id number] Eliseo Joy Alam OMEGA-3 FATTY ACIDS (1 source) take 1 tablet by mouth once daily OMEGA-3 300 MG CAPS One tablet by mouth daily OMEGA-3 FATTY ACIDS [id number] Eliseo Cantrell prednisoLONE acetate 10 mg/ml ophthalmic suspension (3 sources) Corticosteroid Start: 09-30-2016 PREDNISOLONE ACETATE 1 % SUSP Opthalmic eye gtts as directed PREDNISOLONE ACETATE [id number] Mitch Diallo MD 50 ml sodium chloride 9 mg/ml injection (4 sources) Start: 10-30-2020 End: 10-30-2020 0.9 % sodium chloride bolus Start: 10-30-2020 End: 11-02-2020 sodium chloride flush 0.9 % injection 10 mL Start: 10-30-2020 End: 10-30-2020 0.9 % sodium chloride infusi on vitamin A (3 sources) Vitamin A Start: 03-28-2012 take 1 tablet by mouth once daily VITAMIN A One tablet by mouth daily VITAMIN A Elizabeth Jacqueline Luevano VITAMIN D3 (6 sources) Start: 03-28-2012 End: 04-30-2015 take 1 tablet by mouth once daily VITAMIN D3 One tablet by mouth daily VITAMIN D3 Gomes Benita Cantrell Start: 03-28-2012 take 1 tablet by joesph once daily VITAMIN D3 One tablet by mouth daily VITAMIN D3 Elizabeth A Chloé Problems Active Problems Problem Classification Problem Date Documented Date Episodic/Chronic Cancer of breast (11 sources) Malignant neoplasm of unspecified site of unspecified female breast; Translations: [Malignant tumor of breast ] Onset: 04-21-2007 07-23-2015 Chronic Cancer of breast (8 sources) History of malignant neoplasm of breast; Translations: [Personal history of malignant neoplasm of breast] Onset: 04-28-2016 04-28-2016 Episodic Cardiac and circulatory congenital anomalies (3 sources) Bicuspid aortic valve; Translations: [Congenital insufficiency of aortic valve] Onset: 09-29-2016 09-29-2016 Chronic Conditions associated with dizziness or vertigo (2 sources) Lightheadedness; Translations: [Dizziness and giddiness] 04-16-2023 Episodic Conduction disorders (14 sources) Right bundle branch block; Translations: [First degree atrioventricular block] Onset: 11-27-2020 11-27-2020 Chronic Diabetes mellitus without complication (2 sources) Type 2 diabetes mellitus without complications; Translations: [Type 2 diabetes mellitus without complications] Onset: 01-17-2024 Chronic Disorders of lipid metabolism (6 sources) Hyperlipidemia; Translations: [Hyperlipidemia, unspecified] Onset: 03-15-2024 08-18-2021 Chronic Heart valve disorders (20 sources) Aortic stenosis, non-rheumatic ; Translations: [Aortic valve stenosis] Onset: 09-29-2016 09-29-2016 Chronic Malaise and fatigue (5 sources) Fatigue; Translations: [Other fatigue] 12-25-2020 Episodic Open wounds of extremities (5 sources) Laceration of left lower leg; Translations: [Laceration without foreign body, left lower leg, initial encounter] 03-23-2020 Episodic Other lower respiratory disease (6 sources) Dyspnea; Translations: [Shortness of breath] 01-29-2022 Episodic Other lower respiratory disease (1 source) Shortness of breath; Translations: [Shortness of breath] Episodic Other nutritional; endocrine; and metabolic disorders (4 sources) H/O: raised blood lipids; Translations: [Personal history of other endocrine, nutritional and metabolic disease] 09-08-2022 Episodic Other nutritional; endocrine; and metabolic disorders (2 sources) Personal history of other endocrine, nutritional and metabolic disease; Translations: [Personal history of other endocrine, metabolic, and immunity disorders] Episodic Residual codes; unclassified (4 sources) Obstructive sleep apnea syndrome; Translations: [CARLOS (obstructive sleep apnea)] Onset: 10-31-2020 10-31-2020 Chronic Transient cerebral ischemia (9 sources) Amaurosis fugax; Translations: [Amaurosis fugax] Chronic Past or Other Problems Problem Classification Problem Date Documented Da te Episodic/Chronic Diabetes mellitus without complication (1 source) Other abnormal glucose; Translations: [Other abnormal glucose] Onset: 09-23-2023 Episodic Syncope (3 sources) Near syncope; Translations: [Syncope and collapse] Onset: 07-09-2023 04-16-2023 Episodic Results Test Name Value Interpretation Reference Range Facility [facility] 03-15-2024 Echo [facility] [address] [place] [address] Echo Complete 03/15/24 1111 MR#: [id number] Acct: [id number] Name: ARELI CHEEK Rep #: [id number] : 1950 74 From: Mitch Diallo MD Attending Dr: Dr. Mitch Diallo MD Status: SIVAN SEVERINO Ordering Dr: Mitch Diallo MD Date: 03/15/24 Location: [facility] Sex: F C Admitted: Reason For Study: Valve Replacement Procedure This was a 2D Doppler, Color Flow transthoracic echocardiogram. Exam performed in department. Left Ventricle Normal LV size. Moderate concentric left ventricular hypertrophy. Left ventricular systolic function is normal. The estimated ejection fraction is 65 %. Stage 1 diastolic dysfunction. No regional wall motion abnormalities noted. Right Ventricle Normal RV size. Normal systolic function. Atria Normal left atrium. Normal right atrium. Mitral Valve Normal mitral valve. Mild (1+) eccentric mitral valve insufficiency. Tricuspid Valve Normal tricuspid valve. Mild tricuspid valve insufficiency. Pulmonary artery systolic pressure is 26 mmHg. Aortic Valve Peak aortic valve gradient 12 mmHg. Mean aortic valve gradient 6.6 mmHg. Bioprosthetic aortic valve. Pulmonic Valve Normal pulmonic valve. Great Vessels Normal aortic root. The pulmonary artery is normal size. Normal inferior vena cava. Pericardium/Pleural No pericardial effusion. MMode/2D Measurements Calculations LVIDd: 4.6 cm IVSd: 1.3 cm LVOT diam: 2.0 cm LVIDs: 2.5 cm LVPWd: 1.6 cm LVOT area: 3.2 cm2 RVDd: 3.1 cm FS: 45.0 % LA dimension: 4.5 cm LAV(MOD-bp): 41.8 ml LVAd ap4: 22.9 cm2 LAV(MOD-bp) Indexed: 24.0 ml/m2 LVLd ap4: 6.7 cm LAV(MOD-sp2): 38.0 ml EDV(MOD-sp4): 64.2 ml LAV(MOD-sp4): 36.1 ml EDV(sp4-el): 66.2 ml LVAs ap4: 13.4 cm2 LVLs ap4: 6.3 cm ESV(MOD-sp4): 24.2 ml ESV(sp4-el): 24.5 ml EF(MOD-sp4): 62.4 % EF(sp4-el): 63.0 % SV(MOD-sp4): 40.1 ml SV(sp4-el): 41.7 ml LA A4 area: 16.0 cm2 RA A4 area: 15.5 cm2 TAPSE: 2.0 cm Time Measurements MV dec time: 0.28 sec Doppler Measurements Calculations MV E max jessica: 65.0 cm/sec Lat Peak E' Jessica: 7.3 cm/sec Med Peak E' Jessica: 8.1 cm/sec MV A max jessica: 104.8 cm/sec E/E' lat: 8.9 E/E' med: 8.0 MV E/A: 0.62 Ao V2 max: 173.8 cm/sec LV V1 max: 135.1 cm/sec MV dec slope: 242.9 cm/sec2 Ao max P.1 mmHg LV V1 max P.3 mmHg Ao V2 mean: 119.9 cm/sec LV V1 mean P.4 mmHg Ao mean P.6 mmHg LV V1 mean: 97.9 cm/sec Ao V2 VTI: 37.4 cm LV V1 VTI: 32.0 cm AV (velocity ratio): 0.86 SEGUNDO(I,D): 2.7 cm2 SEGUNDO(V,D): 2.5 cm2 SV(LVOT): 101.9 ml PA V2 max: 93.3 cm/sec TR max jessica: 244.4 cm/sec PA V2 mean: 63.3 cm/sec TR max P.9 mmHg ECHO/Echo Complete Interpretation Summary Normal LV size. Moderate concentric left ventricular hypertrophy. Left ventricular systolic function is normal. The estimated ejection fraction is 65 %. Stage 1 diastolic dysfunction. Pulmonary artery systolic pressure is 26 mmHg. Mild (1+) eccentric mitral valve insufficiency. Mean aortic valve gradient 6.6 mmHg. Ordering Physician: Mitch Diallo Referring Physician: Jakub Dial Performed By: Eris Storey RCS 03/19/24 1447 Date Mitch Diallo MD CC: Dr. Mitch Diallo MD; Dr. Jakub Dial MD Date Dictated: 03/15/24 1111 Date Transcribed: 03/19/247 Sleep Lab Technician: Signed [facility] Lipid Profileon 03-03-2024 Cholesterol [Mass/Vol] 230 mg/dL High 200 [facility] Comment on above: Result Comment: <200 mg/dL Desirable 200-240 mg/dL Borderline >240 mg/dL High Risk Performed By: #### L 500.3400, L500.4100 #### [facility] [address] [place], [address] Cholesterol in HDL [Mass/Vol] 89 mg/dL Normal [facility] Comment on above: Result Comment: The drugs N-Acetylcysteine and Metamizole may falsely depress this assay. Reference Range HDL <40 mg/dL Low HDL Cholesterol HDL >or= 60 mg/dL High HDL Cholesterol Performed By: #### L 500.3400, L500.4100 #### [facility] [address] [place], [address] Cholesterol in LDL [Mass/Vol] 135 mg/dL High 0-130 [facility] Comment on above: Performed By: #### L 500.3400, L500.4100 #### [facility] [address] [place], [address] Cholesterol in VLDL [Mass/Vol] 6 mg/dL Normal 5-40 [facility] Comment on above: Performed By: #### L 500.3400, L500.4100 #### [facility] [address] [place], [address] Triglyceride [Mass/Vol] 32 mg/dL Normal [facility] Comment on above: Result Comment: The drugs N-Acetylcysteine and Metamizole may falsely depress this assay. Serum Triglycerides Reference Interval Normal <150 mg/dL Borderline high 150 - 199 mg/dL High 200 - 499 mg/dL Very High > or = 500 mg/dL Performed By: #### L 500.3400, L500.4100 #### [facility] [address] [place], [address] Liver Profileon 03-03-2024 Albumin [Mass/Vol] 3.6 g/dL Normal 3.2-5.0 [facility] Comment on above: Performed By: #### L 500.3400, L500.4100 #### [facility] [address] [place], [address] ALK P 49 U/L Normal 45-117 [facility] Comment on above: Performed By: #### L 500.3400, L500.4100 #### [facility] [address] [place], [address] ALT [Catalytic activity/Vol] 24 U/L Normal 13-56 [facility] Comment on above: Performed By: #### L 500.3400, L500.4100 #### [facility] [address] [place], [address] AST [Catalytic activity/Vol] 18 U/L Normal 15-37 [facility] Comment on above: Performed By: #### L 500.3400, L500.4100 #### [facility] [address] [place], [address] Bilirubin [Mass/Vol] 0.80 mg/dL Normal 0.20-1.00 [facility] Comment on above: Result Comment: For patients on eltrombopag therapy, use of Dimension [place] TBIL is not recommended. Performed By: #### L 500.3400, L500.4100 #### [facility] [address] [place], [address] Bilirubin.direct [Mass/Vol] 0.21 mg/dL Normal 0.00-0.30 [facility] Comment on above: Performed By: #### L 500.3400, L500.4100 #### [facility] [address] [place], [address] Globulin (S) [Mass/Vol] 3.1 g/dL Normal 2.2-4.2 [facility] Comment on above: Performed By: #### L 500.3400, L500.4100 #### [facility] [address] [place], [place], [address] T PROT 6.7 g/dL Normal 6.4-8.2 [facility] Comment on above: Performed By: #### L 500.3400, L500.4100 #### [facility] [address] [place], [address] Cardiology Visit Reporton Cardiology Visit Report [facility] [address] [place], [place] [address] OFFICE VISIT Date of Service: 03/02/24 MR#: [id number] Acct: [id number] Name: ARELI CHEEK Rep #: [id number] : 1950 Provider: LUAN martinez Age/Sex: 74/F Location: [facility] [place] Status: Signed HPI HPI History of Present Illness Details: ARELI CHEEK, is a 74 F who presents to the office today for a follow-up visit. She is a lady with a history of a aortic valve disease who in 2017 demonstrated an ejection fraction of 65%. Her echocardiogram in August 2020 showed severe aortic valve stenosis. She underwent TAVR with a 26 mm Eduardo S3 Ultra bioprosthetic valve on 10/30/2020 at [facility]. She tells me that she has been doing much better since then. She had a repeat echocardiogram in October 2021 demonstrating an ejection fraction of 65% and a stable valve. She however says that she does get mildly short of breath when she goes upstairs and is at all concerned. She remembered that her coronary arteries were angiographically normal. Her blood pressure is under good control. The mean gradient across the aortic valve was approximately 5 mmHg. She underwent a 7 day event monitor through her PCP's office in October of this year, which demonstrated normal sinus rhythm with first-degree AV block, average heart 76bpm, rate 62 bpm, maximum heart rate 121 bpm. There was note of AV block-2nd degree type 1. PAC-0.11%, PVC-0.13%. This was reviewed with her. The last echocardiogram from August 2022 demonstrated a well-seated functioning bioprosthetic valve. From a cardiac standpoint, the patient is doing well. She denies any palpitations, chest pain, pressure or heaviness. She denies SOB, Orthopnea, and PND. She does not have bleeding issues; no blood in urine, stool or nosebleeds. She denies any decrease in energy level, myalgias, or claudication. She does not have edema, or sudden weight gain. She denies dizziness, lightheadedness, syncopal or near syncopal episodes, and headaches. She is scheduled for an echocardiogram tomorrow. Intake Vital Signs 01/04/24 15:00 03/02/24 10:15 Height 5 ft 5.5 in 5 ft 5.5 in Weight: 148 lb BMI 24.2 BP 126/69 H Blood Pressure Location Lt brachial Position Sitting Respiration 18 Pulse 64 Pulse Source Monitor Pulse Oximetry (%) 92 Intake Visit Reasons: SEE CLINICAL NOTE Student Financial Services Counselor Required: No Is patient in pain?: No Allergies Penicillins Allergy (Unknown, Verified 03/02/24 13:02) Unknown zinc Allergy (Verified 03/02/24 13:02) Vomiting clopidogrel (From Plavix) Adverse Reaction (Intermediate, Verified 03/02/24 13:02) Bruising, myalgias, joint pain Medications ???Medication ???Instructions ???Recorded ???Confirmed ???Type omega-3 fatty acids 1,000 mg 1,000 mg PO DAILY 08/27/20 03/02/24 History capsule turmeric 400 mg capsule mg PO 08/27/20 03/02/24 History Breast prostesis (right) #1 ea 05/06/21 03/02/24 Rx Mastectomy Bra #2 ea 05/06/21 03/02/24 Rx vitamin B complex 1 tab PO DAILY 01/29/22 03/02/24 History vitamins A,C,Z-ykhb-ttmieq 4,296 1 cap PO BID 12/07/22 03/02/24 History mcg-226 mg-90 mg capsule (PreserVision AREDS) ascorbate calcium (vitamin C) 500 1 g PO DAILY 05/04/23 03/02/24 History mg tablet aspirin 81 mg tablet,delayed 81 mg PO Q3-4D 05/04/23 03/02/24 History release (Adult Low Dose Aspirin) PFSH Medical History (Reviewed 03/02/24 @ 10:28 by Rosalia Gibson GYMNASTICS INSTRUCTOR, GYMNASTICS INSTRUCTOR-C) Hx of hyperlipidemia History of transcatheter aortic valve replacement (TAVR) (10/30/20) Right bundle branch block (RBBB) Central sleep apnea Hyperlipidemia Obstructive sleep apnea Left carotid bruit Amaurosis fugax Non-rheumatic aortic stenosis Bicuspid aortic valve Macular degeneration Arthritis Lymphedema of right arm Surgical History History of aortic valve replacement History of left heart catheterization History of cataract surgery History of corneal transplant History of nasal septoplasty History of mastectomy H/O cataract extraction Family History Mother Heart disease Father Dementia Social History Smoking Status: Never smoker alcohol intake: never substance use type: does not use ROS Const Const: Negative for fatigue, weakness, fever(s), headache(s), chills, frequent falls, weight gain or weight loss Eyes Eyes: Negative for blind spots, loss of peripheral vision, transient loss of vision, blurry vision, change in vision, double vision, floaters or tunnel vision ENT ENT: Negative for headache(s), dizziness, Nosebleed/epistaxis, balance problems or neck pain Cardio Ches (more content not included)... Normal [facility] 5 HR Glucose Tolerance Testo n 09-17-2023 5HR GTT High [facility] Comment on above: Order Comment: Y Result Comment: FAST ING 114 H Col: 09/17/23 0648 GLUCOSE TOLERANCE TEST Reference Interval Non- Adults Fasting 74 - 106 30 minutes 110 - 170 1 hour 120 - 170 2 hour 74 - 120 3 hour 74 - 106 4 hour 74 - 106 5 hour 74 - 106 GLU 1/2 HR 205 H Col: 09/17/23 0730 GLU 1 HR 202 H Col: 09/17/23 0800 GLU 2 HR 144 H Col: 09/17/23 0900 GLU 3 HR 82 Col: 09/17/23 1000 GLU 4 HR 72 L Col: 09/17/23 1100 GLU 5 HR 81 Col: 09/17/23 1200 Performed By: #### L 100.0100, [id number], L500.4050, L500.4900 #### [facility] [address] [place], [address] Absolute lymphocyte countOrd ered By: Jakub Dial on 09-17-2023 Lymphocytes Auto (Unsp spec) [#/Vol] 1.33 10*3/uL 0.83-4.51 [facility] Basophil percentageOrdered B y: Jakub Dial on 09-17-2023 Basophils/100 WBC (Bld) 0.9 % 0-1 [facility] Bilirubin [Mass/Vol] 0.60 mg/dL 0.20-1.00 [facility] Comment on above: For patients on eltr ombopag therapy, use of Dimension [place] TBIL is not recommended. Chloride [Moles/Vol] 107 mmol/L 98-107 [facility] Eosinophils/100 WBC (Bld) 3.4 % 0-5 [facility] Glucose [Mass/Vol] 107 mg/dL 74-106 [facility] Comment on above: Fasting Glucose resu lt from 100 to 125 mg/dL suggests IMPAIRED HOMEOSTASIS per A.D.A. criteria. Neutrophils (Bld) [#/Vol] 2.5 10*3/uL 2.0-7.7 [facility] Neutrophils/100 WBC (Bld) 57.1 % 47-70 [facility] Potassium [Moles/Vol] 3.7 mmol/L 3.5-5.1 [facility] Protein [Mass/Vol] 7.1 g/dL 6.4-8.2 [facility] Sodium [Moles/Vol] 140 mmol/L 136-145 [facility] WBC (Bld) [#/Vol] 4.4 10*3/uL 4.4-11.0 [facility] Blood erythrocytes count (nu mber/volume)Ordered By: Jakub Dial on 09-17-2023 RBC (Bld) [#/Vol] 4.48 10*6/uL 4.2-5.4 [facility] Blood hemoglobin measurement (mass/volume)Ordered By: Jakub Dial on 09-17-2023 Hemoglobin (Bld) [Mass/Vol] 13.4 g/dL 12.0-15.0 [facility] Blood lymphocytes/100 leukoc ytesOrdered By: Jakub Dial on 09-17-2023 Lymphocytes/100 WBC (Bld) 30.0 % 19-41 [facility] Blood monocytes/100 leukocyt esOrdered By: Jakub Dial on 09-17-2023 Monocytes/100 WBC (Bld) 8.4 % 0-10 [facility] Blood platelet mean volumeOr dered By: Jakub Dial on 09-17-2023 Platelet mean volume (Bld) [Entitic vol] 11.2 fL 6.2-12.0 [facility] CBC W/Diff, Automatedon 12-0 -2022 Absolute Lymph 1.33 X10 3/uL Normal 0.83-4.51 [facility] Comment on above: Performed By: #### L 100.0100, [id number], L500.4050, L500.4900 #### [facility] [address] [place], [address] Absolute Neut 2.5 X10 3/uL Normal 2.0-7.7 [facility] Comment on above: Performed By: #### L 100.0100, [id number], L500.4050, L500.4900 #### [facility] [address] [place], [address] Basophils/100 WBC (Bld) 0.9 % Normal 0-1 [facility] Comment on above: Performed By: #### L 100.0100, [id number], L500.4050, L500.4900 #### [facility] [address] [place], [address] Eosinophils/100 WBC (Bld) 3.4 % Normal 0-5 [facility] Comment on above: Performed By: #### L 100.0100, [id number], L500.4050, L500.4900 #### [facility] [address] [place], [address] Erythrocyte distribution width (RBC) [Ratio] 13.2 % Normal 11.6-14.6 [facility] Comment on above: Performed By: #### L 100.0100, [id number], L500.4050, L500.4900 #### [facility] [address] [place], [address] Hematocrit (Bld) [Volume fraction] 41.0 % Normal 37-47 [facility] Comment on above: Performed By: #### L 100.0100, [id number], L500.4050, L500.4900 #### [facility] [address] [place], [address] Hemoglobin (Bld) [Mass/Vol] 13.4 g/dL Normal 12.0-15.0 [facility] Comment on above: Performed By: #### L 100.0100, [id number], L500.4050, L500.4900 #### [facility] [address] [place], [address] IG% 0.200 Normal 0.0-0.9 [facility] Comment on above: Result Comment: IG% - Immature Granulocytes (promyelocytes, myelocytes and metamyelocytes) > 1% indicates that a LEFT SHIFT is Present. Performed By: #### L 100.0100, [id number], L500.4050, L500.4900 #### [facility] [address] [place], [address] Lymphocytes/100 WBC (Bld) 30.0 % Normal 19-41 [facility] Comment on above: Performed By: #### L 100.0100, [id number], L500.4050, L500.4900 #### [facility] [address] [place], [address] MCH (RBC) [Entitic mass] 29.9 pg Normal 27.0-32.0 [facility] Comment on above: Performed By: #### L 100.0100, [id number], L500.4050, L500.4900 #### [facility] [address] [place], [address] MCHC (RBC) [Mass/Vol] 32.7 g/dL Normal 32-36 [facility] Comment on above: Performed By: #### L 100.0100, [id number], L500.4050, L500.4900 #### [facility] [address] [place], [address] MCV (RBC) [Entitic vol] 91.5 fL Normal 81-99 [facility] Comment on above: Performed By: #### L 100.0100, [id number], L500.4050, L500.4900 #### [facility] [address] [place], [address] Monocytes/100 WBC (Bld) 8.4 % Normal 0-10 [facility] Comment on above: Performed By: #### L 100.0100, [id number], L500.4050, L500.4900 #### [facility] [address] [place], [address] Neutrophils/100 WBC (Bld) 57.1 % Normal 47-70 [facility] Comment on above: Performed By: #### L 100.0100, [id number], L500.4050, L500.4900 #### [facility] [address] [place], [address] Nucleated RBC (Bld) [#/Vol] 0 10*3/uL Normal 0-5 [facility] Comment on above: Performed By: #### L 100.0100, [id number], L500.4050, L500.4900 #### [facility] [address] [place], [address] Platelet mean volume (Bld) [Entitic vol] 11.2 fL Normal 6.2-12.0 [facility] Comment on above: Performed By: #### L 100.0100, [id number], L500.4050, L500.4900 #### [facility] [address] [place], [address] Platelets (Bld) [#/Vol] 228 10*3/uL Normal 150-450 [facility] Comment on above: Performed By: #### L 100.0100, [id number], L500.4050, L500.4900 #### [facility] [address] [place], [address] RBC (Bld) [#/Vol] 4.48 10*6/uL Normal 4.2-5.4 [facility] Comment on above: Performed By: #### L 100.0100, [id number], L500.4050, L500.4900 #### [facility] [address] [place], [address] RDW SD 44.9 fl High 35.1-43.9 [facility] Comment on above: Performed By: #### L 100.0100, [id number], L500.4050, L500.4900 #### [facility] [address] [place], [address] WBC (Bld) [#/Vol] 4.4 10*3/uL Normal 4.4-11.0 [facility] Comment on above: Performed By: #### L 100.0100, [id number], L500.4050, L500.4900 #### [facility] [address] [place], [address] Comprehensive Metabolic Prof ilon 09-17-2023 Albumin [Mass/Vol] 3.7 g/dL Normal 3.2-5.0 [facility] Comment on above: Order Comment: Y Performed By: #### L 100.0100, [id number], L500.4050, L500.4900 #### [facility] [address] [place], [address] Albumin/Globulin [Mass ratio] 1.1 {ratio} Normal 0.9-2.4 [facility] Comment on above: Order Comment: Y Performed By: #### L 100.0100, [id number], L500.4050, L500.4900 #### [facility] [address] [place], [address] ALK P 54 U/L Normal 45-117 [facility] Comment on above: Order Comment: Y Performed By: #### L 100.0100, [id number], L500.4050, L500.4900 #### [facility] [address] [place], [address] ALT [Catalytic activity/Vol] 27 U/L Normal 13-56 [facility] Comment on above: Order Comment: Y Performed By: #### L 100.0100, [id number], L500.4050, L500.4900 #### [facility] [address] [place], [address] AST [Catalytic activity/Vol] 20 U/L Normal 15-37 [facility] Comment on above: Order Comment: Y Performed By: #### L 100.0100, [id number], L500.4050, L500.4900 #### [facility] [address] [place], [address] Bilirubin [Mass/Vol] 0.60 mg/dL Normal 0.20-1.00 [facility] Comment on above: Order Comment: Y Result Comment: For patients on eltrombopag therapy, use of Dimension [place] TBIL is not recommended. Performed By: #### L 100.0100, [id number], L500.4050, L500.4900 #### [facility] [address] [place], [address] BUN/CRE 22.7 RATIO High 10-20 [facility] Comment on above: Order Comment: Y Performed By: #### L 100.0100, [id number], L500.4050, L500.4900 #### [facility] [address] [place], [address] CA,Total 9.2 mg/dL Normal 8.5-10.1 [facility] Comment on above: Order Comment: Y Performed By: #### L 100.0100, [id number], L500.4050, L500.4900 #### [facility] [address] [place], [address] Chloride [Moles/Vol] 107 mmol/L Normal 98-107 [facility] Comment on above: Order Comment: Y Performed By: #### L 100.0100, [id number], L500.4050, L500.4900 #### [facility] [address] [place], [address] CO2 [Moles/Vol] 29.0 mmol/L Normal 21.0-32.0 [facility] Comment on above: Order Comment: Y Performed By: #### L 100.0100, [id number], L500.4050, L500.4900 #### [facility] [address] [place], [address] Creatinine [Mass/Vol] 0.79 mg/dL Normal 0.55-1.02 [facility] Comment on above: Order Comment: Y Result Comment: The validity of the calculated GFR GFRAA in patients over 70 years has not been determined. Clinical correlation is essential. Performed By: #### L 100.0100, [id number], L500.4050, L500.4900 #### [facility] [address] [place], [address] EST GFR - AA 91 mL/min Normal >60 [facility] Comment on above: Order Comment: Y Result Comment: Afri can [place]ij[place] GFR Calc Performed By: #### L 100.0100, [id number], L500.4050, L500.4900 #### [facility] [address] [place], [address] GAP 4 Low 5-15 [facility] Comment on above: Order Comment: Y Performed By: #### L 100.0100, [id number], L500.4050, L500.4900 #### [facility] [address] [place], [address] GFR/1.73 sq M.predicted among non-blacks MDRD (S/P/Bld) [Vol rate/Area] 76 mL/min/{1.73_m2} Normal >60 [facility] Comment on above: Order Comment: Y Result Comment: Non- GFR Calc Performed By: #### L 100.0100, [id number], L500.4050, L500.4900 #### [facility] [address] [place], [address] Globulin (S) [Mass/Vol] 3.4 g/dL Normal 2.2-4.2 [facility] Comment on above: Order Comment: Y Performed By: #### L 100.0100, [id number], L500.4050, L500.4900 #### [facility] [address] [place], [address] Glucose [Mass/Vol] 107 mg/dL High 74-106 [facility] Comment on above: Order Comment: Y Result Comment: Fast ing Glucose result from 100 to 125 mg/dL suggests IMPAIRED HOMEOSTASIS per A.D.A. criteria. Performed By: #### L 100.0100, [id number], L500.4050, L500.4900 #### [facility] [address] [place], [address] Potassium [Moles/Vol] 3.7 mmol/L Normal 3.5-5.1 [facility] Comment on above: Order Comment: Y Performed By: #### L 100.0100, [id number], L500.4050, L500.4900 #### [facility] [address] [place], [address] Sodium [Moles/Vol] 140 mmol/L Normal 136-145 [facility] Comment on above: Order Comment: Y Performed By: #### L 100.0100, [id number], L500.4050, L500.4900 #### [facility] [address] [place], [address] T PROT 7.1 g/dL Normal 6.4-8.2 [facility] Comment on above: Order Comment: Y Performed By: #### L 100.0100, [id number], L500.4050, L500.4900 #### [facility] [address] [place], [address] Urea nitrogen [Mass/Vol] 18 mg/dL Normal 7-18 [facility] Comment on above: Order Comment: Y Performed By: #### L 100.0100, [id number], L500.4050, L500.4900 #### [facility] [address] [place], [address] Determination of erythrocyte mean corpuscular volume (MCV)Ordered By: Jakub iDal on 09-17-2023 MCV (RBC) [Entitic vol] 91.5 fL 81-99 [facility] Hematocrit Auto (Bld) [Volum e fraction]Ordered By: Jakub Dial on 09-17-2023 Hematocrit (Bld) [Volume fraction] 41.0 % 37-47 [facility] Insulinon 09-17-2023 Insulin 116.5 mU/L High 2.6-37.6 [facility] Comment on above: Performed By: #### L [id number] #### [facility] [address] [place], [address] Insulin 6.1 mU/L Normal 2.6-37.6 [facility] Comment on above: Performed By: #### L 100.0100, [id number], L500.4050, L500.5760 #### [facility] [address] [place], [address] Laboratory - Chemistry and C hemistry - challengeOrdered By: Jakub Dial on 09-17-2023 ALP [Catalytic activity/Vol] 54 U/L 45-117 [facility] ALT [Catalytic activity/Vol] 27 U/L 13-56 [facility] CO2 [Moles/Vol] 29.0 mmol/L 21.0-32.0 [facility] Globulin (S) [Mass/Vol] 3.4 g/dL 2.2-4.2 [facility] Urea nitrogen/Creatinine [Mass ratio] 22.7 mg/mg 10-20 [facility] - Hematology and Cell countsOrdered By: Jakub Dial on 09-17-2023 Erythrocyte distribution width (RBC) [Entitic vol] 44.9 fL 35.1-43.9 [facility] Erythrocyte distribution width (RBC) [Ratio] 13.2 % 11.6-14.6 [facility] Immature granulocytes/100 WBC (Bld) 0.200 % 0.0-0.9 [facility] Comment on above: IG% - Immature Granu locytes (promyelocytes, myelocytes and metamyelocytes) > 1% indicates that a LEFT SHIFT is Present. MCH (RBC) [Entitic mass] 29.9 pg 27.0-32.0 [facility] Nucleated RBC/100 WBC (Bld) [Ratio] 0 % 0-5 [facility] MCHC Auto (RBC) [Mass/Vol]Or dered By: Jakub Dial on 09-17-2023 MCHC (RBC) [Mass/Vol] 32.7 g/dL 32-36 [facility] No Panel InformationOrdered By: Jakub Dial on 09-17-2023 Insulin Level 116.5 mU/L 2.6-37.6 [facility] Estimated GFR (MDRD) Amer 91 mL/min >60 [facility] Comment on above: GFR Calc Estimated GFR (MDRD) Non-Af Amer 76 mL/min >60 [facility] Comment on above: Non- GFR Calc Platelets bldOrdered By: Hali Dial on 09-17-2023 Platelets (Bld) [#/Vol] 228 10*3/uL 150-450 [facility] Serum or plasma albumin akshat urement (mass/volume)Ordered By: Jakub Dial on 09-17-2023 Albumin [Mass/Vol] 3.7 g/dL 3.2-5.0 [facility] Serum or plasma albumin/glob ulin mass ratioOrdered By: Jakub Dial on 09-17-2023 Albumin/Globulin [Mass ratio] 1.1 {ratio} 0.9-2.4 [facility] Serum or plasma calcium akshat urement (mass/volume)Ordered By: Jakub Dial on 09-17-2023 Calcium [Mass/Vol] 9.2 mg/dL 8.5-10.1 [facility] Serum or plasma creatinine m easurement (mass/volume)Ordered By: Jakbu Dial on 09-17-2023 Creatinine [Mass/Vol] 0.79 mg/dL 0.55-1.02 [facility] Comment on above: The validity of the calculated GFR & GFRAA in patients over 70 years has not been determined. Clinical correlation is essential. Serum or plasma glucose akshat urement 5 hours post dose glucose (mass/volume)Ordered By: Jakub Dial on 09-17-2023 Glucose 5 Hr post dose glucose [Mass/Vol] See comment [facility] Comment on above: FASTING 114 H Col: 1 11/18/22 0648GLUCOSE TOLERANCE TEST Reference Interval Non- Adults Fasting 74 - 106 30 minutes 110 - 170 1 hour 120 - 170 2 hour 74 - 120 3 hour 74 - 106 4 hour 74 - 106 5 hour 74 - 106 GLU 1/2 HR 205 H Col: 09/17/23 0730 GLU 1 HR 202 H Col: 09/17/23 0800 GLU 2 HR 144 H Col: 09/17/23 0900 GLU 3 HR 82 Col: 09/17/23 1000 GLU 4 HR 72 L Col: 09/17/23 1100 GLU 5 HR 81 Col: 09/17/23 1200 Serum or plasma urea nitroge n measurement (mass/volume)Ordered By: Jakub Dial on 09-17-2023 Urea nitrogen [Mass/Vol] 18 mg/dL 7-18 [facility] Thin prep Papanicolaou smear with manual screeningOrdered By: Jakub Dial on 09-17-2023 Thin prep Papanicolaou smear with manual screening 20 U/L 15-37 [facility] Thin prep Papanicolaou smear with manual screening 4 5-15 [facility] Cardiology Visit Reporton Cardiology Visit Report [facility] [address] [place] [address] OFFICE VISIT Date of Service: 05/04/23 MR#: [id number] Acct: [id number] Name: ARELI CHEEK Rep #: [id number] : 1950 Provider: Dr. Mitch Diallo MD Age/Sex: 73/F Location[place] [facility] [place] Status: Signed HPI HPI History of Present Illness Details: ARELI CHEEK, is a 73 F who presents to the office today for a follow-up visit. She is a lady with a history of a aortic valve disease who in 2017 demonstrated an ejection fraction of 65%. Her echocardiogram in August 2020 showed severe aortic valve stenosis. She underwent TAVR with a 26 mm Eduardo S3 Ultra bioprosthetic valve on 10/30/2020 at [facility]. She tells me that she has been doing much better since then. She had a repeat echocardiogram in October 2021 demonstrating an ejection fraction of 65% and a stable valve. She however says that she does get mildly short of breath when she goes upstairs and is at all concerned. She remembered that her coronary arteries were angiographically normal. Her blood pressure is under good control. The mean gradient across the aortic valve was approximately 5 mmHg. She underwent a 7 day event monitor through her PCP's office in October of this year, which demonstrated normal sinus rhythm with first-degree AV block, average heart 76bpm, rate 62 bpm, maximum heart rate 121 bpm. There was note of AV block-2nd degree type 1. PAC-0.11%, PVC-0.13%. This was reviewed with her. From a cardiac standpoint, the patient is doing well. She denies any palpitations, chest pain, pressure or heaviness. She does have an occasional SOB with exertion-hurrying or climbing stairs. Sh galileo denies Orthopnea, and PND. She does not have bleeding issues; no blood in urine, stool or nosebleeds. She denies any decrease in energy level, myalgias, or claudication. She denies edema, or sudden weight gain. She does have an occasional lightheadedness. She thinks this may be related to her blood sugar but she has never checked her blood sugar. She currently has a 14-day event monitor on. She had one in October of this year which also demonstrated predominantly sinus rhythm. They last echocardiogram from August 2022 demonstrated a well-seated functioning bioprosthetic valve. She denies dizziness, syncopal or near syncopal episodes, and headaches. 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 Required: No Accompanied by: None Is patient in pain?: No Allergies Penicillins Allergy (Unknown, Verified 05/04/23 09:01) Unknown zinc Allergy (Verified 05/04/23 09:01) Vomiting clopidogrel [From Plavix] Adverse Reaction (Intermediate, Verified 05/04/23 09:01) Bruising, myalgias, joint pain Medications omega-3 fatty acids 1,000 mg capsule 1,000 mg PO DAILY 08/27/20 [History Confirmed 05/04/23] turmeric 400 mg capsule mg PO 08/27/20 [History Confirmed 05/04/23] Breast prostesis (right) #1 ea 05/06/21 [Rx Confirmed 12/07/22] Mastectomy Bra #2 ea 05/06/21 [Rx Confirmed 12/07/22] vitamin B complex 1 tab PO DAILY 01/29/22 [History Confirmed 05/04/23] vitamins A,C,Z-cami-khhvoh 4,296 mcg-226 mg-90 mg capsule (PreserVision AREDS) 1 cap PO BID 12/07/22 [History Confirmed 12/07/22] ascorbate calcium (vitamin C) 500 mg tablet 1 g PO DAILY 05/04/23 [History Confirmed 05/04/23] aspirin 81 mg tablet,delayed release (Adult Low Dose Aspirin) 81 mg PO Q3-4D 05/04/23 [History Confirmed 05/04/23] Ejection fraction %: 55 to 59 PFSH Medical History Amaurosis fugax Arthritis Bicuspid aortic valve Central sleep apnea History of transcatheter aortic valve replacement (TAVR) (10/30/20) Hx of hyperlipidemia Hyperlipidemia Left carotid bruit Lymphedema of right arm Macular degeneration Non-rheumatic aortic stenosis Obstructive sleep apnea Right bundle branch block (RBBB) Surgical History H/O cataract extraction History of aortic valve replacement History of cataract surgery History of corneal transplant History of left heart catheterization History of mastectomy History of nasal septoplasty Family History Mother Heart disease Father Dementia Social History Smoking Status: Never smoker alcohol intake: never substance use type: does not use R (more content not included)... Normal [facility] Absolute lymphocyte counton 08-31-2022 Lymphocytes Auto (Unsp spec) [#/Vol] 1.43 10*3/uL 0.83-4.51 [facility] Work Phone: Basophil percentageon 2021 Basophils/100 WBC (Bld) 1.0 % 0-1 [facility] Work Phone: Bilirubin [Mass/Vol] 0.30 mg/dL 0.20-1.00 [facility] Work Phone: Comment on above: For patients on eltr ombopag therapy, use of Dimension [place] TBIL is not recommended. Chloride [Moles/Vol] 108 mmol/L 98-107 [facility] Work Phone: Cholesterol [Mass/Vol] 194 mg/dL <200 [facility] Work Phone: Comment on above: <200 mg/dL Desirable 200-240 mg/dL Borderline >240 mg/dL High Risk Eosinophils/100 WBC (Bld) 3.5 % 0-5 [facility] Work Phone: Glucose [Mass/Vol] 105 mg/dL 74-106 [facility] Work Phone: Comment on above: Fasting Glucose resu lt from 100 to 125 mg/dL suggests IMPAIRED HOMEOSTASIS per A.D.A. criteria. Neutrophils (Bld) [#/Vol] 3.0 10*3/uL 2.0-7.7 [facility] Work Phone: Neutrophils/100 WBC (Bld) 59.5 % 47-70 [facility] Work Phone: Potassium [Moles/Vol] 3.9 mmol/L 3.5-5.1 [facility] Work Phone: Protein [Mass/Vol] 6.0 g/dL 6.4-8.2 [facility] Work Phone: Sodium [Moles/Vol] 141 mmol/L 136-145 [facility] Work Phone: Triglyceride [Mass/Vol] 46 mg/dL <199 [facility] Work Phone: Comment on above: The drugs N-Acetylcy steine and Metamizole may falsely depress this assay.Serum Triglycerides Reference Interval Normal <150 mg/dL Borderline high 150 - 199 mg/dL High 200 - 499 mg/dL Very High > or = 500 mg/dL WBC (Bld) [#/Vol] 5.1 10*3/uL 4.4-11.0 [facility] Work Phone: Blood erythrocytes count (nu mber/volume)on 08-31-2022 RBC (Bld) [#/Vol] 4.03 10*6/uL 4.2-5.4 [facility] Work Phone: Blood hemoglobin measurement (mass/volume)on 08-31-2022 Hemoglobin (Bld) [Mass/Vol] 12.0 g/dL 12.0-15.0 [facility] Work Phone: Blood lymphocytes/100 leukoc yteson 08-31-2022 Lymphocytes/100 WBC (Bld) 28.1 % 19-41 [facility] Work Phone: Blood monocytes/100 leukocyt eson 08-31-2022 Monocytes/100 WBC (Bld) 7.7 % 0-10 [facility] Work Phone: Blood platelet mean volumeon 08-31-2022 Platelet mean volume (Bld) [Entitic vol] 11.1 fL 6.2-12.0 [facility] Work Phone: [phone] Determination of erythrocyte mean corpuscular volume (MCV)on 08-31-2022 MCV (RBC) [Entitic vol] 92.3 fL 81-99 [facility] Work Phone: Hematocrit Auto (Bld) [Volum e fraction]on 08-31-2022 Hematocrit (Bld) [Volume fraction] 37.2 % 37-47 [facility] Work Phone: [phone] Laboratory - Chemistry and C hemistry - challengeon 08-31-2022 ALP [Catalytic activity/Vol] 48 U/L 45-117 [facility] Work Phone: ALT [Catalytic activity/Vol] 24 U/L 13-56 [facility] Work Phone: [phone] CO2 [Moles/Vol] 27.0 mmol/L 21.0-32.0 [facility] Work Phone: [phone] Globulin (S) [Mass/Vol] 3.0 g/dL 2.2-4.2 [facility] Work Phone: Urea nitrogen/Creatinine [Mass ratio] 23.5 mg/mg 10-20 [facility] Work Phone: Laboratory - Hematology and Cell countson 08-31-2022 Erythrocyte distribution width (RBC) [Entitic vol] 44.7 fL 35.1-43.9 [facility] Work Phone: [phone] Erythrocyte distribution width (RBC) [Ratio] 13.2 % 11.6-14.6 [facility] Work Phone: Immature granulocytes/100 WBC (Bld) 0.200 % 0.0-0.9 [facility] Work Phone: Comment on above: IG% - Immature Granu locytes (promyelocytes, myelocytes and metamyelocytes) > 1% indicates that a LEFT SHIFT is Present. MCH (RBC) [Entitic mass] 29.8 pg 27.0-32.0 [facility] Work Phone: Nucleated RBC/100 WBC (Bld) [Ratio] 0 % 0-5 [facility] Work Phone: MCHC Auto (RBC) [Mass/Vol]on 08-31-2022 MCHC (RBC) [Mass/Vol] 32.3 g/dL 32-36 [facility] Work Phone: No Panel Informationon 08-31 Estimated Creatinine Clearance Calc 45.76 ml/min [facility] Work Phone: Estimated GFR (MDRD) Amer 127 mL/min >60 [facility] Work Phone: Comment on above: GFR Calc Estimated GFR (MDRD) Non-Af Amer 105 mL/min >60 [facility] Work Phone: Comment on above: Non- GFR Calc Thyroid Stimulating Hormone (TSH) 1.66 uIU/mL 0.358-3.74 [facility] Work Phone: Platelets bldon 08-31-2022 Platelets (Bld) [#/Vol] 224 10*3/uL 150-450 [facility] Work Phone: Serum or plasma albumin akshat urement (mass/volume)on 08-31-2022 Albumin [Mass/Vol] 3.0 g/dL 3.2-5.0 [facility] Work Phone: [phone] Serum or plasma albumin/glob ulin mass ratioon 08-31-2022 Albumin/Globulin [Mass ratio] 1.0 {ratio} 0.9-2.4 [facility] Work Phone: Serum or plasma calcium akshat urement (mass/volume)on 08-31-2022 Calcium [Mass/Vol] 8.6 mg/dL 8.5-10.1 [facility] Work Phone: Serum or plasma cholesterol in HDL measurement (mass/volume)on 08-31-2022 Cholesterol in HDL [Mass/Vol] 77 mg/dL >40 [facility] Work Phone: Comment on above: The drugs N-Acetylcy steine and Metamizole may falsely depress this assay. Reference Range HDL <40 mg/dL Low HDL Cholesterol HDL >or= 60 mg/dL High HDL Cholesterol Serum or plasma cholesterol in VLDL measurement (mass/volume)on 08-31-2022 Cholesterol in VLDL [Mass/Vol] 9 mg/dL 5-40 [facility] Work Phone: Serum or plasma creatinine m easurement (mass/volume)on 08-31-2022 Creatinine [Mass/Vol] 0.60 mg/dL 0.55-1.02 [facility] Work Phone: Comment on above: The validity of the calculated GFR & GFRAA in patients over 70 years has not been determined. Clinical correlation is essential. Serum or plasma low density lipoprotein (LDL) cholesterol measurement (mass/volume)on 08-31-2022 Cholesterol in LDL [Mass/Vol] 108 mg/dL 0-130 [facility] Work Phone: Serum or plasma urea nitroge n measurement (mass/volume)on 08-31-2022 Urea nitrogen [Mass/Vol] 14 mg/dL 7-18 [facility] Work Phone: Thin prep Papanicolaou smear with manual screeningon 08-31-2022 Thin prep Papanicolaou smear with manual screening 16 U/L 15-37 [facility] Work Phone: Thin prep Papanicolaou smear with manual screening 6 5-15 [facility] Work Phone: Whole blood hemoglobin A1c/t otal hemoglobin ratio (mass fraction)on 08-31-2022 HbA1c (Bld) [Mass fraction] 5.7 % 3.8-5.6 [facility] Work Phone: [phone] Comment on above: Normal < 5.7 % Predi abetic 5.7 - 6.4 % Diabetic >or= 6.5 % Please note range changes. Absolute lymphocyte counton 08-30-2022 Lymphocytes Auto (Unsp spec) [#/Vol] 1.75 10*3/uL 0.83-4.51 [facility] Work Phone: Basophil percentageon 2021 Basophils/100 WBC (Bld) 0.6 % 0-1 [facility] Work Phone: Chloride [Moles/Vol] 107 mmol/L 98-107 [facility] Work Phone: Eosinophils/100 WBC (Bld) 3.7 % 0-5 [facility] Work Phone: [phone] Glucose [Mass/Vol] 104 mg/dL 74-106 [facility] Work Phone: Comment on above: Fasting Glucose resu lt from 100 to 125 mg/dL suggests IMPAIRED HOMEOSTASIS per A.D.A. criteria. Neutrophils (Bld) [#/Vol] 3.0 10*3/uL 2.0-7.7 [facility] Work Phone: Neutrophils/100 WBC (Bld) 54.8 % 47-70 [facility] Work Phone: Potassium [Moles/Vol] 4.2 mmol/L 3.5-5.1 [facility] Work Phone: Sodium [Moles/Vol] 142 mmol/L 136-145 [facility] Work Phone: WBC (Bld) [#/Vol] 5.4 10*3/uL 4.4-11.0 [facility] Work Phone: [phone] Blood erythrocytes count (nu mber/volume)on 08-30-2022 RBC (Bld) [#/Vol] 4.36 10*6/uL 4.2-5.4 [facility] Work Phone: Blood hemoglobin measurement (mass/volume)on 08-30-2022 Hemoglobin (Bld) [Mass/Vol] 13.0 g/dL 12.0-15.0 [facility] Work Phone: [phone] Blood lymphocytes/100 leukoc yteson 08-30-2022 Lymphocytes/100 WBC (Bld) 32.4 % 19-41 [facility] Work Phone: [phone] Blood monocytes/100 leukocyt eson 08-30-2022 Monocytes/100 WBC (Bld) 8.3 % 0-10 [facility] Work Phone: Blood platelet mean volumeon 08-30-2022 Platelet mean volume (Bld) [Entitic vol] 10.8 fL 6.2-12.0 [facility] Work Phone: Determination of erythrocyte mean corpuscular volume (MCV)on 08-30-2022 MCV (RBC) [Entitic vol] 92.2 fL 81-99 [facility] Work Phone: Glucose Glucometer (BldC) [M ass/Vol]on 08-30-2022 Glucose [Mass/Vol] 97 mg/dL 74-106 [facility] Work Phone: Comment on above: MANAGEMENT OF PATIEN T CARE PER NURSING PROTOCOL Hematocrit Auto (Bld) [Volum e fraction]on 08-30-2022 Hematocrit (Bld) [Volume fraction] 40.2 % 37-47 [facility] Work Phone: INR in Blood by Coagulation assayon 08-30-2022 INR Coag (Bld) [Relative time] 1.0 {INR} [facility] Work Phone: Laboratory - Chemistry and C hemistry - challengeon 08-30-2022 CO2 [Moles/Vol] 30.0 mmol/L 21.0-32.0 [facility] Work Phone: Magnesium [Mass/Vol] 2.3 mg/dL 1.6-2.6 [facility] Work Phone: Urea nitrogen/Creatinine [Mass ratio] 27.2 mg/mg 10-20 [facility] Work Phone: Laboratory - Coagulationon 1 10-30-2021 aPTT Coag (Bld) [Time] 25.5 s 24.1-36.2 [facility] Work Phone: PT Coag (PPP) [Time] 12.5 s 11.7-14.9 [facility] Work Phone: Laboratory - Hematology and Cell countson 08-30-2022 Erythrocyte distribution width (RBC) [Entitic vol] 45.0 fL 35.1-43.9 [facility] Work Phone: Erythrocyte distribution width (RBC) [Ratio] 13.3 % 11.6-14.6 [facility] Work Phone: Immature granulocytes/100 WBC (Bld) 0.200 % 0.0-0.9 [facility] Work Phone: Comment on above: IG% - Immature Granu locytes (promyelocytes, myelocytes and metamyelocytes) > 1% indicates that a LEFT SHIFT is Present. MCH (RBC) [Entitic mass] 29.8 pg 27.0-32.0 [facility] Work Phone: Nucleated RBC/100 WBC (Bld) [Ratio] 0 % 0-5 [facility] Work Phone: MCHC Auto (RBC) [Mass/Vol]on 08-30-2022 MCHC (RBC) [Mass/Vol] 32.3 g/dL 32-36 [facility] Work Phone: No Panel Informationon 08-30 Estimated Creatinine Clearance Calc 45.76 ml/min [facility] Work Phone: Estimated GFR (MDRD) Amer 120 mL/min >60 [facility] Work Phone: Comment on above: GFR Calc Estimated GFR (MDRD) Non-Af Amer 100 mL/min >60 [facility] Work Phone: Comment on above: Non- GFR Calc Troponin I High Sensitivity 7 pg/mL 3.0-54.0 [facility] Work Phone: Comment on above: Please Note: New Odilia t Units and Gender Specific Reference Ranges. For more information see Policy Stat Procedure [place] High Sensitivity Troponin (TNIH) and attachments. Platelets bldon 08-30-2022 Platelets (Bld) [#/Vol] 243 10*3/uL 150-450 [facility] Work Phone: Serum or plasma calcium akshat urement (mass/volume)on 08-30-2022 Calcium [Mass/Vol] 8.8 mg/dL 8.5-10.1 [facility] Work Phone: Serum or plasma creatinine m easurement (mass/volume)on 08-30-2022 Creatinine [Mass/Vol] 0.62 mg/dL 0.55-1.02 [facility] Work Phone: Comment on above: The validity of the calculated GFR & GFRAA in patients over 70 years has not been determined. Clinical correlation is essential. Serum or plasma urea nitroge n measurement (mass/volume)on 08-30-2022 Urea nitrogen [Mass/Vol] 17 mg/dL 7-18 [facility] Work Phone: Thin prep Papanicolaou smear with manual screeningon 08-30-2022 Thin prep Papanicolaou smear with manual screening 5 5-15 [facility] Work Phone: Erythrocyte sedimentation ra ashlie 05-12-2022 ESR (Bld) [Velocity] 6 mm/h 0-30 [facility] Work Phone: Serum nuclear antibody titer by immunofluorescenceon 05-12-2022 Nuclear Ab IF (S) [Titer] See comment [facility] Work Phone: Comment on above: TEST RESULT LIMITSAn tinuclear Antibodies, IFA Positive Abnormal Negative <1:80 Borderline 1:80 Positive >1:80Spindle Apparatus Pattern 1:80 ICAP nomenclature: [id number]:For more information about Hep-2 cell patterns useANApatterns.org, the official website for the InternationalConsensus on Antinuclear Antibody (ALECIA) Patterns (ICAP). ----A positive ALECIA result may occur in healthy individuals (lowtiter) or be associated with a variety of diseases. Seeinterpretation chart which is not all inclusive:Pattern Antigen Detected Suggested Disease Association Homogeneous DNA(ds,ss), SLE - High titers Nucleosomes, Histones Drug-induced SLE Speckled Sm, FISH DRIER, SCL-70, SLE,MCTD,PSS (diffuse form), SS-A/SS-B Sjogrens Nucleolar SCL-70, PM-1/SCL High titers Scleroderma, PM/DM Centromere Centromere PSS (limited form) w/Crest syndrome variable Nuclear Dot [id number] Primary Biliary Cirrhosis Nuclear GP210, Primary Biliary CirrhosisMembrane susana A,B,C TESTING PERFORMED AT [facility]. ORIGINAL REPORT ON FILE IN LAB CONTAINS ADDITIONAL TEST SITE INFORMATION. Serum or plasma C reactive p rotein measurement (mass/volume)on 05-12-2022 CRP [Mass/Vol] mg/L 0.0-3.0 [facility] Work Phone: Comment on above: C-Reactive Protein ( CRP) provides useful information for thediagnosis, therapy and monitoring of inflammatory processesand associated diseases. For the evaluation of Relative Riskfor Cardiovascular Disease, a High Sensitivity CRP (HSCRP)should be ordered. Serum or plasma uric acid me asurement (mass/volume)on 05-12-2022 Urate [Mass/Vol] 3.1 mg/dL 2.6-6.0 [facility] Work Phone: Comment on above: The drugs N-Acetylcy steine and Metamizole may falsely depress this assay. Serum rheumatoid factor dete ctionon 05-12-2022 Rheumatoid factor Ql (S) < 10.0 IU/mL <15 [facility] Work Phone: Thin prep Papanicolaou smear with manual screeningon 05-12-2022 Thin prep Papanicolaou smear with manual screening Negative . [facility] Work Phone: Comment on above: HLA-B*27 UnkeuncsP94 allele interpretation for all loci based on IMGT/HLAdatabase version 3.44This test was developed and its performance characteristicsdetermined by [facility]. It has not been cleared or approvedby the Food and Drug Administration.[facility] CLIA ID Number [id number] test was performed using PCR (Polymerase ChainReaction)/SSOP (Sequence Specific Oligonucleotide Probes)technique. SBT (Sequence Based Typing) and/or SSP(Sequence Specific Primers) may be used as supplementalmethods when necessary. Please contact [facility] CustomerService at if you have any questions. Director of [facility] Dr Jay Hobbs, PhDPerformed at: [address] [place], [place] [address] [place], [place] [id number] Director: Jay Hobbs PhD, Phone: [phone] Laboratory - Chemistry and C hemistry - challengeon 01-29-2022 Natriuretic peptide B (Bld) [Mass/Vol] 11.7 pg/mL 0-100 [facility] Work Phone: Basic Metabolic Panelon 10-18 Calcium [Mass/Vol] 9.4 mg/dL Normal 8.4-10.4 [facility] Comment on above: Performed By: #### B MP3, HEMOG #### [facility] [address] [place] [address] Glucose [Mass/Vol] 86 mg/dL Normal 70-100 [facility] Comment on above: Performed By: #### B MP3, HEMOG #### [facility] [address] [place] [address] Urea nitrogen [Mass/Vol] 15 mg/dL Normal 9-20 [facility] Comment on above: Performed By: #### B MP3, HEMOG #### [facility] [address] [place] [address] Anion gap [Moles/Vol] 7 mmol/L Normal 3-13 [facility] Comment on above: Performed By: #### B MP3, HEMOG #### [facility] [address], [place] CO2 [Moles/Vol] 28 mmol/L Normal 22-30 [facility] Comment on above: Performed By: #### B MP3, HEMOG #### [facility] [address], [place] Creatinine [Mass/Vol] 0.75 mg/dL Normal 0.52-1.25 [facility] Comment on above: Performed By: #### B MP3, HEMOG #### [facility] [address], [place] GFR/1.73 sq M.predicted among blacks MDRD (S/P/Bld) [Vol rate/Area] mL/min/{1.73_m2} Normal >60 [facility] Comment on above: Performed By: #### B MP3, HEMOG #### [place] [address] [address], [place] GFR/1.73 sq M.predicted among non-blacks MDRD (S/P/Bld) [Vol rate/Area] 79.8 mL/min/{1.73_m2} Normal >60 [facility] Comment on above: Result Comment: KDIG O guidelines provide the following GFR categories: Stage GFR(ml/min/1.73 m2) Terms G1 >=90 Normal or high G2 60-89 Mildly decreased* G3a 45-59 Mildly to moderately decreased G3b 30-44 Moderately to severely decreased G4 15-29 Severely decreased G5 <15 Kidney failure *Relative to young adult level. In the absence of evidence of kidney damage, neither GFR category G1 nor G2 fulfill the criteria for CKD. The CKD-EPI equation is validated in individuals 18 years of age and older. Currently the best equation for estimating glomerular filtration rate (GFR) from serum creatinine in children is the Bedside Banks equation. It is less accurate in patients with extremes of muscle mass, restriction of dietary protein, ingestion of creatine, extra-renal metabolism of creatinine, or treatment with medications that affect renal tubular creatinine secretion. Performed By: #### B MP3, HEMOG #### [facility] [address], [place] Chloride [Moles/Vol] 104 mmol/L Normal 98-107 [facility] Comment on above: Performed By: #### B MP3, HEMOG #### [facility] [address] [place] [address] Potassium [Moles/Vol] 4.3 mmol/L Normal 3.5-5.1 [facility] Comment on above: Performed By: #### B MP3, HEMOG #### [facility] [address] [place] [address] Sodium [Moles/Vol] 139 mmol/L Normal 135-145 [facility] Comment on above: Performed By: #### B MP3, HEMOG #### [facility] [address], [place] Echo Complete w/wo Contrasto n 10-30-2021 Echo Complete w/wo Contrast Patient Name: ARELI CHEEK Ultrasound ACCESSION EXAM DATE/TIME PROCEDURE ORDERING PROVIDER [id number] 10/30/2021 10:51 EST Echo Complete w/wo TERESA TURNER, JOHN Contrast Reason For Exam (Echo Complete w/wo Contrast) one year TAVR follow up Report TRANSTHORACIC ECHOCARDIOGRAM PATIENT: Areli Cheek STUDY DATE: 10/30/2021 : 1950 AGE: 71 HT/WT: 165.1 cm (65 72.6 kg in) (159.7 lb) GENDER: F BP: 130 / 60 LOCATION: [place] [address] [facility] STATUS: *ORDERING PHYSICIAN: * Dewayne, *FELLOW: * Nancy Anderson MD *READING PHYSICIAN: * Concepcion, *NURSING AGENCY MANAGER: * MD JENNIFER Meeks INDICATIONS: ONE YEAR POST TAVR. CONCLUSIONS SUMMARY: 1. Aortic valve: There is a well-seated, normally functioning 26-mm Samuels Eduardo 3 Ultra bioprosthetic valve. There is no regurgitation. There is no perivalvular regurgitation. The peak systolic velocity is 1.4 m/sec. The mean systolic gradient is 5 mm Hg. Dimensionless index: 0.64. The valve area by the velocity-time integral method is 1.8 cm^2. 2. Left ventricle: Average LV global longitudinal strain is -20. The cavity size is normal. Wall thickness is mildly increased. Left ventricular geometry shows evidence of concentric remodeling. Systolic function is normal by visual assessment. The estimated ejection fraction is 65%. There are no regional wall motion abnormalities. Left ventricular diastolic function parameters are normal. 3. Right ventricle: The cavity size is normal. Systolic function is normal. 4. Compared to last study from 11/27/20, there is no significant difference in the doppler parameters of the bioprosthetic aortic valve. STUDY DATA: Complete transthoracic echocardiogram. Procedure: Image quality was good. M-mode, complete 2D, strain rate, complete spectral Doppler, and color flow Doppler images were acquired and archived for Ultrasound Report permanent storage and are available for subsequent review. Study status: Routine. Patient status: Outpatient. ECG RHYTHM: NSR FINDINGS LEFT VENTRICLE: Average LV global longitudinal strain is -20. The cavity size is normal. Wall thickness is mildly increased. Left ventricular geometry shows evidence of concentric remodeling. Systolic function is normal by visual assessment. The estimated ejection fraction is 65%. There are no regional wall motion abnormalities. Left ventricular diastolic function parameters are normal. E/e' average: 12.1 RIGHT VENTRICLE: The cavity size is normal. Systolic function is normal. Systolic pressure is not estimated. VENTRICULAR SEPTUM: There is no evidence of a ventricular septal defect. LEFT ATRIUM: The atrium is normal in size. RIGHT ATRIUM: The atrium is normal in size. ATRIAL SEPTUM: Color Doppler shows no shunt. MITRAL VALVE: Mildly thickened, mildly calcified leaflets. Doppler: There is no evidence for stenosis. There is mild, 1+ regurgitation. The peak diastolic gradient is 3 mm Hg. AORTIC VALVE: There is a well-seated, normally functioning 26-mm Samuels Eduardo 3 Ultra bioprosthetic valve. Normal-sized annulus. Doppler: There is no regurgitation. There is no perivalvular regurgitation. Dimensionless index: 0.64. The valve area by the velocity-time integral method is 1.8 cm^2. The valve area index by the velocity-time integral method is 1 cm^2/m^2. The mean systolic gradient is 5 mm Hg. The peak systolic gradient is 8 mm Hg. The peak systolic velocity is 1.4 m/sec. TRICUSPID VALVE: Structurally normal valve. Doppler: There is trivial, less than 1+ regurgitation. PULMONIC VALVE: Structurally normal valve. Doppler: There is trivial, less than 1+ regurgitation. AORTA: The aorta is well visualized, normal, and normal size. PULMONARY ARTERY: Main pulmonary artery: Normal. PERICARDIUM: There is no pericardial effusion. SYSTEMIC VEINS: Well visualized. Inferior vena cava: The vessel is normal. The IVC collapses by greater than 50% with inspiration, consistent with normal central venous pressure. Measurements Value 11/27/2020 Reference Aortic root ID 2.3 cm <4.0 Aortic root ID, STJ, ED 2.3 cm 2.0 - 3.2 Aortic root ID/bsa, STJ, 1.3 cm/m^2 1.1 - 1.9 ED Value 11/27/2020 Reference Ascending aorta ID 3.1 cm 1.9 - 3.5 Ascending aorta ID/bsa, 1.7 cm/m^2 1.0 - 2.2 A-P Left ventricle Value 11/27/2020 Reference GLS, 2D 19.97 % ---- (more content not included)... Normal [facility] Hemogramon 10-30-2021 Erythrocyte distribution width (RBC) [Ratio] 14.1 % Normal 11.5-14.5 [facility] Comment on above: Performed By: #### B MP3, HEMOG #### [facility] [address], [place] Hematocrit (Bld) [Volume fraction] 41.3 % Normal 35.0-47.0 [facility] Comment on above: Performed By: #### B MP3, HEMOG #### [facility] [address], [place] Hemoglobin (Bld) [Mass/Vol] 13.5 g/dL Normal 11.7-16.0 [facility] Comment on above: Performed By: #### B MP3, HEMOG #### [facility] [address], [place] MCH (RBC) [Entitic mass] 29.6 pg Normal 26.0-34.0 [facility] Comment on above: Performed By: #### B MP3, HEMOG #### [facility] [address], [place] MCHC 32.8 % Normal 32.0-36.0 [facility] Comment on above: Performed By: #### B MP3, HEMOG #### [facility] [address], [place] MCV (RBC) [Entitic vol] 90.3 fL Normal 79.0-98.0 [facility] Comment on above: Performed By: #### B MP3, HEMOG #### [facility] [address], [place] Platelet mean volume (Bld) [Entitic vol] 9.6 fL Normal 7.4-10.4 [facility] Comment on above: Performed By: #### B MP3, HEMOG #### [facility] [address], [place] Platelets (Bld) [#/Vol] 258 10*3/uL Normal 140-440 [facility] Comment on above: Performed By: #### B MP3, HEMOG #### [place] [address] [address], [place] RBC (Bld) [#/Vol] 4.57 10*6/uL Normal 3.80-5.20 [facility] Comment on above: Performed By: #### B MP3, HEMOG #### [place] [address] [address] [place], [place] WBC (Bld) [#/Vol] 6.5 10*3/uL Normal 3.6-10.7 [facility] Comment on above: Performed By: #### B MP3, HEMOG #### [place] [address] [place], [place] Basic Metabolic Panelon 11-18 Calcium [Mass/Vol] 9.1 mg/dL Normal 8.4-10.4 [facility] Comment on above: Performed By: #### B MP3, HEMOG #### [place] [address] [address] [place], [place] Glucose [Mass/Vol] 95 mg/dL Normal 70-100 [facility] Comment on above: Performed By: #### B MP3, HEMOG #### [place] [address] [address] [place], [place] Urea nitrogen [Mass/Vol] 28 mg/dL High 7-20 [facility] Comment on above: Performed By: #### B MP3, HEMOG #### [place] [address] [address] [place], [place] Anion Gap 8 Normal [facility] Comment on above: Performed By: #### B MP3, HEMOG #### [facility] [address], [place] CO2 [Moles/Vol] 29 mmol/L Normal 22-30 [facility] Comment on above: Performed By: #### B MP3, HEMOG #### [facility] [address] [place], [place] Creatinine [Mass/Vol] 0.68 mg/dL Normal 0.52-1.25 [facility] Comment on above: Performed By: #### B MP3, HEMOG #### [place] [address] [place], [place] GFR/1.73 sq M.predicted among blacks MDRD (S/P/Bld) [Vol rate/Area] mL/min/{1.73_m2} Normal >60 [facility] Comment on above: Performed By: #### B MP3, HEMOG #### [place] [address] [place], [place] GFR/1.73 sq M.predicted among non-blacks MDRD (S/P/Bld) [Vol rate/Area] 88.1 mL/min/{1.73_m2} Normal >60 [facility] Comment on above: Result Comment: KDIG O guidelines provide the following GFR categories: Stage GFR(ml/min/1.73 m2) Terms G1 >=90 Normal or high G2 60-89 Mildly decreased* G3a 45-59 Mildly to moderately decreased G3b 30-44 Moderately to severely decreased G4 15-29 Severely decreased G5 <15 Kidney failure *Relative to young adult level. In the absence of evidence of kidney damage, neither GFR category G1 nor G2 fulfill the criteria for CKD. The CKD-EPI equation is validated in individuals 18 years of age and older. Currently the best equation for estimating glomerular filtration rate (GFR) from serum creatinine in children is the Bedside Banks equation. It is less accurate in patients with extremes of muscle mass, restriction of dietary protein, ingestion of creatine, extra-renal metabolism of creatinine, or treatment with medications that affect renal tubular creatinine secretion. Performed By: #### B MP3, HEMOG #### [place] [address] [place] [address] Potassium [Moles/Vol] 4.0 mmol/L Normal 3.5-5.1 [facility] Comment on above: Performed By: #### B MP3, HEMOG #### [facility] [address] [place] [address] Chloride [Moles/Vol] 103 mmol/L Normal 98-107 [facility] Comment on above: Performed By: #### B MP3, HEMOG #### [facility] [address] [place] [address] Sodium [Moles/Vol] 140 mmol/L Normal 135-145 [facility] Comment on above: Performed By: #### B MP3, HEMOG #### [facility] [address] [place] [address] Anion gap [Moles/Vol] 8 mmol/L [facility] Work Phone: Calcium [Mass/Vol] 9.1 mg/dL 8.4 - 10. 4 mg/dL [facility] Work Phone: Chloride [Moles/Vol] 103 mmol/L 98 - 10 7 mmol/L [facility] Work Phone: CO2 [Moles/Vol] 29 mmol/L 22 - 30 mmol/L [facility] Work Phone: Creatinine [Mass/Vol] 0.68 mg/dL 0.52 - 1.25 mg/dL [facility] Work Phone: EGFR IF NonAfrican Fijian 88.1 mL/min >[address] [facility] Work Phone: Comment on above: KDIGO guidelines pro vide the following GFR categories: Stage GFR(ml/min/1.73 m2) Terms G1 >=90 Normal or high G2 60-89 Mildly decreased* G3a 45-59 Mildly to moderately decreased G3b 30-44 Moderately to severely decreased G4 15-29 Severely decreased G5 <15 Kidney failure *Relative to young adult level. In the absence of evidence of kidney damage, neither GFR category G1 nor G2 fulfill the criteria for CKD. The CKD-EPI equation is validated in individuals 18 years of age and older. Currently the best equation for estimating glomerular filtration rate (GFR) from serum creatinine in children is the Bedside Banks equation. It is less accurate in patients with extremes of muscle mass, restriction of dietary protein, ingestion of creatine, extra-renal metabolism of creatinine, or treatment with medications that affect renal tubular creatinine secretion. GFR/1.73 sq M predicted among blacks MDRD (S/P/Bld) [Vol rate/Area] mL/min/{1.73_m2} >60 mL/min [facility] Work Phone: [phone] Glucose [Mass/Vol] 95 mg/dL 70 - 100 mg/dL [facility] Work Phone: [phone] Interpretation and review of laboratory results Abnormal [facility] Work Phone: [phone] Potassium [Moles/Vol] 4.0 mmol/L 3.5 - 5.1 mmol/L [facility] Work Phone: [phone] Sodium [Moles/Vol] 140 mmol/L 135 - 145 mmol/L [facility] Work Phone: [phone] Urea nitrogen [Mass/Vol] 28 mg/dL High 7 - 20 mg/dL [facility] Work Phone: [phone] Test Performed by [facility], [address] [place] [id number] [place] [address] Work Phone: [phone] CBCon 11-27-2020 Erythrocyte distribution width (RBC) [Ratio] 14.4 % 11.5 - 14.5 % [facility] Work Phone: [phone] Hematocrit (Bld) [Volume fraction] 39.9 % 35 - 47 % [facility] Work Phone: [phone] Hemoglobin (Bld) [Mass/Vol] 13.3 g/dL 11.7 - 16 g/dL [facility] Work Phone: [phone] MCH (RBC) [Entitic mass] 30.4 pg 26 - 34 pg [facility] Work Phone: [phone] MCHC (RBC) [Mass/Vol] 33.3 % 32 - 36 % [facility] Work Phone: [phone] MCV (RBC) [Entitic vol] 91.5 fL 79 - 98 fL [facility] Work Phone: [phone] Platelet mean volume (Bld) [Entitic vol] 9.7 fL 7.4 - 10.4 fL [employer] Work Phone: Platelets (Bld) [#/Vol] 199 10*3/uL 140 - 440 10*3/uL [employer] Work Phone: RBC (Bld) [#/Vol] 4.36 10*6/uL 3.8 - 5.2 10*6/uL [employer] Work Phone: WBC (Bld) [#/Vol] 6.3 10*3/uL 3.6 - 10.7 10*3/uL [employer] Work Phone: Test Performed by [facility] [employer], [address] [place] [id number] [employer] Work Phone: ECHO Complete 2D W Doppler W Coloron 11-27-2020 TRANSTHORACIC ECHOCARDIOGRAM PATIENT: Areli Cheek STUDY DATE: 11/27/2020 : 1950 AGE: 70 HT/WT: 165.1 cm (65 71.7 kg in) (157.7 lb) GENDER: F BP: 122 / 66 LOCATION: [employer] PATIENT Outpatient [address] STATUS: *ORDERING PHYSICIAN: * John Turner *FELLOW: Chun Fields *READING PHYSICIAN: * Tj Davison, *NURSING AGENCY MANAGER: * Sharmila RODRIGUEZ MD INDICATIONS: One month post TAVR. HISTORY: Transthoracic echocardiography (10/31/2020). 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 CONCLUSIONS SUMMARY: 1. Aortic valve: There is a well-seated, normally functioning 26 mm Samuels Eduardo 3 Ultra bioprosthetic valve. There is no significant regurgitation. There is trivial perivalvular regurgitation. The peak systolic velocity is 1.6 m/sec. The mean systolic gradient is 5 mm Hg. Dimensionless index: 0.77. The valve area by the velocity-time integral method is 2.6 cm^2. The valve area index by the velocity-time integral method is 1.4 cm^2/m^2. Acceleration time is 59 ms. 2. Left ventricle: There is moderate concentric hypertrophy. Systolic function is normal by the biplane method of disks. The estimated ejection fraction is 61%. There are no regional wall motion abnormalities. 3. Right ventricle: The cavity size is normal. Systolic function is normal. 4. Left atrium: The atrium is moderately dilated. 5. No other significant valve disease. 6. Compared with immediate post procedure study 10/31/20, there is no significant difference in the doppler paramaters across the bioprosthetic aortic valve. STUDY DATA: Complete transthoracic echocardiogram. Procedure: Image quality was adequate. M-mode, complete 2D, complete spectral Doppler, and color flow Doppler images were acquired and archived for permanent storage and are available for subsequent review. Study status: Routine. Patient status: Outpatient. ECG RHYTHM: NSR FINDINGS LEFT VENTRICLE: The cavity size is normal. Wall thickness is moderately increased. There is moderate concentric hypertrophy. RWT = 0.74. Systolic function is normal by the biplane method of disks. The estimated ejection fraction is 61%. There are no regional wall motion abnormalities. Left ventricular diastolic function parameters are normal. E/e' average: 10.7 RIGHT VENTRICLE: The cavity size is normal. Systolic function is normal. Right ventricular systolic pressure is mildly increased. VENTRICULAR SEPTUM: The septum is normal. LEFT ATRIUM: The atrium is moderately dilated. RIGHT ATRIUM: The atrium is normal in size. ATRIAL SEPTUM: The interatrial septum is normal. Doppler shows no shunt. MITRAL VALVE: Normal (thickness) leaflets. Doppler: There is trivial, less than 1+ regurgitation. The peak diastolic gradient is 2 mm Hg. AORTIC VALVE: There is a well-seated, normally functioning 26 mm Samuels Eduardo 3 Ultra bioprosthetic valve. Normal thickness leaflets. Doppler: There is no significant regurgitation. There is trivial perivalvular regurgitation. Dimensionless index: 0.77. The valve area by the velocity-time integral method is 2.6 cm^2. The valve area index by the velocity-time integral method is 1.4 cm^2/m^2. The mean systolic gradient is 5 mm Hg. The peak systolic gradient is 10 mm Hg. The peak systolic velocity is 1.6 m/sec. TRICUSPID VALVE: Structurally normal valve. Doppler: There is trivial, less than 1+ regurgitation. PULMONIC VALVE: Structurally normal valve. Doppler: There is trivial, less than 1+ regurgitation. AORTA: Aortic root: The aortic root is normal in size. Ascending aorta: The ascending aorta is normal in size. PERICARDIUM: There is no pericardial effusion. SYSTEMIC VEINS: Inferior vena cava: The vessel is mildly dilated. The IVC collapses by greater than 50% with inspiration. Measurements Value 10/31/2020 Reference Ascending aorta ID, A-P, 3.4 cm 2.6 S Ascending aorta ID/bsa, 1.9 cm/m^2 1.5 A-P, S Left ventricle Value 10/31/2020 Reference LV ID, ED 3.8 cm 4.0 3.8 - 5.2 LV ID, ES 2.7 cm 2.4 2.2 - 3.5 LV ID/bsa, ED (L) 2.1 cm/m^2 2.2 2.3 - 3.1 LV ID/bsa, ES 1.5 cm/m^2 1.4 1.3 - 2.1 LV PW thickness, ED (H) 1.4 cm 1.2 0.6 - 0.9 LV PW/LV ID ratio, ED 0.37 0.29 LV wall mass (H) 203 g 190 66 - 150 LV wall mass/bsa (H) 111 g/m^2 107 44 - 88 LV E/e', lateral 10 12.8 LV E/e', medial 11.6 15 LV E/e', average 10.7 13.8 Ventricular septum Value 10/31/2020 Reference IVS thickness, ED (H) 1.4 cm 1.5 0.6 - 0.9 LVOT Value 10/31/2020 Reference LVOT ID, A-P 2.0 cm 2.0 LVOT mean velocity, S 0.8 m/sec 0.7 LVOT peak gradient, S 6 mm Hg 4 Stroke volume (SV), LVOT 85 ml 74 DP Stroke index (SV/bsa), 46 ml/m^2 42 LVOT DP Aortic valve Value 10/31/2020 Reference Aortic valve peak 1.6 m/sec 2.4 velocity, S Aortic valve mean 1 m/sec 1.4 velocity, S Aortic mean gradient, S 5 mm Hg 10 Aortic peak gradient, S 10 mm Hg 23 DI 0.77 0.53 Aortic valve area, VTI 2.6 cm^2 1.8 Aortic valve area/bsa, 1.4 cm^2/m^2 1 VTI Left atrium Value 10/31/2020 Reference LA volume/bsa, ES, 2-p (H) 42 ml/m^2 31 16 - 34 Mitral valve Value 10/31/2020 Reference Mitral E-wave peak 0.8 m/sec 0.9 velocity Mitral A-wave peak 1 m/sec 1.2 velocity Mitral deceleration time 324 ms 311 Mitral peak gradient, D 2 mm Hg 3 Mitral E/A ratio, peak 0.8 0.8 Tricuspid valve Value 10/31/2020 Reference Tricuspid regurg peak 2.4 m/sec <=2.8 velocity Tricuspid peak RV-RA 23 mm Hg gradient Right atrium Value 10/31/2020 Reference RA area, ES, A4C 17 cm^2 15 10 - 18 Systemic veins Value 10/31/2020 Reference Estimated RAP 8 mm Hg Right ventricle Value 10/31/2020 Reference RV ID, minor axis, ED, 3.4 cm 2.5 - 4.1 A4C base RV ID, minor axis, ED, 2.5 cm 2.6 1.9 - 3.5 A4C mid RV pressure, S, DP 31 mm Hg RV s', lateral (H) 14.2 cm/sec 6.0 - 13.4 Legend: (L) and (H) alison values outside specified reference range. Electronically signed by Tj Davison MD 11/27/2020 17:05 Prior Signatures: [employer] Work Phone: [facility], [employer] Incoming Cardiology Results From Selene/Neisha - 11/27/2020 5:05 PM EST TRANSTHORACIC ECHOCARDIOGRAM PATIENT: Areli Cheek STUDY DATE: 11/27/2020 : 1950 AGE: 70 HT/WT: 165.1 cm (65 71.7 kg in) (157.7 lb) GENDER: F BP: 122 / 66 LOCATION: [employer] PATIENT Outpatient [facility] STATUS: *ORDERING PHYSICIAN: * John Turner *FELLOW: * Chun Lancaster *READING PHYSICIAN: * Tj Davison, *NURSING AGENCY MANAGER: * Sharmila RODRIGUEZ MD INDICATIONS: One month post TAVR. HISTORY: Transthoracic echocardiography (10/31/2020). 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 CONCLUSIONS SUMMARY: 1. Aortic valve: There is a well-seated, normally functioning 26 mm Samuels Eduardo 3 Ultra bioprosthetic valve. There is no significant regurgitation. There is trivial perivalvular regurgitation. The peak systolic velocity is 1.6 m/sec. The mean systolic gradient is 5 mm Hg. Dimensionless index: 0.77. The valve area by the velocity-time integral method is 2.6 cm^2. The valve area index by the velocity-time integral method is 1.4 cm^2/m^2. Acceleration time is 59 ms. 2. Left ventricle: There is moderate concentric hypertrophy. Systolic function is normal by the biplane method of disks. The estimated ejection fraction is 61%. There are no regional wall motion abnormalities. 3. Right ventricle: The cavity size is normal. Systolic function is normal. 4. Left atrium: The atrium is moderately dilated. 5. No other significant valve disease. 6. Compared with immediate post procedure study 10/31/20, there is no significant difference in the doppler paramaters across the bioprosthetic aortic valve. STUDY DATA: Complete transthoracic echocardiogram. Procedure: Image quality was adequate. M-mode, complete 2D, complete spectral Doppler, and color flow Doppler images were acquired and archived for permanent storage and are available for subsequent review. Study status: Routine. Patient status: Outpatient. ECG RHYTHM: NSR FINDINGS LEFT VENTRICLE: The cavity size is normal. Wall thickness is moderately increased. There is moderate concentric hypertrophy. RWT = 0.74. Systolic function is normal by the biplane method of disks. The estimated ejection fraction is 61%. There are no regional wall motion abnormalities. Left ventricular diastolic function parameters are normal. E/e' average: 10.7 RIGHT VENTRICLE: The cavity size is normal. Systolic function is normal. Right ventricular systolic pressure is mildly increased. VENTRICULAR SEPTUM: The septum is normal. LEFT ATRIUM: The atrium is moderately dilated. RIGHT ATRIUM: The atrium is normal in size. ATRIAL SEPTUM: The interatrial septum is normal. Doppler shows no shunt. MITRAL VALVE: Normal (thickness) leaflets. Doppler: There is trivial, less than 1+ regurgitation. The peak diastolic gradient is 2 mm Hg. AORTIC VALVE: There is a well-seated, normally functioning 26 mm Samuels Eduardo 3 Ultra bioprosthetic valve. Normal thickness leaflets. Doppler: There is no significant regurgitation. There is trivial perivalvular regurgitation. Dimensionless index: 0.77. The valve area by the velocity-time integral method is 2.6 cm^2. The valve area index by the velocity-time integral method is 1.4 cm^2/m^2. The mean systolic gradient is 5 mm Hg. The peak systolic gradient is 10 mm Hg. The peak systolic velocity is 1.6 m/sec. TRICUSPID VALVE: Structurally normal valve. Doppler: There is trivial, less than 1+ regurgitation. PULMONIC VALVE: Structurally normal valve. Doppler: There is trivial, less than 1+ regurgitation. AORTA: Aortic root: The aortic root is normal in size. Ascending aorta: The ascending aorta is normal in size. PERICARDIUM: There is no pericardial effusion. SYSTEMIC VEINS: Inferior vena cava: The vessel is mildly dilated. The IVC collapses by greater than 50% with inspiration. Measurements Value 10/31/2020 Reference Ascending aorta ID, A-P, 3.4 cm 2.6 S Ascending aorta ID/bsa, 1.9 cm/m^2 1.5 A-P, S Left ventricle Value 10/31/2020 Reference LV ID, ED 3.8 cm 4.0 3.8 - 5.2 LV ID, ES 2.7 cm 2.4 2.2 - 3.5 LV ID/bsa, ED (L) 2.1 cm/m^2 2.2 2.3 - 3.1 LV ID/bsa, ES 1.5 cm/m^2 1.4 1.3 - 2.1 LV PW thickness, ED (H) 1.4 cm 1.2 0.6 - 0.9 LV PW/LV ID ratio, ED 0.37 0.29 LV wall mass (H) 203 g 190 66 - 150 LV wall mass/bsa (H) 111 g/m^2 107 44 - 88 LV E/e', lateral 10 12.8 LV E/e', medial 11.6 15 LV E/e', average 10.7 13.8 Ventricular septum Value 10/31/2020 Reference IVS thickness, ED (H) 1.4 cm 1.5 0.6 - 0.9 LVOT Value 10/31/2020 Reference LVOT ID, A-P 2.0 cm 2.0 LVOT mean velocity, S 0.8 m/sec 0.7 LVOT peak gradient, S 6 mm Hg 4 Stroke volume (SV), LVOT 85 ml 74 DP Stroke index (SV/bsa), 46 ml/m^2 42 LVOT DP Aortic valve Value 10/31/2020 Reference Aortic valve peak 1.6 m/sec 2.4 velocity, S Aortic valve mean 1 m/sec 1.4 velocity, S Aortic mean gradient, S 5 mm Hg 10 Aortic peak gradient, S 10 mm Hg 23 DI 0.77 0.53 Aortic valve area, VTI 2.6 cm^2 1.8 Aortic valve area/bsa, 1.4 cm^2/m^2 1 VTI Left atrium Value 10/31/2020 Reference LA volume/bsa, ES, 2-p (H) 42 ml/m^2 31 16 - 34 Mitral valve Value 10/31/2020 Reference Mitral E-wave peak 0.8 m/sec 0.9 velocity Mitral A-wave peak 1 m/sec 1.2 velocity Mitral deceleration time 324 ms 311 Mitral peak gradient, D 2 mm Hg 3 Mitral E/A ratio, peak 0.8 0.8 Tricuspid valve Value 10/31/2020 Reference Tricuspid regurg peak 2.4 m/sec <=2.8 velocity Tricuspid peak RV-RA 23 mm Hg gradient Right atrium Value 10/31/2020 Reference RA area, ES, A4C 17 cm^2 15 10 - 18 Systemic veins Value 10/31/2020 Reference Estimated RAP 8 mm Hg Right ventricle Value 10/31/2020 Reference RV ID, minor axis, ED, 3.4 cm 2.5 - 4.1 A4C base RV ID, minor axis, ED, 2.5 cm 2.6 1.9 - 3.5 A4C mid RV pressure, S, DP 31 mm Hg RV s', lateral (H) 14.2 cm/sec 6.0 - 13.4 Legend: (L) and (H) alison values outside specified reference range. Electronically signed by Tj Davison MD 11/27/2020 17:05 Prior Signatures: [employer] Work Phone: Echo Complete w/wo Contrasto n 11-27-2020 Echo Complete w/wo Contrast Patient Name: ARELI CHEEK Ultrasound ACCESSION EXAM DATE/TIME PROCEDURE ORDERING PROVIDER [id number] 11/27/2020 14:51 EST Echo Complete w/wo TERESA TURNER MICHELLE Contrast Reason For Exam (Echo Complete w/wo Contrast) 1 month post TAVR Report TRANSTHORACIC ECHOCARDIOGRAM PATIENT: Areli Cheek STUDY DATE: 11/27/2020 : 1950 AGE: 70 HT/WT: 165.1 cm (65 71.7 kg in) (157.7 lb) GENDER: F BP: 122 / 66 LOCATION: [place] [address] [address] STATUS: *ORDERING PHYSICIAN: * John Turner *FELLOW: * Chun Lancaster *READING PHYSICIAN: * Tj Davison, *NURSING AGENCY MANAGER: * Sharmila RODRIGUEZ MD INDICATIONS: One month post TAVR. HISTORY: Transthoracic echocardiography (10/31/2020). 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 CONCLUSIONS SUMMARY: 1. Aortic valve: There is a well-seated, normally functioning 26 mm Samuels Eduardo 3 Ultra bioprosthetic valve. There is no significant regurgitation. There is trivial perivalvular regurgitation. The peak systolic velocity is 1.6 m/sec. The mean systolic gradient is 5 mm Hg. Dimensionless index: 0.77. The valve area by the velocity-time integral method is 2.6 cm^2. The valve area index by the velocity-time integral method is 1.4 cm^2/m^2. Acceleration time is 59 ms. 2. Left ventricle: There is moderate concentric hypertrophy. Systolic function is normal by the biplane method of disks. The estimated ejection fraction is 61%. There are no regional wall motion abnormalities. 3. Right ventricle: The cavity size is normal. Systolic function is normal. 4. Left atrium: The atrium is moderately dilated. 5. No other significant valve disease. 6. Compared with immediate post procedure study 10/31/20, there is no significant difference in the doppler paramaters across the bioprosthetic aortic valve. Ultrasound Report STUDY DATA: Complete transthoracic echocardiogram. Procedure: Image quality was adequate. M-mode, complete 2D, complete spectral Doppler, and color flow Doppler images were acquired and archived for permanent storage and are available for subsequent review. Study status: Routine. Patient status: Outpatient. ECG RHYTHM: NSR FINDINGS LEFT VENTRICLE: The cavity size is normal. Wall thickness is moderately increased. There is moderate concentric hypertrophy. RWT = 0.74. Systolic function is normal by the biplane method of disks. The estimated ejection fraction is 61%. There are no regional wall motion abnormalities. Left ventricular diastolic function parameters are normal. E/e' average: 10.7 RIGHT VENTRICLE: The cavity size is normal. Systolic function is normal. Right ventricular systolic pressure is mildly increased. VENTRICULAR SEPTUM: The septum is normal. LEFT ATRIUM: The atrium is moderately dilated. RIGHT ATRIUM: The atrium is normal in size. ATRIAL SEPTUM: The interatrial septum is normal. Doppler shows no shunt. MITRAL VALVE: Normal (thickness) leaflets. Doppler: There is trivial, less than 1+ regurgitation. The peak diastolic gradient is 2 mm Hg. AORTIC VALVE: There is a well-seated, normally functioning 26 mm Samuels Eduardo 3 Ultra bioprosthetic valve. Normal thickness leaflets. Doppler: There is no significant regurgitation. There is trivial perivalvular regurgitation. Dimensionless index: 0.77. The valve area by the velocity-time integral method is 2.6 cm^2. The valve area index by the velocity-time integral method is 1.4 cm^2/m^2. The mean systolic gradient is 5 mm Hg. The peak systolic gradient is 10 mm Hg. The peak systolic velocity is 1.6 m/sec. TRICUSPID VALVE: Structurally normal valve. Doppler: There is trivial, less than 1+ regurgitation. PULMONIC VALVE: Structurally normal valve. Doppler: There is trivial, less than 1+ regurgitation. AORTA: Aortic root: The aortic root is normal in size. Ascending aorta: The ascending aorta is normal in size. PERICARDIUM: There is no pericardial effusion. SYSTEMIC VEINS: Inferior vena cava: The vessel is mildly dilated. The IVC collapses by greater than 50% with inspiration. Measurements Value 10/31/2020 Reference Ascending aorta ID, A-P, 3.4 cm 2.6 S Ascending aorta ID/bsa, 1.9 cm/m^2 1.5 A-P, S Left ventricle Value 10/31/2020 Reference LV ID, ED 3.8 cm 4.0 3.8 - 5.2 LV ID, ES 2.7 cm 2.4 2.2 - 3.5 LV ID/bsa, ED (L) 2.1 cm/m^2 2.2 2.3 (more content not included)... Normal [facility] Hemogramon 11-27-2020 Erythrocyte distribution width (RBC) [Ratio] 14.4 % Normal 11.5-14.5 [facility] Comment on above: Performed By: #### B MP3, HEMOG #### [place] [address] [address] [place], [place] Hematocrit (Bld) [Volume fraction] 39.9 % Normal 35.0-47.0 [facility] Comment on above: Performed By: #### B MP3, HEMOG #### [place] [address] [address] [place], [place] Hemoglobin (Bld) [Mass/Vol] 13.3 g/dL Normal 11.7-16.0 [facility] Comment on above: Performed By: #### B MP3, HEMOG #### [place] [address] [address] [place], [place] MCH (RBC) [Entitic mass] 30.4 pg Normal 26.0-34.0 [facility] Comment on above: Performed By: #### B MP3, HEMOG #### [place] [address] [address] [place], [place] MCHC 33.3 % Normal 32.0-36.0 [facility] Comment on above: Performed By: #### B MP3, HEMOG #### [place] [address] [address] [place], [place] MCV (RBC) [Entitic vol] 91.5 fL Normal 79.0-98.0 [facility] Comment on above: Performed By: #### B MP3, HEMOG #### [place] [address] [address] [place], [place] Platelet mean volume (Bld) [Entitic vol] 9.7 fL Normal 7.4-10.4 [facility] Comment on above: Performed By: #### B MP3, HEMOG #### [place] [address] [address] [place], [place] Platelets (Bld) [#/Vol] 199 10*3/uL Normal 140-440 [facility] Comment on above: Performed By: #### B MP3, HEMOG #### [place] [address] [address] [place], [place] RBC (Bld) [#/Vol] 4.36 10*6/uL Normal 3.80-5.20 [facility] Comment on above: Performed By: #### B MP3, HEMOG #### [facility] [address] [place], [place] WBC (Bld) [#/Vol] 6.3 10*3/uL Normal 3.6-10.7 [facility] Comment on above: Performed By: #### B MP3, HEMOG #### [facility] [address] [place], [place] Basic Metabolic Panelon 10-18 Anion gap [Moles/Vol] 7 mmol/L [place], [place] Calcium [Mass/Vol] 9.2 mg/dL 8.4 - 10. 4 mg/dL [place] Chloride [Moles/Vol] 103 mmol/L 98 - 10 7 mmol/L [place] CO2 [Moles/Vol] 25 mmol/L 22 - 30 mmol/L [place] Creatinine [Mass/Vol] 0.66 mg/dL 0.52 - 1.25 mg/dL [place] EGFR IF NonAfrican Fijian 89.0 mL/min >60 [place] Comment on above: KDIGO guidelines pro vide the following GFR categories: Stage GFR(ml/min/1.73 m2) Terms G1 >=90 Normal or high G2 60-89 Mildly decreased* G3a 45-59 Mildly to moderately decreased G3b 30-44 Moderately to severely decreased G4 15-29 Severely decreased G5 <15 Kidney failure *Relative to young adult level. In the absence of evidence of kidney damage, neither GFR category G1 nor G2 fulfill the criteria for CKD. The CKD-EPI equation is validated in individuals 18 years of age and older. Currently the best equation for estimating glomerular filtration rate (GFR) from serum creatinine in children is the Bedside Banks equation. It is less accurate in patients with extremes of muscle mass, restriction of dietary protein, ingestion of creatine, extra-renal metabolism of creatinine, or treatment with medications that affect renal tubular creatinine secretion. GFR/1.73 sq M predicted among blacks MDRD (S/P/Bld) [Vol rate/Area] mL/min/{1.73_m2} >60 mL/min [place] Glucose [Mass/Vol] 135 mg/dL High 70 - 100 mg/dL [place] Interpretation and review of laboratory results Abnormal [place] Potassium [Moles/Vol] 4.2 mmol/L 3.5 - 5.1 mmol/L [place] Sodium [Moles/Vol] 135 mmol/L 135 - 145 mmol/L [place] Urea nitrogen [Mass/Vol] 15 mg/dL 7 - 20 mg/dL [place] Test Performed by [address] [address] [place] CBCon 10-31-2020 Erythrocyte distribution width (RBC) [Ratio] 13.9 % 11.5 - 14.5 % [place] Hematocrit (Bld) [Volume fraction] 40.4 % 35 - 47 % [place] Hemoglobin (Bld) [Mass/Vol] 13.4 g/dL 11.7 - 16 g/dL [place] MCH (RBC) [Entitic mass] 30.1 pg 26 - 34 pg [place] MCHC (RBC) [Mass/Vol] 33.1 % 32 - 36 % [place] MCV (RBC) [Entitic vol] 91.1 fL 79 - 98 fL [place] Platelet mean volume (Bld) [Entitic vol] 9.5 fL 7.4 - 10.4 fL [place] Platelets (Bld) [#/Vol] 189 10*3/uL 140 - 440 10*3/uL [place] RBC (Bld) [#/Vol] 4.44 10*6/uL 3.8 - 5.2 10*6/uL [place] WBC (Bld) [#/Vol] 7.8 10*3/uL 3.6 - 10.7 10*3/uL [place] Test Performed by [facility], [address] [place] [id number] [place] ECHO Complete 2D W Doppler W Coloron 10-31-2020 [facility], [facility] Incoming Cardiology Results From Selene/Neisha - 10/31/2020 11:23 AM EST TRANSTHORACIC ECHOCARDIOGRAM (AMENDED REPORT ) PATIENT: Areli Cheek STUDY DATE: 10/31/2020 : 1950 AGE: 70 HT/WT: 165.1 cm (65 67.6 kg (148.7 in) lb) GENDER: F BP: 140 / 54 LOCATION: [facility] PATIENT Inpatient main STATUS: *ORDERING PHYSICIAN: * Bonnie Latif *READING PHYSICIAN: * Yogesh, *NURSING AGENCY MANAGER: * Iram Albrecht RUST, Ratna CANTU AE, CCT, RCS INDICATIONS: Severe , S/P TAVR 1 Day. HISTORY: Transcatheter aortic valve replacement. CONCLUSIONS SUMMARY: 1. Left ventricle: The cavity size is normal. Wall thickness is moderately increased. Systolic function is hyperdynamic by the biplane method of disks. The estimated ejection fraction is 75%. There are no regional wall motion abnormalities. 2. Aortic valve: Prior repair procedures include transcatheter aortic valve replacement. There is a #26 mm Eduardo S3 ultra bioprosthetic valve, placed 10/30/20 There is no regurgitation. The mean systolic gradient is 10 mm Hg. The peak systolic gradient is 23 mm Hg. Highest gradients were attained from the RUSB. Dimensionless index: 0.53. STUDY DATA: Complete transthoracic echocardiogram. Procedure: Image quality was good. M-mode, complete 2D, complete spectral Doppler, and color flow Doppler images were acquired and archived for permanent storage and are available for subsequent review. Study status: Routine. Patient status: Inpatient. ECG RHYTHM: NSR FINDINGS LEFT VENTRICLE: The cavity size is normal. Wall thickness is moderately increased. Systolic function is hyperdynamic by the biplane method of disks. The estimated ejection fraction is 75%. There are no regional wall motion abnormalities. Doppler parameters are consistent with abnormal left ventricular relaxation (grade 1 diastolic dysfunction) = unremarkable for age. RIGHT VENTRICLE: The cavity size is normal. Systolic function is normal. Right ventricular systolic pressure is within the normal range. VENTRICULAR SEPTUM: There is no evidence of a ventricular septal defect. LEFT ATRIUM: The atrium is normal in size. NARINDER = 31 ml/m2. RIGHT ATRIUM: The atrium is normal in size. ATRIAL SEPTUM: Color Doppler shows no shunt. Hypermobile IAS noted. MITRAL VALVE: Structurally normal valve. Doppler: There is trivial, less than 1+ regurgitation. The peak diastolic gradient is 3 mm Hg. AORTIC VALVE: Prior repair procedures include transcatheter aortic valve replacement. There is a #26 mm Eduardo S3 ultra bioprosthetic valve, placed 10/30/20 Doppler: There is no regurgitation. Dimensionless index: 0.53. The valve area by the velocity-time integral method is 1.8 cm^2. The valve area index by the velocity-time integral method is 1 cm^2/m^2. The mean systolic gradient is 10 mm Hg. The peak systolic gradient is 23 mm Hg. Highest gradients were attained from the RUSB. The peak systolic velocity is 2.4 m/sec. TRICUSPID VALVE: Structurally normal valve. Doppler: There is no significant regurgitation. PULMONIC VALVE: Not well visualized. Structurally normal valve. Doppler: There is no regurgitation. AORTA: The aorta is normal. PULMONARY ARTERY: Main pulmonary artery: Normal. PERICARDIUM: There is no pericardial effusion. SYSTEMIC VEINS: Inferior vena cava: The vessel is normal. The IVC collapses by greater than 50% with inspiration. Measurements Value 10/30/2020 Reference Ascending aorta ID, A-P, S 2.6 cm --------- Ascending aorta ID/bsa, 1.5 cm/m^2 --------- A-P, S Left ventricle Value 10/30/2020 Reference LV ID, ED 4.0 cm 3.8 - 5.2 LV ID, ES 2.4 cm 2.2 - 3.5 LV ID/bsa, ED (L) 2.2 cm/m^2 2.3 - 3.1 LV ID/bsa, ES 1.4 cm/m^2 1.3 - 2.1 LV PW thickness, ED (H) 1.2 cm 0.6 - 0.9 LV PW/LV ID ratio, ED 0.29 --------- LV wall mass (H) 190 g 66 - 150 LV wall mass/bsa (H) 107 g/m^2 44 - 88 Stroke volume/bsa, 1-p A2C 36.8 ml/m^2 26.8 --------- LV end-diastolic volume, 75 ml 79 48 - 140 1-p A4C LV end-systolic volume, 22 ml 26 12 - 60 1-p A4C LV end-diastolic volume, 81 ml 76 46 - 106 2-p LV end-systolic volume, 20 ml 27 14 - 42 2-p LV ejection fraction, 2-p (H) 75 % 65 54 - 74 LV E/e', lateral 12.8 --------- LV E/e', medial 15 --------- LV E/e', average 13.8 --------- Ventricular septum Value 10/30/2020 Reference IVS thickness, ED (H) 1.5 cm 0.6 - 0.9 LVOT Value 10/30/2020 Reference LVOT ID, A-P 2.0 cm 2.1 --------- LVOT mean velocity, S 0.7 m/sec 0.6 --------- LVOT peak gradient, S 4 mm Hg 3 --------- Stroke volume (SV), LVOT 74 ml 70 --------- DP Stroke index (SV/bsa), 42 ml/m^2 39 --------- LVOT DP Aortic valve Value 10/30/2020 Reference Aortic valve peak 2.4 m/sec 1.2 --------- velocity, S Aortic valve mean 1.4 m/sec 0.8 --------- velocity, S Aortic mean gradient, S 10 mm Hg 3 --------- Aortic peak gradient, S 23 mm Hg 6 --------- DI 0.53 0.79 --------- Aortic valve area, VTI 1.8 cm^2 2.8 --------- Aortic valve area/bsa, VTI 1 cm^2/m^2 1.6 --------- Left atrium Value 10/30/2020 Reference LA volume/bsa, ES, 2-p 31 ml/m^2 16 - 34 Mitral valve Value 10/30/2020 Reference Mitral E-wave peak 0.9 m/sec --------- velocity Mitral A-wave peak 1.2 m/sec --------- velocity Mitral deceleration time 311 ms --------- Mitral peak gradient, D 3 mm Hg --------- Mitral E/A ratio, peak 0.8 --------- Right atrium Value 10/30/2020 Reference RA area, ES, A4C 15 cm^2 10 - 18 Right ventricle Value 10/30/2020 Reference RV ID, minor axis, ED, A4C 2.6 cm 1.9 - 3.5 mid Legend: (L) and (H) alison values outside specified reference range. (AMENDED REPORT ) Electronically signed by Ratna Zuñiga MD 10/31/2020 11:23 Prior Signatures: [facility], [place] TRANSTHORACIC ECHOCARDIOGRAM (AMENDED REPORT ) PATIENT: Areli Cheek STUDY DATE: 10/31/2020 : 1950 AGE: 70 HT/WT: 165.1 cm (65 67.6 kg (148.7 in) lb) GENDER: F BP: 140 / 54 LOCATION: [facility] PATIENT Inpatient main STATUS: *ORDERING PHYSICIAN: * Bonnie Latif *READING PHYSICIAN: * Yogesh, *NURSING AGENCY MANAGER: * Iram Albrecht RDCS, Ratna CANTU AE, CCT, RCS INDICATIONS: Severe , S/P TAVR 1 Day. HISTORY: Transcatheter aortic valve replacement. CONCLUSIONS SUMMARY: 1. Left ventricle: The cavity size is normal. Wall thickness is moderately increased. Systolic function is hyperdynamic by the biplane method of disks. The estimated ejection fraction is 75%. There are no regional wall motion abnormalities. 2. Aortic valve: Prior repair procedures include transcatheter aortic valve replacement. There is a #26 mm Eduardo S3 ultra bioprosthetic valve, placed 10/30/20 There is no regurgitation. The mean systolic gradient is 10 mm Hg. The peak systolic gradient is 23 mm Hg. Highest gradients were attained from the RUSB. Dimensionless index: 0.53. STUDY DATA: Complete transthoracic echocardiogram. Procedure: Image quality was good. M-mode, complete 2D, complete spectral Doppler, and color flow Doppler images were acquired and archived for permanent storage and are available for subsequent review. Study status: Routine. Patient status: Inpatient. ECG RHYTHM: NSR FINDINGS LEFT VENTRICLE: The cavity size is normal. Wall thickness is moderately increased. Systolic function is hyperdynamic by the biplane method of disks. The estimated ejection fraction is 75%. There are no regional wall motion abnormalities. Doppler parameters are consistent with abnormal left ventricular relaxation (grade 1 diastolic dysfunction) = unremarkable for age. RIGHT VENTRICLE: The cavity size is normal. Systolic function is normal. Right ventricular systolic pressure is within the normal range. VENTRICULAR SEPTUM: There is no evidence of a ventricular septal defect. LEFT ATRIUM: The atrium is normal in size. NARINDER = 31 ml/m2. RIGHT ATRIUM: The atrium is normal in size. ATRIAL SEPTUM: Color Doppler shows no shunt. Hypermobile IAS noted. MITRAL VALVE: Structurally normal valve. Doppler: There is trivial, less than 1+ regurgitation. The peak diastolic gradient is 3 mm Hg. AORTIC VALVE: Prior repair procedures include transcatheter aortic valve replacement. There is a #26 mm Eduardo S3 ultra bioprosthetic valve, placed 10/30/20 Doppler: There is no regurgitation. Dimensionless index: 0.53. The valve area by the velocity-time integral method is 1.8 cm^2. The valve area index by the velocity-time integral method is 1 cm^2/m^2. The mean systolic gradient is 10 mm Hg. The peak systolic gradient is 23 mm Hg. Highest gradients were attained from the RUSB. The peak systolic velocity is 2.4 m/sec. TRICUSPID VALVE: Structurally normal valve. Doppler: There is no significant regurgitation. PULMONIC VALVE: Not well visualized. Structurally normal valve. Doppler: There is no regurgitation. AORTA: The aorta is normal. PULMONARY ARTERY: Main pulmonary artery: Normal. PERICARDIUM: There is no pericardial effusion. SYSTEMIC VEINS: Inferior vena cava: The vessel is normal. The IVC collapses by greater than 50% with inspiration. Measurements Value 10/30/2020 Reference Ascending aorta ID, A-P, S 2.6 cm --------- Ascending aorta ID/bsa, 1.5 cm/m^2 --------- A-P, S Left ventricle Value 10/30/2020 Reference LV ID, ED 4.0 cm 3.8 - 5.2 LV ID, ES 2.4 cm 2.2 - 3.5 LV ID/bsa, ED (L) 2.2 cm/m^2 2.3 - 3.1 LV ID/bsa, ES 1.4 cm/m^2 1.3 - 2.1 LV PW thickness, ED (H) 1.2 cm 0.6 - 0.9 LV PW/LV ID ratio, ED 0.29 --------- LV wall mass (H) 190 g 66 - 150 LV wall mass/bsa (H) 107 g/m^2 44 - 88 Stroke volume/bsa, 1-p A2C 36.8 ml/m^2 26.8 --------- LV end-diastolic volume, 75 ml 79 48 - 140 1-p A4C LV end-systolic volume, 22 ml 26 12 - 60 1-p A4C LV end-diastolic volume, 81 ml 76 46 - 106 2-p LV end-systolic volume, 20 ml 27 14 - 42 2-p LV ejection fraction, 2-p (H) 75 % 65 54 - 74 LV E/e', lateral 12.8 --------- LV E/e', medial 15 --------- LV E/e', average 13.8 --------- Ventricular septum Value 10/30/2020 Reference IVS thickness, ED (H) 1.5 cm 0.6 - 0.9 LVOT Value 10/30/2020 Reference LVOT ID, A-P 2.0 cm 2.1 --------- LVOT mean velocity, S 0.7 m/sec 0.6 --------- LVOT peak gradient, S 4 mm Hg 3 --------- Stroke volume (SV), LVOT 74 ml 70 --------- DP Stroke index (SV/bsa), 42 ml/m^2 39 --------- LVOT DP Aortic valve Value 10/30/2020 Reference Aortic valve peak 2.4 m/sec 1.2 --------- velocity, S Aortic valve mean 1.4 m/sec 0.8 --------- velocity, S Aortic mean gradient, S 10 mm Hg 3 --------- Aortic peak gradient, S 23 mm Hg 6 --------- DI 0.53 0.79 --------- Aortic valve area, VTI 1.8 cm^2 2.8 --------- Aortic valve area/bsa, VTI 1 cm^2/m^2 1.6 --------- Left atrium Value 10/30/2020 Reference LA volume/bsa, ES, 2-p 31 ml/m^2 16 - 34 Mitral valve Value 10/30/2020 Reference Mitral E-wave peak 0.9 m/sec --------- velocity Mitral A-wave peak 1.2 m/sec --------- velocity Mitral deceleration time 311 ms --------- Mitral peak gradient, D 3 mm Hg --------- Mitral E/A ratio, peak 0.8 --------- Right atrium Value 10/30/2020 Reference RA area, ES, A4C 15 cm^2 10 - 18 Right ventricle Value 10/30/2020 Reference RV ID, minor axis, ED, A4C 2.6 cm 1.9 - 3.5 mid Legend: (L) and (H) alison values outside specified reference range. (AMENDED REPORT ) Electronically signed by Ratna Zuñiga MD 10/31/2020 11:23 Prior Signatures: [place] EKG 12 leadon 10-31-2020 [facility] Incoming Cardiology Results From [facility] - 10/31/2020 8:17 AM EST [facility] Test Date: 2020-10-30 Pat Name: Areli Youngblood Department: [facility] Room: 141 Gender: F Junior Network Administrator: SEAN JANEB: 1950 Requested By: BONNIE LATIF Order Number: [id number] Reading MD: Tj Davison Measurements Intervals [place] Rate: 55 P: 68 NH: 253 QRS: -19 QRSD: 119 T: 107 QT: 430 QTc: 412 Interpretive Statements Sinus bradycardia Prolonged NH interval Nonspecific intraventricular conduction delay Abnrm T, consider ischemia, anterolateral lds Electronically Signed On 10-31-2020 8:16:46 EST by Tj [employer] [facility] Test Date: 2020-10-30 Pat Name: Areli Cheek Department: [facility] Room: 141 Gender: F Junior Network Administrator: SEAN JANEB: 1950 Requested By: BONNIE LATIF Order Number: [id number] Reading : Tj Davison Measurements Intervals [place] Rate: 55 P: 68 NH: 253 QRS: -19 QRSD: 119 T: 107 QT: 430 QTc: 412 Interpretive Statements Sinus bradycardia Prolonged NH interval Nonspecific intraventricular conduction delay Abnrm T, consider ischemia, anterolateral lds Electronically Signed On 10-31-2020 8:16:46 EST by Tj [employer] Basic Metabolic Panelon 10-18 Anion gap [Moles/Vol] 2 mmol/L [place], [place] Calcium [Mass/Vol] 8.7 mg/dL 8.4 - 10. 4 mg/dL [place] Chloride [Moles/Vol] 106 mmol/L 98 - 10 7 mmol/L [place] CO2 [Moles/Vol] 28 mmol/L 22 - 30 mmol/L [place] Creatinine [Mass/Vol] 0.55 mg/dL 0.52 - 1.25 mg/dL [place] EGFR IF NonAfrican [place]ijian >90.0 >60 mL/min [place] Comment on above: KDIGO guidelines pro vide the following GFR categories: Stage GFR(ml/min/1.73 m2) Terms G1 >=90 Normal or high G2 60-89 Mildly decreased* G3a 45-59 Mildly to moderately decreased G3b 30-44 Moderately to severely decreased G4 15-29 Severely decreased G5 <15 Kidney failure *Relative to young adult level. In the absence of evidence of kidney damage, neither GFR category G1 nor G2 fulfill the criteria for CKD. The CKD-EPI equation is validated in individuals 18 years of age and older. Currently the best equation for estimating glomerular filtration rate (GFR) from serum creatinine in children is the Bedside Banks equation. It is less accurate in patients with extremes of muscle mass, restriction of dietary protein, ingestion of creatine, extra-renal metabolism of creatinine, or treatment with medications that affect renal tubular creatinine secretion. GFR/1.73 sq M predicted among blacks MDRD (S/P/Bld) [Vol rate/Area] mL/min/{1.73_m2} >60 mL/min [place] Glucose [Mass/Vol] 99 mg/dL 70 - 100 mg/dL [place] Potassium [Moles/Vol] 4.0 mmol/L 3.5 - 5.1 mmol/L [place] Sodium [Moles/Vol] 136 mmol/L 135 - 145 mmol/L [place] Urea nitrogen [Mass/Vol] 20 mg/dL 7 - 20 mg/dL [place] Test Performed by [facility], [address] [place] [id number] [place] CBCon 10-30-2020 Erythrocyte distribution width (RBC) [Ratio] 13.7 % 11.5 - 14.5 % [place] Hematocrit (Bld) [Volume fraction] 35.3 % 35 - 47 % [place] Hemoglobin (Bld) [Mass/Vol] 12.0 g/dL 11.7 - 16 g/dL [place] MCH (RBC) [Entitic mass] 30.6 pg 26 - 34 pg [place] MCHC (RBC) [Mass/Vol] 34.0 % 32 - 36 % [place] MCV (RBC) [Entitic vol] 90.0 fL 79 - 98 fL [place] Platelet mean volume (Bld) [Entitic vol] 9.5 fL 7.4 - 10.4 fL [place] Platelets (Bld) [#/Vol] 185 10*3/uL 140 - 440 10*3/uL [place] RBC (Bld) [#/Vol] 3.93 10*6/uL 3.8 - 5.2 10*6/uL [place] WBC (Bld) [#/Vol] 4.8 10*3/uL 3.6 - 10.7 10*3/uL [place] Test Performed by [facility], [address] [place] [address] [place] ECHO Complete 2D W Doppler W Coloron 10-30-2020 LIMITED TRANSTHORACI C ECHOCARDIOGRAM Perioperative - TAVR (AMENDED REPORT ) PATIENT: Areli Cheek STUDY DATE: 10/30/2020 : 1950 AGE: 70 HT/WT: 165.1 cm (65 70.3 kg (154.7 in) lb) GENDER: F BP: 116 / 62 LOCATION: [facility] PATIENT Inpatient main STATUS: *ORDERING PHYSICIAN: * Goldy Latif MD *READING PHYSICIAN: * Conner *NURSING AGENCY MANAGER: * Ramona Rene MD RDCS, AE INDICATIONS: TAVR Procedure in Hybrid Room. CONCLUSIONS SUMMARY: 1. Left ventricle: Systolic function is normal by the biplane method of disks. The estimated ejection fraction is 65%. There are no regional wall motion abnormalities. 2. Mitral valve: Structurally normal valve. 3. Aortic valve: There is a well seated 26 mm Samuels Eduardo s3 ultra bioprosthetic valve (with pre and post hemodymanics as listed below. No valvular or perivalvular insufficiency is seen. 4. Tricuspid valve: Structurally normal valve. There is trivial, less than 1+ regurgitation. STUDY DATA: Transthoracic echocardiography, limited study. Procedure: Image quality was fair. The study was technically limited due to supine position. M-mode and limited 2D images were acquired and archived for permanent storage and are available for subsequent review. Study status: Routine. Patient status: Inpatient. Location: Hybrid operating room. FINDINGS LEFT VENTRICLE: The cavity size is normal. Wall thickness is normal. Systolic function is normal by the biplane method of disks. The estimated ejection fraction is 65%. There are no regional wall motion abnormalities. RIGHT VENTRICLE: The cavity size is normal. Wall thickness is normal. Systolic function is normal. LEFT ATRIUM: The atrium is normal in size. RIGHT ATRIUM: The atrium is normal in size. MITRAL VALVE: Structurally normal valve. Leaflet separation is normal. Doppler: Transvalvular velocity is within the normal range. There is no evidence for stenosis. There is no regurgitation. AORTIC VALVE: There is a well seated 26 mm Samuels Eduardo s3 ultra bioprosthetic valve (with pre and post hemodymanics as listed below. No valvular or perivalvular insufficiency is seen. Doppler: There is trivial, less than 1+ regurgitation. Dimensionless index: 0.79. The valve area by the velocity-time integral method is 2.8 cm^2. The valve area index by the velocity-time integral method is 1.6 cm^2/m^2. The mean systolic gradient is 3 mm Hg. The peak systolic gradient is 6 mm Hg. The peak systolic velocity is 1.2 m/sec. Pre-TAVR: SEGUNDO: 0.7 cm^2. Peak gradient: 81 mm Hg. Mean gradient: 46 mm Hg. Peak velocity: 4.5 m/sec. Post-TAVR: SEGUNDO: 2.8 cm^2. Peak gradient: 5 mm Hg. Mean gradient: 3 mm Hg. Peak velocity: 1.2 m/sec. TRICUSPID VALVE: Structurally normal valve. Leaflet separation is normal. Doppler: Transvalvular velocity is within the normal range. There is no evidence for stenosis. There is trivial, less than 1+ regurgitation. Measurements Left ventricle Value Reference Stroke volume/bsa, 1-p A2C 26.8 ml/m^2 --------- LV end-diastolic volume, 1-p A4C 79 ml 48 - 140 LV end-systolic volume, 1-p A4C 26 ml 12 - 60 LV end-diastolic volume, 2-p 76 ml 46 - 106 LV end-systolic volume, 2-p 27 ml 14 - 42 LV ejection fraction, 2-p 65 % 54 - 74 LVOT Value Reference LVOT ID, A-P 2.1 cm --------- LVOT mean velocity, S 0.6 m/sec --------- LVOT peak gradient, S 3 mm Hg --------- Stroke volume (SV), LVOT DP 70 ml --------- Stroke index (SV/bsa), LVOT DP 39 ml/m^2 --------- Aortic valve Value Reference Aortic valve peak velocity, S 1.2 m/sec --------- Aortic valve mean velocity, S 0.8 m/sec --------- Aortic mean gradient, S 3 mm Hg --------- Aortic peak gradient, S 6 mm Hg --------- DI 0.79 --------- Aortic valve area, VTI 2.8 cm^2 --------- Aortic valve area/bsa, VTI 1.6 cm^2/m^2 --------- Legend: (L) and (H) alison values outside specified reference range. (AMENDED REPORT ) Electronically signed by Conner Rene MD 10/31/2020 11:11 Prior Signatures: [facility], [facility], [facility] Incoming Cardiology Results From [facility] - 10/31/2020 11:11 AM EST LIMITED TRANSTHORACIC ECHOCARDIOGRAM Perioperative - TAVR (AMENDED REPORT ) PATIENT: Areli Cheek STUDY DATE: 10/30/2020 : 1950 AGE: 70 HT/WT: 165.1 cm (65 70.3 kg (154.7 in) lb) GENDER: F BP: 116 / 62 LOCATION: [facility] PATIENT Inpatient main STATUS: *ORDERING PHYSICIAN: * Goldy Latif MD *READING PHYSICIAN: * Conner *NURSING AGENCY MANAGER: * Ramona Rene MD RDCS, AE INDICATIONS: TAVR Procedure in Hybrid Room. CONCLUSIONS SUMMARY: 1. Left ventricle: Systolic function is normal by the biplane method of disks. The estimated ejection fraction is 65%. There are no regional wall motion abnormalities. 2. Mitral valve: Structurally normal valve. 3. Aortic valve: There is a well seated 26 mm Samuels Eduardo s3 ultra bioprosthetic valve (with pre and post hemodymanics as listed below. No valvular or perivalvular insufficiency is seen. 4. Tricuspid valve: Structurally normal valve. There is trivial, less than 1+ regurgitation. STUDY DATA: Transthoracic echocardiography, limited study. Procedure: Image quality was fair. The study was technically limited due to supine position. M-mode and limited 2D images were acquired and archived for permanent storage and are available for subsequent review. Study status: Routine. Patient status: Inpatient. Location: Hybrid operating room. FINDINGS LEFT VENTRICLE: The cavity size is normal. Wall thickness is normal. Systolic function is normal by the biplane method of disks. The estimated ejection fraction is 65%. There are no regional wall motion abnormalities. RIGHT VENTRICLE: The cavity size is normal. Wall thickness is normal. Systolic function is normal. LEFT ATRIUM: The atrium is normal in size. RIGHT ATRIUM: The atrium is normal in size. MITRAL VALVE: Structurally normal valve. Leaflet separation is normal. Doppler: Transvalvular velocity is within the normal range. There is no evidence for stenosis. There is no regurgitation. AORTIC VALVE: There is a well seated 26 mm Samuels Eduardo s3 ultra bioprosthetic valve (with pre and post hemodymanics as listed below. No valvular or perivalvular insufficiency is seen. Doppler: There is trivial, less than 1+ regurgitation. Dimensionless index: 0.79. The valve area by the velocity-time integral method is 2.8 cm^2. The valve area index by the velocity-time integral method is 1.6 cm^2/m^2. The mean systolic gradient is 3 mm Hg. The peak systolic gradient is 6 mm Hg. The peak systolic velocity is 1.2 m/sec. Pre-TAVR: SEGUNDO: 0.7 cm^2. Peak gradient: 81 mm Hg. Mean gradient: 46 mm Hg. Peak velocity: 4.5 m/sec. Post-TAVR: SEGUNDO: 2.8 cm^2. Peak gradient: 5 mm Hg. Mean gradient: 3 mm Hg. Peak velocity: 1.2 m/sec. TRICUSPID VALVE: Structurally normal valve. Leaflet separation is normal. Doppler: Transvalvular velocity is within the normal range. There is no evidence for stenosis. There is trivial, less than 1+ regurgitation. Measurements Left ventricle Value Reference Stroke volume/bsa, 1-p A2C 26.8 ml/m^2 --------- LV end-diastolic volume, 1-p A4C 79 ml 48 - 140 LV end-systolic volume, 1-p A4C 26 ml 12 - 60 LV end-diastolic volume, 2-p 76 ml 46 - 106 LV end-systolic volume, 2-p 27 ml 14 - 42 LV ejection fraction, 2-p 65 % 54 - 74 LVOT Value Reference LVOT ID, A-P 2.1 cm --------- LVOT mean velocity, S 0.6 m/sec --------- LVOT peak gradient, S 3 mm Hg --------- Stroke volume (SV), LVOT DP 70 ml --------- Stroke index (SV/bsa), LVOT DP 39 ml/m^2 --------- Aortic valve Value Reference Aortic valve peak velocity, S 1.2 m/sec --------- Aortic valve mean velocity, S 0.8 m/sec --------- Aortic mean gradient, S 3 mm Hg --------- Aortic peak gradient, S 6 mm Hg --------- DI 0.79 --------- Aortic valve area, VTI 2.8 cm^2 --------- Aortic valve area/bsa, VTI 1.6 cm^2/m^2 --------- Legend: (L) and (H) alison values outside specified reference range. (AMENDED REPORT ) Electronically signed by Conner Rene MD 10/31/2020 11:11 Prior Signatures: [facility] SERVICESWak[facility] [employer] [place] POCT Glucoseon 10-30-2020 Glucose [Mass/Vol] 98 mg/dL 70 - 100 mg/dL [place], [place] Comment on above: Test performed by Shut Down ucose meter. Results may be 10%-15% lower than serum/plasma values. (CLIA ID [id number]) Test Performed by [facility], [address] [place] [id number] [place], [place] Brain Natriuretic Peptideon 10-15-2020 Natriuretic peptide B (Bld) [Mass/Vol] 115 pg/mL 0 - 125 pg/mL [place], [place] [facility] Patient Name: ARELI BYRD Computed Tomography ACCESSION EXAM DATE/TIME PROCEDURE ORDERING PROVIDER [id number] 10/15/2020 09:58 EST CTA Chest/Abdomen/Pelvis TERESA TURNERJOHN w/ + w/o contra CPT code 92633 [id number] [id number] Reason For Exam (CTA Chest/Abdomen/Pelvis w/ + w/o contra) TAVR protocol Report Cardiovascular CTA ? [facility] Indication: 70-year-old woman with suspected severe aortic stenosis, being evaluated for transcathether aortic valve implantation. Study performed to assess cardiac and vascular anatomy for determination of procedural suitability and for pre- procedure planning. Technique: Computed tomography of the heart, thoracoabdominal aorta, and iliofemoral system was performed using a [employer] Aquilion One 320 detector scanner. Axial acquisition with prospective ECG gating was performed after the administration of 100 mL of low-osmolar contrast (Isovue 370). Technical adjustments were employed to minimize radiation dose to the patient whenever possible. Images were reconstructed and analyzed on an advanced post-processing 3D workstation. Reconstructions throughout the cardiac cycle were used to perform 4D cine loop aortic valve analysis. Study Quality: The images are of excellent quality. Extracardiac Findings: There is prior right breast mastectomy and right axillary lymph node surgical clips. No mediastinal, hilar or axillary adenopathy is evident. 3 mm right upper lobe calcified granuloma. No noncalcified pulmonary nodules, infiltrate or pleural effusion is evident. Thoracic degenerative spondylosis. No bony thoracic lesions. Liver, spleen, pancreas, bilateral adrenal glands and kidneys are unremarkable. There is a retroaortic left renal vein. No hydronephrosis. The bowel loops are unremarkable. Uterus is anteverted and contains a small fundal fibroid. Urinary bladder is unremarkable. Lumbar degenerative spondylosis. Cardiac Chambers and Mitral Valve: The pericardium is unremarkable. Symmetric mild left ventricular hypertrophy is noted. The right ventricle is normal in size. No significant asymmetric septal hypertrophy (sigmoid bulge) is present. The mitral valve is unremarkable by CT appearance. The anterior mitral leaflet is free of the LVOT during systole. The left atrium is normal. The left atrial appendage is normal in appearance. The right atrium is normal. Coronary Arteries: The coronaries have normal origins. There is a pattern of right coronary dominance. There is no evidence of coronary Computed Tomography Report atherosclerosis. The present study was not optimized for quantification of coronary stenosis. Aortic Valve Leaflet anatomy: The aortic valve is tricuspid. The LCC has moderate degree of calcification. The RCC has moderate degree of calcification. The NCC has moderate degree of calcification. Overall, calcification is Grade 3 (See reference scale). Grades of AV Leaflet Calcification (0-4): Grade 0: No calcification Grade 1: Localized/spotty, small, nondense calcifications Grade 2: Moderate large, dense calcifications in some but not all leaflets Grade 3: Moderate large, dense calcifications in all leaflets Grade 4: Severe calcification on majority of leaflets Valve area assessment by planimetry: By planimetry during systole, the aortic valve area is 2 cm2 measured during systole. Note that the modest temporal resolution of 4D cine CT reconstruction limits accuracy. Aortic Annular and Root Morphology Using a double-oblique short axis multiplanar reformat, the aortic annulus measures 2.8 x 2.2 cm with an area of 4.43 cm2 and a perimeter of 77 mm during systole. Note that annular size is generally larger by MDCT than by TTE or ANGY. The distance from the annulus to left main ostium is 14 mm and to the RCA ostium is 9.1 mm. For the purpose of predicting the correct angle of aortic valve deployment, multiplanar reformats were used to relate the correct aortic annular plane to the 3D-rendered ascending aorta in the AP cranial/caudal, straight PUGH/CHADIAN, and CHADIAN cranial/caudal projections. See saved multiplanar reformatted images. Aorta and Iliofemoral System The ascending aorta is normal in size and has mild atheroma. The aortic root measures 34 mm at the level of the sinuses. The sinotubular junction has no significant calcification and measures 33 mm in diameter. The mid ascending aorta measures 38 mm in maximal diameter. The aortic arch measures 37 mm proximally and 25 mm distally. The arch and proximal arch vessels have no atheroma. The descending thoracic aorta is normal in size throughout its course, measuring 25 mm proximally, 24 mm mid, and 21 mm as it crosses the diaphragm. The descending aorta has mild diffuse atheroma. The abdominal aorta is normal in size. The celiac axis, superior mesenteric, and inferior mesenteric arteries are patent. There is one renal artery on each side and both appear patent. The right iliac system is describe minimal tortuosity without calcification. The external iliac has mild calcification. The femoral artery has no calcification. The MLD measurements at each segment, using a centerline technique, are as follows: RCIA 12 mm REIA 8 mm Computed Tomography Report RCFA 9 mm The left iliac system is describe mild tortuosity without calcification. The external iliac has no calcification. The femoral artery has no calcification. The MLD measurements at each segment, using a centerline technique, are as follows: LCIA 12 mm AMPARO 8 mm LCFA 8 mm CONCLUSIONS: 1. Aortic stenosis with moderate aortic valve calcification, with descriptive anatomy and annular / aortic root measurements as detailed above. 2. Patent bilateral iliofemoral system as detailed above. 3. Mild left ventricular hypertrophy. 4. Right mastectomy. No evidence of recurrent disease 5. Small uterine fibroid. Report Dictated on --- Final --- Dictated: 10/15/2020 8:14 pm Dictating Physician: ABEL RICARDO DO, I Signed Date and Time: 10/15/2020 8:25 pm Signed by: ABEL RICARDO DO, I Transcribed Date and Time: 10/15/2020 8:14 [facility], [facility] Incoming Radiology Results From [facility] - 10/15/2020 8:27 PM EST [facility]: [id number] Computed Tomography ACCESSION EXAM DATE/TIME PROCEDURE ORDERING PROVIDER [id number] 10/15/2020 09:58 EST CTA Chest/Abdomen/Pelvis TERESA TURNER, JOHN w/ + w/o contra CPT code [id number] [id number] Reason For Exam (CTA Chest/Abdomen/Pelvis w/ + w/o contra) TAVR protocol Report Cardiovascular CTA ? [facility] Indication: 70-year-old woman with suspected severe aortic stenosis, being evaluated for transcathether aortic valve implantation. Study performed to assess cardiac and vascular anatomy for determination of procedural suitability and for pre- procedure planning. Technique: Computed tomography of the heart, thoracoabdominal aorta, and iliofemoral system was performed using a [employer] Aquilion One 320 detector scanner. Axial acquisition with prospective ECG gating was performed after the administration of 100 mL of low-osmolar contrast (Isovue 370). Technical adjustments were employed to minimize radiation dose to the patient whenever possible. Images were reconstructed and analyzed on an advanced post-processing 3D workstation. Reconstructions throughout the cardiac cycle were used to perform 4D cine loop aortic valve analysis. Study Quality: The images are of excellent quality. Extracardiac Findings: There is prior right breast mastectomy and right axillary lymph node surgical clips. No mediastinal, hilar or axillary adenopathy is evident. 3 mm right upper lobe calcified granuloma. No noncalcified pulmonary nodules, infiltrate or pleural effusion is evident. Thoracic degenerative spondylosis. No bony thoracic lesions. Liver, spleen, pancreas, bilateral adrenal glands and kidneys are unremarkable. There is a retroaortic left renal vein. No hydronephrosis. The bowel loops are unremarkable. Uterus is anteverted and contains a small fundal fibroid. Urinary bladder is unremarkable. Lumbar degenerative spondylosis. Cardiac Chambers and Mitral Valve: The pericardium is unremarkable. Symmetric mild left ventricular hypertrophy is noted. The right ventricle is normal in size. No significant asymmetric septal hypertrophy (sigmoid bulge) is present. The mitral valve is unremarkable by CT appearance. The anterior mitral leaflet is free of the LVOT during systole. The left atrium is normal. The left atrial appendage is normal in appearance. The right atrium is normal. Coronary Arteries: The coronaries have normal origins. There is a pattern of right coronary dominance. There is no evidence of coronary Computed Tomography Report atherosclerosis. The present study was not optimized for quantification of coronary stenosis. Aortic Valve Leaflet anatomy: The aortic valve is tricuspid. The LCC has moderate degree of calcification. The RCC has moderate degree of calcification. The NCC has moderate degree of calcification. Overall, calcification is Grade 3 (See reference scale). Grades of AV Leaflet Calcification (0-4): Grade 0: No calcification Grade 1: Localized/spotty, small, nondense calcifications Grade 2: Moderate large, dense calcifications in some but not all leaflets Grade 3: Moderate large, dense calcifications in all leaflets Grade 4: Severe calcification on majority of leaflets Valve area assessment by planimetry: By planimetry during systole, the aortic valve area is 2 cm2 measured during systole. Note that the modest temporal resolution of 4D cine CT reconstruction limits accuracy. Aortic Annular and Root Morphology Using a double-oblique short axis multiplanar reformat, the aortic annulus measures 2.8 x 2.2 cm with an area of 4.43 cm2 and a perimeter of 77 mm during systole. Note that annular size is generally larger by MDCT than by TTE or ANGY. The distance from the annulus to left main ostium is 14 mm and to the RCA ostium is 9.1 mm. For the purpose of predicting the correct angle of aortic valve deployment, multiplanar reformats were used to relate the correct aortic annular plane to the 3D-rendered ascending aorta in the AP cranial/caudal, straight PUGH/CHADIAN, and CHADIAN cranial/caudal projections. See saved multiplanar reformatted images. Aorta and Iliofemoral System The ascending aorta is normal in size and has mild atheroma. The aortic root measures 34 mm at the level of the sinuses. The sinotubular junction has no significant calcification and measures 33 mm in diameter. The mid ascending aorta measures 38 mm in maximal diameter. The aortic arch measures 37 mm proximally and 25 mm distally. The arch and proximal arch vessels have no atheroma. The descending thoracic aorta is normal in size throughout its course, measuring 25 mm proximally, 24 mm mid, and 21 mm as it crosses the diaphragm. The descending aorta has mild diffuse atheroma. The abdominal aorta is normal in size. The celiac axis, superior mesenteric, and inferior mesenteric arteries are patent. There is one renal artery on each side and both appear patent. The right iliac system is describe minimal tortuosity without calcification. The external iliac has mild calcification. The femoral artery has no calcification. The MLD measurements at each segment, using a centerline technique, are as follows: RCIA 12 mm REIA 8 mm Computed Tomography Report RCFA 9 mm The left iliac system is describe mild tortuosity without calcification. The external iliac has no calcification. The femoral artery has no calcification. The MLD measurements at each segment, using a centerline technique, are as follows: LCIA 12 mm AMPARO 8 mm LCFA 8 mm CONCLUSIONS: 1. Aortic stenosis with moderate aortic valve calcification, with descriptive anatomy and annular / aortic root measurements as detailed above. 2. Patent bilateral iliofemoral system as detailed above. 3. Mild left ventricular hypertrophy. 4. Right mastectomy. No evidence of recurrent disease 5. Small uterine fibroid. Report Dictated on --- Final --- Dictated: 10/15/2020 8:14 pm Dictating Physician: ABEL RICARDO DO, I Signed Date and Time: 10/15/2020 8:25 pm Signed by: ABEL RICARDO DO, I Transcribed Date and Time: 10/15/2020 8:14 [facility], [place] Otheron 10-15-2020 Test Performed by [facility], [address] [place] [address], [place] Protime/INR & PTTon 10-15-20 20 aPTT Coag (Bld) [Time] 26 s 20 - 30.5 s [place], [place] Comment on above: NOTE: The therapeuti c time for Heparin anticoagulation, based on Xa activity inhibition, is an APTT of 46-80 seconds. INR Coag (PPP) [Relative time] 0.9 {INR} [place], [place] Comment on above: Recommended Anticoag ulant Therapy: SEE BELOW ----- INR of 2.0 - 3.0 : - Prophylaxis of Venous Thrombosis (high-risk surgery) - Treatment of Venous Thrombosis - Treatment of Pulmonary Embolism (Includes tissue heart valves, Acute Myocardial Infarction to prevent systemic embolism, Valvular Heart Disease, and Atrial Fibrillation) ----- INR of 2.5 - 3.5 : - Mechanical Prosthetic Valves (high risk) - If oral anticoagulant therapy is used to prevent Myocardial Infarction PT Coag (PPP) [Time] 10.2 s 9 - 12 s [place], [place] Comment on above: . TYPE AND SCREENon 10-15-2020 Sodium [Moles/Vol] Negative [place], [place] Sodium [Moles/Vol] Positive [place] Sodium [Moles/Vol] O [place], [place] XR CHEST (2 VW)on 10-15-2020 [facility] Incoming Radiology Results From [facility] - 10/15/2020 10:34 AM EST Patient Name: ARELI CHEEK Diagnostic Radiology ACCESSION EXAM DATE/TIME PROCEDURE ORDERING PROVIDER [id number] 10/15/2020 09:35 EST CR Chest PA & LAT CARLEEN LATIF MEGGAN CPT code [id number] Reason For Exam (CR Chest PA & LAT) TAVR Report CHEST X-RAY PA and lateral CLINICAL INDICATION: Preoperative examination PA and lateral radiographs of the chest were obtained. COMPARISON: None FINDINGS: The cardiac silhouette is within normal limits. No focal consolidation is seen within the lungs. No pleural effusion or pneumothorax is identified. Degenerative changes of the thoracic spine are noted. Surgical clips overlie the right axilla. IMPRESSION: No acute cardiopulmonary process. Report Dictated on --- Final --- Dictated: 10/15/2020 10:32 am Dictating Physician: MD JUDD JASON Signed Date and Time: 10/15/2020 10:33 am Signed by: MD JUDD JASON Transcribed Date and Time: 10/15/2020 10:32 [place], [place] Patient Name: ARELI BYRD Diagnostic Radiology ACCESSION EXAM DATE/TIME PROCEDURE ORDERING PROVIDER [id number] 10/15/2020 09:35 EST CR Chest PA & LAT LATIFCARLEEN MEGGAN CPT code 34569 Reason For Exam (CR Chest PA & LAT) TAVR Report CHEST X-RAY PA and lateral CLINICAL INDICATION: Preoperative examination PA and lateral radiographs of the chest were obtained. COMPARISON: None FINDINGS: The cardiac silhouette is within normal limits. No focal consolidation is seen within the lungs. No pleural effusion or pneumothorax is identified. Degenerative changes of the thoracic spine are noted. Surgical clips overlie the right axilla. IMPRESSION: No acute cardiopulmonary process. Report Dictated on --- Final --- Dictated: 10/15/2020 10:32 am Dictating Physician: MD JUDD JASON Signed Date and Time: 10/15/2020 10:33 am Signed by: MD JUDD JASON Transcribed Date and Time: 10/15/2020 10:32 [place], [place] Lab Report: CBC W/Diff, Auto - EPLAB Onlyon 04-27-2017 Basophils/100 leukocytes 2.1 % High 0-1 [facility] Work Phone: Eosinophils/100 leukocytes 2.3 % Invalid Interpretation Code 0-5 [facility] Work Phone: Erythrocytes (RBC) 4.03 10*6/uL Low 4.2-5.4 [facility] Work Phone: [phone] Hematocrit (HCT) 36.9 % Low 37-47 [facility] Work Phone: [phone] Hemoglobin (HGB) 13.3 g/dL Invalid Interpretation Code 12.0-15.0 [facility] Work Phone: Lymphocytes 1.41 X10 3/UL Invalid Interpretation Code 0.83-4.51 [facility] Work Phone: Lymphocytes/100 leukocytes 28.3 % Invalid Interpretation Code 19-41 [facility] Work Phone: MCH 33.1 pg High 27.0-32.0 [facility] Work Phone: MCHC 36.2 G/GL High 32-36 [facility] Work Phone: MCV 91.6 fL Invalid Interpretation Code 81-99 [facility] Work Phone: Monocytes/100 leukocytes 7.5 % Invalid Interpretation Code 0-10 [facility] Work Phone: neutrophil count, blood 3.0 X10 3/UL Invalid Interpretation Code 2.0-7.7 [facility] Work Phone: Neutrophils/100 leukocytes 59.7 % Invalid Interpretation Code 47-70 [facility] Work Phone: Platelets 211 10*3/mm3 Invalid Interpretation Code 150-450 [facility] Work Phone: PMV by Eb 9.4 fL Invalid Interpretation Code 6.2-12.0 [facility] Work Phone: RDW-CA 12.2 % Invalid Interpretation Code 11.6-14.6 [facility] Work Phone: WBC (Leukocytes) 5.0 10*3/uL Invalid Interpretation Code 4.4-11.0 [facility] Work Phone: [phone] Lab Report: [facility] 04-27-2017 Alanine aminotransferase (ALT) 24 U/L Invalid Interpretation Code 12-78 [facility] Work Phone: Albumin 3.4 g/dL Invalid Interpretation Code 3.4-5.0 [facility] Work Phone: Albumin/Globulin Ratio 1 {ratio} Invalid Interpretation Code 0.9-2.4 [facility] Work Phone: Alkaline phosphatase (ALP) 56 U/L Invalid Interpretation Code 45-117 [facility] Work Phone: Anion gap 8 mmol/L Invalid Interpretation Code 5-15 [facility] Work Phone: Aspartate aminotransferase (AST) 15 U/L Invalid Interpretation Code 15-37 [facility] Work Phone: Bilirubin (total) 0.40 mg/dL Invalid Interpretation Code 0.20-1.00 [facility] Work Phone: [phone] BUN/Creatinine Ratio 32.1 RATIO High 10-20 [facility] Work Phone: Calcium 8.5 mg/dL Invalid Interpretation Code 8.5-10.1 [facility] Work Phone: Chloride 106 mmol/L Invalid Interpretation Code 98-107 [facility] Work Phone: CO2 27.0 mmol/L Invalid Interpretation Code 21.0-32.0 [facility] Work Phone: Creatinine 0.59 mg/dL Invalid Interpretation Code 0.55-1.02 [facility] Work Phone: eGFR (non-black) 108 mL/min/{1.73_m2} Invalid Interpretation Code >60 [facility] Work Phone: eGFR (non-black) 130 mL/min/{1.73_m2} Invalid Interpretation Code >60 [facility] Work Phone: Globulin 3.3 g/dL Invalid Interpretation Code 2.3-3.5 [facility] Work Phone: Glucose 117 mg/dL High 70-110 [facility] Work Phone: Potassium 4.1 mmol/L Invalid Interpretation Code 3.5-5.1 [facility] Work Phone: Protein 6.7 g/dL Invalid Interpretation Code 6.4-8.2 [facility] Work Phone: Sodium 141 mmol/L Invalid Interpretation Code 136-145 [facility] Work Phone: [phone] Urea nitrogen 19 mg/dL High 7-18 [facility] Work Phone: [phone] Lab Report: LDHon 04-27-2017 lactate dehydrogenase - serum 165 U/L Invalid Interpretation Code 84-246 [facility] Work Phone: Lab Report: Uric Acidon 04-17 Urate 3.1 mg/dL Invalid Interpretation Code 2.6-6.0 [facility] Work Phone: Office Visiton 04-06-2017 Documentation of current medications (procedure) Done Invalid Interpretation Code [facility] Work Phone: [phone] Fall risk assessment No Invalid Interpretation Code [facility] Work Phone: [phone] Protein mass conc Done [facility] Work Phone: [phone] Replaced Document: Abbey Deleon CG Observationson 09-30-2016 BUN (urea nitrogen) Sinus Rhythm Low vol tage in precordial leads. -Incomplete right bundle branch block. ABNORMAL Invalid Interpretation Code [facility] Work Phone: [phone] EKG QRS axis 5 deg [facility] Work Phone: [phone] GE use only - for [employer] import when terms are not otherwise specified 403 ms Invalid Interpretation Code [facility] Work Phone: [phone] P Isaban 47 deg [facility] Work Phone: P wave axis, electrocardiogram 47 deg Invalid Interpretation Code [facility] Work Phone: NH Interval 196 ms [facility] Work Phone: NH interval, electrocardiogram 196 ms Invalid Interpretation Code [facility] Work Phone: Pulse (Heart Rate) 64 /min Invalid Interpretation Code [facility] Work Phone: QRS axis, electrocardiogram 5 deg Invalid Interpretation Code [facility] Work Phone: [phone] QRS Duration 120 ms [facility] Work Phone: QRS duration, electrocardiogram 120 ms Invalid Interpretation Code [facility] Work Phone: QT Interval new path ms [facility] Work Phone: QT interval, electrocardiogram new path ms Invalid Interpretation Code [facility] Work Phone: QTc Sheriff 403 ms [facility] Work Phone: [phone] T Isaban 44 deg [facility] Work Phone: [phone] T wave axis, electrocardiogram 44 deg Invalid Interpretation Code [facility] Work Phone: [phone] Urea nitrogen mass conc Sinus Rhythm Low voltage in precordial leads. -Incomplete right bundle branch block. ABNORMAL [facility] Work Phone: [phone] [facility] L[facility] Left [facility] Ejection fraction 65 % Invalid Interpretation Code [facility] Work Phone: [phone] Clinical Lists Update: 07-07-2016 Alanine aminotransferase (ALT) 27 U/L [facility] Work Phone: [phone] Alkaline phosphatase (ALP) 55 U/L Invalid Interpretation Code [facility] Work Phone: [phone] ALP enzyme act/vol (Bld) 55 U/L [facility] Work Phone: [phone] Aspartate aminotransferase (AST) 21 U/L [facility] Work Phone: [phone] Bilirubin (total) 0.30 mg/dL [facility] [employer] Work Phone: [phone] BUN/Creatinine Ratio 32.0 mg/mg [facility] ter [facility] Work Phone: [phone] Calcium 8.5 mg/dL [facility] Work Phone: [phone] Chloride 104 mmol/L [facility] Work Phone: [phone] CO2 27.0 mmol/L Invalid Interpretation Code [facility] Work Phone: [phone] CO2 ppres (BldV) 27.0 mmol/L [facility] Work Phone: [phone] Creatinine 0.62 mg/dL [facility] Work Phone: [phone] Glucose 102 mg/dL Invalid Interpretation Code [facility] Work Phone: [phone] Glucose mass conc 102 mg/dL [facility] Work Phone: [phone] Hematocrit (HCT) 39.9 % Invalid Interpretation Code [facility] Work Phone: [phone] Hematocrit Volume Fraction (Bld) 39.9 % [facility] Work Phone: [phone] Hemoglobin (HGB) 13.3 g/dL [facility] Work Phone: [phone] Platelets 220 10*3/mm3 Invalid Interpretation Code [facility] Work Phone: [phone] Platelets #/vol (Bld) 220 10*3/mm3 [employer] Work Phone: [phone] Potassium 4.0 mmol/L [facility] Work Phone: [phone] Protein 7.0 g/dL [facility] Work Phone: [phone] Sodium 137 mmol/L [facility] Work Phone: [phone] Thyroid stimulating hormone (TSH) 0.78 u[iU]/mL Invalid Interpretation Code [facility] Work Phone: [phone] Thyroxine (T4) free 0.89 ng/dL Invalid Interpretation Code [facility] Work Phone: [phone] Triiodothyronine (T3) free 2.5 pg/mL Invalid Interpretation Code [facility] Work Phone: [phone] Urea nitrogen 20 mg/dL [facility] Work Phone: [phone] WBC #/vol (Bld) 4.9 10*3/uL [facility] Work Phone: [phone] WBC (Leukocytes) 4.9 10*3/uL Invalid Interpretation Code [employer] Phone: [phone] Office Visiton 04-28-2016 Tobacco smoking status NHIS Never smoker [facility] Work Phone: [phone] Tobacco use [facility] Never smoker Invalid Interpretation Code [facility] Work Phone: [phone] Office Visiton 08-18-2014 Breast Mammogram screening Normal Left Invalid Interpretation Code [facility] Work Phone: [phone] Office Visiton 10-18-2007 Colonoscopy (procedure) Colonoscopy (procedure) Invalid Interpretation Code [facility] Work Phone: [phone] Protein mass conc Colonoscopy (procedure) [facility] Work Phone: [phone] Office Visiton 10-18-2006 General categories [interpretation] of Cervical or vaginal smear or scraping by Cyto stain Normal Invalid Interpretation Code [facility] Work Phone: Vital Signs Date Time Vital Sign Value Performing Clinician Facility 01-04-2024 15:00-0400 Body height 166.37 cm [facility] 01-04-2024 15:00-0400 Body weight 67.4 kg [facility] 08-31-2022 13:32-0500 Body height 165.[address] Jakub Dial Work Phone: [facility] Work Phone: 08-31-2022 13:32-0500 Body weight 71.[address] Jakub Dial Work Phone: [facility] Work Phone: 08-31-2022 10:00-0500 Body temperature 97.9 [degF] Dr. Jakub Dial Work Phone: [facility] Work Phone: 08-31-2022 10:00-0500 Diastolic blood pressure 58 mm[Hg] Dr. Jakub Dial Work Phone: [facility] Work Phone: 08-31-2022 10:00-0500 Heart rate 65 /min Dr. Jakub Dial Work Phone: [facility] Work Phone: 08-31-2022 10:00-0500 Respiratory rate 18 /min Dr. Jakub Dial Work Phone: [facility] Work Phone: 08-31-2022 10:00-0500 SaO2% (BldA) [Mass fraction] 96 % Dr. Jakub Dial Work Phone: [facility] Work Phone: 08-31-2022 10:00-0500 Systolic blood pressure 136 mm[Hg] Dr. Jakub Dial Work Phone: [facility] Work Phone: 08-31-2022 05:59-0500 Body mass index (BMI) [Ratio] 25.7 kg/m2 Dr. Jakub Dial Work Phone: [facility] Work Phone: 08-31-2022 00:23-0500 Inhaled oxygen concentration 25 % Dr. Jakub Dial Work Phone: [facility] Work Phone: 08-30-2022 22:00-0500 Diastolic blood pressure 65 mm[Hg] [facility] Work Phone: 08-30-2022 22:00-0500 Heart rate 60 /min [facility] Work Phone: 08-30-2022 22:00-0500 Respiratory rate 14 /min [facility] Work Phone: 08-30-2022 22:00-0500 SaO2% (BldA) [Mass fraction] 97 % [facility] Work Phone: 08-30-2022 22:00-0500 Systolic blood pressure 148 mm[Hg] [facility] Work Phone: 08-30-2022 21:18-0500 Body temperature 96.6 [degF] [facility] Work Phone: 08-30-2022 20:24-0500 Body mass index (BMI) [Ratio] 25.7 kg/m2 [facility] Work Phone: 08-30-2022 20:13-0500 Body height 165.1 cm [facility] Work Phone: 08-30-2022 20:13-0500 Body weight 70.3 kg [facility] Work Phone: 01-29-2022 12:44-0400 Body height 165.[address] Jakub Dial Work Phone: [facility] Work Phone: 01-29-2022 12:44-0400 Body mass index (BMI) [Ratio] 26.1 kg/m2 Dr. Jakub Dial Work Phone: [facility] Work Phone: 01-29-2022 12:44-0400 Body weight 71.[address] Jakub Dial Work Phone: [facility] Work Phone: 01-29-2022 12:44-0400 Diastolic blood pressure 72 mm[Hg] Dr. Jakub Dial Work Phone: [facility] Work Phone: 01-29-2022 12:44-0400 Heart rate 68 /min Dr. Jakub Dial Work Phone: [facility] Work Phone: 01-29-2022 12:44-0400 Respiratory rate 16 /min Dr. Jakub Dial Work Phone: [facility] Work Phone: 01-29-2022 12:44-0400 SaO2% (BldA) [Mass fraction] 95 % Dr. Jakub Dial Work Phone: [facility] Work Phone: 01-29-2022 12:44-0400 Systolic blood pressure 132 mm[Hg] Dr. Jakub Dial Work Phone: [facility] Work Phone: 10-31-2020 08:00-0500 BP Diastolic 55 mm[Hg] [facility] [place] 10-31-2020 08:00-0500 BP Systolic 134 mm[Hg] [facility] [place] 10-31-2020 08:00-0500 Pulse (Heart Rate) 78 /min [facility] 10-31-2020 05:15-0500 Body Temperature 98.91 [degF] [facility] 10-31-2020 05:15-0500 Pulse Oximetry 98 % [facility] [place] 10-30-2020 23:10-0500 Respiratory Rate 20 /min [facility] 10-30-2020 06:51-0500 BMI (Body Mass Index) 25.4 kg/m2 [facility] 10-30-2020 06:51-0500 Body weight 70.31 kg [facility] [place] 10-30-2020 06:51-0500 Height 166.4 cm [facility] [place] 04-06-2017 09:19-0400 BMI (Body Mass Index) 25.53 kg/m2 [facility] Work Phone: 04-06-2017 09:19-0400 BP Diastolic 60 mm[Hg] [facility] Work Phone: 04-06-2017 09:19-0400 BP Systolic 110 mm[Hg] [facility] Work Phone: 04-06-2017 09:19-0400 Height 166.37 cm [facility] Work Phone: 04-06-2017 09:19-0400 Pulse (Heart Rate) 68 /min [facility] Work Phone: 04-06-2017 09:19-0400 Respiratory Rate 20 /min [facility] Work Phone: 04-06-2017 09:19-0400 Weight 70.67 kg [facility] Work Phone: 09-30-2016 16:14-0500 Heart rate 64 /min [facility] Work Phone: 09-30-2016 15:50-0500 BSA (Body Surface Area) 1.78 m2 [facility] Work Phone: 04-28-2016 08:35-0400 Body Temperature 98.01 [degF] [facility] Work Phone: 04-28-2016 08:35-0400 Body Temperature 98 [degF] [facility] Work Phone: 04-28-2016 08:35-0400 Height 165.1 cm Zaida Dial [facility] Work Phone: 04-28-2016 [phone] Pulse Oximetry 95 % Zaida Dial [facility] Work Phone: 04-28-2016 [phone] Weight 69.73 kg Zaida Dial [facility] Work Phone: Encounters Encounter Date Encounter Type Care Provider Facility Start: 03-15-2024 ambulatory [facility] Facility:[facility] Start: 03-15-2024 End: 03-15-2024 [facility] Facility:[facility] Start: 03-02-2024 End: 03-03-2024 ambulatory Jakub Dial Facility:[facility] Start: 01-27-2024 liliane Dial Facility:[facility] Start: 01-04-2024 End: 01-16-2024 Discharged Recurring [facility] Work Phone: Start: 01-04-2024 End: 01-16-2024 ambulatory Jakub [facility] Work Phone: Start: 09-17-2023 End: 09-17-2023 ambulatory [facility] Work Phone: Start: 09-17-2023 End: 09-17-2023 Patient encounter procedure [facility] Work Phone: Start: 09-17-2023 End: 09-17-2023 ambulatory Jakub Dial Facility:[facility] Start: 05-04-2023 End: 05-04-2023 ambulatory Jakub Dial Facility:[facility] Start: 04-23-2023 ambulatory Rosalia Gibson NP Facili ty:[facility] Start: 08-31-2022 Non-patient / Non-visit Dr. Jose Dial Work Phone: [facility] Start: 08-30-2022 End: 08-31-2022 Evaluation and management of inpatient [facility] Start: 08-30-2022 End: 11-14-[address] Jakub Dial Work Phone: [facility] Work Phone: Start: 05-12-2022 End: 05-12-2022 Patient encounter procedure [facility], [place] Start: 01-29-2022 End: 01-29-[address] Jakub Dial Work Phone: [facility] Start: 11-27-2020 End: 11-27-2020 Subsequent hospital visit by physician John Turner Work Phone: [facility] [address] Comment on above: Severe aortic stenos is; Right bundle branch block; First degree AV block Start: 11-27-2020 End: 11-27-2020 Evaluation and management of inpatient John Turner Work Phone: [facility] [address] Comment on above: Aortic valve stenosi s, etiology of cardiac valve disease unspecified Start: 10-30-2020 End: 10-31-2020 Evaluation and management of inpatient Goldy Latif Work Phone: [facility] Comment on above: Arrived Start: 10-15-2020 End: 10-15-2020 Subsequent hospital visit by physician Goldy Latif Work Phone: [facility] [address] Comment on above: Nonrheumatic aortic valve stenosis; SOB (shortness of breath); Aortic valve stenosis, etiology of cardiac valve disease unspecified Procedures Date Procedure Procedure Detail Performing Clinician Start: 08-31-2022 MRI of brain without contrast Dr. Jakub Dial Work Phone: Start: 08-30-2022 Plain chest X-ray Start: 08-30-2022 CT angiography of he ad and neck Start: 08-30-2022 CT of head without contrast Start: 05-12-2022 X-ray of both feet Start: 11-27-2020 Basic metabolic pane l calcium total John Turner Work Phone: Start: 11-27-2020 Blood count complete automated John Turner Work Phone: Start: 11-27-2020 Echo tthrc r-t 2d w/wom-mode compl spec&colr d John Turner Work Phone: Start: 10-31-2020 Echo tthrc r-t 2d w/wom-mode compl spec&colr d Bonnie Latif Work Phone: Start: 10-31-2020 Ecg routine ecg w/le ast 12 lds w/i&r Bonnie Latif Work Phone: Start: 10-31-2020 Basic metabolic pane l calcium total Bonnie Latif Work Phone: Start: 10-31-2020 Blood count complete automated Bonnie Latif Work Phone: Start: 10-30-2020 Echo tthrc r-t 2d w/wom-mode compl spec&colr d Goldy Latif Work Phone: Start: 10-30-2020 Ecg routine ecg w/le ast 12 lds w/i&r Bonnie Latif Work Phone: Start: 10-30-2020 Gluc bld gluc mntr d ev cleared fda spec home use Goldy Latif Work Phone: Start: 10-30-2020 Basic metabolic pane l calcium total Bonnie Latif Work Phone: Start: 10-30-2020 Blood count complete automated Bonnie Latif Work Phone: Start: 10-15-2020 Blood typing serolog ic abo Bonnie Latif Work Phone: Start: 10-15-2020 Natriuretic peptide Eileen Latif Work Phone: Start: 10-15-2020 PROTIME/INR & PTT Anamaria Latif Work Phone: Start: 10-15-2020 Ct angiography chest w/contrast/noncontrast John Turner Work Phone: Start: 10-15-2020 Radiologic exam ches t 2 views Bonnie Latif Work Phone: Start: 09-30-2016 End: 09-30-2016 OLIVA Diallo MD Start: 09-30-2016 End: 09-30-2016 Follow Up Appt 6 months Benita Edwards History of mastectomy History of mastecto my Dr. Jakub Dial Work Phone: Plan of Treatment Date Care Activity Detail Author Start: 08-31-2022 Patient discharge [facility] Work Phone: Start: 08-30-2022 Aspiration precautions [facility] Work Phone: Start: 08-30-2022 Assessment of risk o f venous thromboembolism [facility] Work Phone: Start: 08-30-2022 Cardiac monitoring [facility] Work Phone: Start: 08-30-2022 Catheterization of vein [facility] Work Phone: Start: 08-30-2022 Continuous positive airway pressure ventilation treatment [facility] Work Phone: Start: 08-30-2022 Continuous pulse oximetry [facility] Work Phone: Start: 08-30-2022 Elevation of head of bed [facility] Work Phone: Start: 08-30-2022 Exercises [facility] Work Phone: Start: 08-30-2022 Fall prevention [facility] Work Phone: Start: 08-30-[address] anned interventions [facility] Work Phone: Start: 08-30-2022 Insertion of cathete r into peripheral vein [facility] Work Phone: Start: 08-30-2022 Introduction of urin andria catheter [facility] Work Phone: Start: 08-30-2022 Measuring intake and output [facility] Work Phone: Start: 08-30-2022 Notification of physician [facility] Work Phone: Start: 08-30-2022 Oxygen therapy [facility] Work Phone: Start: 08-30-2022 Patient referral to dietitian [facility] Work Phone: Start: 08-30-2022 Providing care accor ding to standard [facility] Work Phone: Start: 08-30-2022 Provision of activit y privileges [facility] Work Phone: Start: 08-30-2022 Referral to occupati onal therapist [facility] Work Phone: Start: 08-30-2022 Referral to service [facility] Work Phone: Start: 08-30-2022 Speech therapy assessment [facility] Work Phone: Start: 08-30-2022 Tobacco use cessatio n education [facility] Work Phone: Start: 08-30-2022 [facility] Work Phone: Start: 08-30-2022 Verification routine [facility] Work Phone: Start: 08-30-2022 Admission procedure [facility] Work Phone: Start: 08-30-2022 Oxygen therapy [facility] Work Phone: Start: 08-30-2022 [facility] Work Phone: Start: 11-27-2020 End: 11-27-2020 Office Visit 11/27/2020 Office Visit Cardiology John Turner [employer] - [employer]EC[employer]IVE [address] [place] [address] [phone] [facility] Start: 11-06-2020 End: 11-06-2020 Office Visit 11/06/2020 Office Visit Cardiology John Turner [employer] - [employer] [address] [place] [address] [phone] [facility] Start: 10-30-2020 End: 10-30-2020 Appointment 10/30/2020 Appointment General Surgery Goldy Latif MD [address] [place] [id number] Kaushal Connell MD [address] [place] [address] [phone] [facility] Start: 09-25-2020 Annual Wellness Visi t (AWV) Annual Wellness Visit (AWV) [place] Start: 06-18-2020 Influenza vaccination Flu vaccine (# 1) [place] Start: 04-05-2018 End: 04-05-2018 Appointment Appointment [facility] Work Phone: Start: 04-27-2017 End: 04-27-2017 Appointment Appointment [facility] Work Phone: Start: 04-27-2017 End: 04-28-2016 *CBC with Differential *CBC with Differential [facility] Work Phone: Start: 04-27-2017 End: 04-28-2016 *CMP Complete Metabolic Panel *CMP Complete Metabolic Panel [facility] Work Phone: Start: 04-27-2017 End: 04-28-2016 Lactate dehydrogenase (LDH) *LDH -LDH (Lactate Dehydrogenase) [facility] Work Phone: Start: 04-27-2017 End: 04-28-2016 Urate *Uric Acid Blood [facility] Work Phone: Start: 04-06-2017 End: 04-06-2017 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 [facility] Work Phone: Start: 04-06-2017 End: 04-06-2017 Follow Up Appt 1 year Follow Up Appt 1 year [facility] Work Phone: Start: 09-30-2016 End: 09-30-2016 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 [facility] Work Phone: Start: 09-30-2016 End: 09-30-2016 Follow Up Appt 6 months Follow Up Appt 6 months [facility] Work Phone: Start: 2015 Pneumococcal 65+ yea rs Vaccine (1 of 1 - PPSV23) Pneumococcal 65+ years Vaccine (1 of 1 - PPSV23) [place], [place] Start: 2005 Screening for osteoporosis DEX A (modify frequency per FRAX score) [place] Start: 01-20-2000 Screening for malign ant neoplasm of breast Breast cancer screen [place] Start: 01-20-2000 Screening for malign ant neoplasm of colon Colon cancer screen colonoscopy [place] Start: 01-20-2000 Shingles Vaccine (1 of 2) Gupta gles Vaccine (1 of 2) [place] Start: 1990 Diabetes screen Diabetes screen [place], [place] Start: 1990 Lipid panel Lipid screen [place], [place] Start: 1969 DTaP/Tdap/Td vaccine (1 - Tdap) DTaP/Tdap/Td vaccine (1 - Tdap) [place] Start: 1966 COVID-19 Vaccine (1 of 2) COVI D-19 Vaccine (1 of 2) [facility] Work Phone: Start: 1950 Hepatitis C screening Hepatitis C sc reen [place], [place] Basic metabolic 2000 panel Basic Metabolic Panel Lab Routine Daily until discontinued starting 10/30/2020, 2 completed [place] Comment on above: Daily until disconti nued starting 10/30/2020, 2 completed CBC CBC Lab Routine Daily until discontinued starting 10/30/2020, 2 completed [place] Comment on above: Daily until disconti nued starting 10/30/2020, 2 completed Continuous pulse oximetry Pulse oximetry, continuous Respiratory Care Routine Every 4hr until discontinued starting 10/30/2020 [place] Comment on above: Every 4hr until disc ontinued starting 10/30/2020 EKG 12 lead [place], [place] Comment on above: Daily until disconti nued starting 10/30/2020, 2 completed Oxygen therapy [[facility] Data Set] Initiate Oxygen Therapy Protocol Respiratory Care Routine Daily until discontinued starting 10/30/2020 [place] Comment on above: Daily until disconti nued starting 10/30/2020 Patient referral [facility] Work Phone: End: 10-15-2020 PREPARE RBC (CROSSMATCH), 2 Units PREPARE RBC (CROSSMATCH), 2 Units Blood Bank Routine Nonrheumatic aortic valve stenosis 1 Occurrences starting 10/15/2020 until 10/15/2020 [place] Comment on above: 1 Occurrences starti ng 10/15/2020 until 10/15/2020 PREPARE RBC (CROSSMA [facility]), 2 Units PREPARE RBC (CROSSMATCH), 2 Units Blood Bank Routine Nonrheumatic aortic valve stenosis 10/15/2020 10:09 AM EST [place] Spirometry panel Incentive horacio metry Respiratory Care Routine Every 2hr while awake until discontinued starting 10/30/2020 [place] Comment on above: Every 2hr while awak e until discontinued starting 10/30/2020 Payers Date Payer Category Payer Unknown [id number] 2023 Self-pay [id number] 2015 Medicare [id number] Unknown [id number] Unknown [id number] 2.16.8 [id number] Unknown [id number] 2.16.8 [id number] Unknown [id number] 2.16.8 [id number] Unknown [id number] 2.16.8 [id number] Unknown [id number] 2.16.8 [id number] Unknown [id number] 2.16.8 [id number] Unknown [id number] 2.16.8 [id number] Unknown [id number] 2.16.8 [id number] Unknown [id number] 2.16.8 [id number] Social History Date Type Detail Facility Start: 10-08-2020 End: 10-30-2020 Tobacco smoking status NHIS Never smoker [place] Start: 10-08-2020 End: 10-30-2020 Tobacco use and exposure Never used [place] Start: 10-08-2020 End: 10-30-2020 Alcohol intake Lifetime non-drinker (finding) [place] Start: 09-30-2020 History SDOH Alcohol Frequency 1 [place] Sex Assigned At Not on file [place] Exposure to SARS-CoV -2 (event) Not sure [place] Start: 01-29-2022 End: 05-04-2023 Tobacco smoking status NHIS Unknown if ever smoked [facility] Start: 03-22-2020 Alone [facility] Start: 1950 Sex Assigned At Female [facility] Start: 08-31-2022 Non-smoker [facility] Goals Date Patient Goal Desired Activity /State Functional Status Date Assessment Result Facility 08-31-2022 Functional status Activity Ability Indepe ndent [facility] Work Phone: 08-31-2022 Functional status Patient Activi ty Ambulates;Up ad marcia [facility] Work Phone: Mental Status Date Assessment Result Facility 08-31-2022 Cognitive function Voice/Name [facility] Work Phone: 08-30-2022 Cognitive function Voice/Name [facility] Work Phone: Evaluation note 10-30-2020 Note Date & Type Note Facility 10-30-2020 Evaluation note Diagnosis Onset Date Shortness of breath acute History of transcatheter aortic valve replacement (TAVR) October 30, 2020 chronic [facility] Work Phone: Evaluation note Note Date & Type Note Facility Evaluation note Diagnosis Onset Date Brain TIA acute History of aortic valve replacement acute Hx of hyperlipidemia acute [facility] Work Phone: Evaluation note Note Date & Type Note Facility Evaluation note No assessment information availa ble [facility] Work Phone: Reason for Referral Status Reason Specialty Diagnoses / Procedures Referre d By Contact Referred To Contact Closed Radiology Diagnoses Aortic valve stenosis, etiology of cardiac valve disease unspecified Procedures CTA CHEST ABDOMEN PELVIS W CONTRAST John Turner [employer] - [employer] EXEC[employer]IVE [address] [facility] [address] [place] [address] Status Reason Specialty Diagnoses / Procedures Referre d By Contact Referred To Contact Closed Cardiology Diagnoses Aortic valve stenosis, etiology of cardiac valve disease unspecified Procedures ECHO Complete 2D W Doppler W Color John Turner [employer] - [employer] EXEC[employer]IVE [address] [facility] [address] [place] [address] Assessments Diagnosis Nonrheumatic aortic valve stenosis Aortic valve disorders SOB (shortness of breath) Shortness of breath Aortic valve stenosis, etiology of cardiac valve disease unspecified Diagnosis Aortic valve stenosis, etiology of cardiac valve disease unspecified Diagnosis Severe aortic stenosis Aortic valve disorders Right bundle branch block First degree AV block First degree atrioventricular block Diagnosis Severe aortic stenosis- Primary Aortic valve disorders CARLOS (obstructive sleep apnea) Obstructive sleep apnea (adult) (pediatric) Advance Directives No Advanced Directives Records FoundDocuments on File Type Date Recorded Patient Research Fellow Expl anation ACP-Advance Directive 10/30/2020 12:00 AM Latest Code Status on File Code Status Date Activated Date Inactivated Comments Full Code 10/30/2020 10:46 AM 10/31/2020 2:35 PM Full Code 10/30/2020 6:48 AM 10/30/2020 10:21 AM Documents on File Type Date Recorded Patient Research Fellow Expl anation ACP-Advance Directive 10/30/2020 12:00 AM Latest Code Status on File Code Status Date Activated Date Inactivated Comments Full Code 10/30/2020 10:46 AM 10/31/2020 2:35 PM Full Code 10/30/2020 6:48 AM 10/30/2020 10:21 AM Latest Code Status on File Code Status Date Activated Date Inactivated Comments Full Code 10/30/2020 10:46 AM Advance Directive Response Recorded Date/ Time Advance Directives Yes September 23, 2020 8:41am Living Will Yes November 12 10:02am Power of Leaflet Distributor Yes November 12, 2020 10:02am Advance Directive Response Recorded Date/ Time Advance Directives Yes September 23, 2020 7:41am Living Will No August 30 8:13pm Power of Leaflet Distributor No August 30, 2022 8:13pm Advance Directive Response Recorded Date/ Time Name of Medical Power of Leaflet Distributor Stacey August 30, 2022 10:52pm Advance Directives Yes September 23, 2020 7:41am Living Will Yes August 30 022 10:52pm Power of Leaflet Distributor Yes August 30, 2022 10:52pm Advance Directive Response Recorded Date/ Time Advance Directives Yes September 23, 2020 7:41am Living Will Yes August 30 10:52pm Power of Leaflet Distributor Yes August 30, 2022 10:52pm Advance Directive Response Recorded Date/ Time Advance Directives Yes September 23, 2020 8:41am Living Will Yes August 30 11:52pm Power of Leaflet Distributor Yes August 30, 2022 11:52pm Discharge Instructions * Instructions* Nanci Negro RN - 10/31/2020 - Please call [facility] with any questions: [phone] - Tumeric can cause an increased bleeding risk. It is recommended that you stop taking tumeric. If you do not want to stop taking tumeric, keep an eye out for any bleeding, new bruises or cuts. -You will have have the following follow up appointments in the [facility]: one week post procedure, one month post procedure with echocardiogram, one year post procedure with echocardiogram. -Wash groin/wrist incision with soap and water, pat dry. Apply bandage for 5 days. If you have a chest incision, you will receive specific instructions from your surgeon regarding care of the incision. -Check incision every day. If you see any changes in the way it looks, call the [facility] at . Look for any of these problems: redness and warmth that does not go away, yellow or green drainage from the wound, fever and chills, numbness in your legs, pain that is getting worse. -It is normal to have a bruise or soft lump in the groin. This will get smaller and go away with time -Do not drive until after your first [facility] Appointment. -Do not lift, push, or pull anything weighing more than 5 lbs or more for one week if you had the procedure through your groin and 4 weeks if you had the procedure through the chest -We strongly encourage a regular exercise program such as cardiac rehabilitation once you have beencleared to resume normal activity. -Eating well is important for your recovery. Eat nutritious foods every day. Please follow a cardiac, 2 gram sodium diet. Please continue to follow any other dietary recommendations provided by your health care provider prior to your valve surgery. -From now on, tell your doctors and health care providers about your heart valve implantation (prosthetic heart valve ). -If you go to the emergency room or are admitted to the hospital during the first year after your procedure, please call the [facility] at -If you have major dental work or other invasive medical procedures (like surgery) you may need to take antibiotics before the dental work or the procedure. Please discuss with your health care provider. - You will need to take blood thinning medications(antiplatelet) after your valve procedure. Generally, this includes aspirin and clopidogrel. The clopidogrel will be for 3 months and the aspirin will be indefinite. documented in this encounter History of Present Illness * Nanci Negro RN - 10/31/2020 12:28 PM EST Discharge information given to the patient. Patient aware of bleeding risks and medication interaction with her home turmeric. Patient aware of pharmacy change for her Plavix prescription. All questions were answered before discharge. Patient has changed and is being discharged home in a wheelchairwith valuables. documented in this encounter Summary Purpose Family History No Family History Records Found Relationship Condition Age at Onset Recorded Date/T brent mother Cardiac disease Unknown Relationship Condition Age at Onset Recorded Date/T brent mother Cardiac disease Unknown father Dementia Unknown Chief Complaint and Reason for Visit Chief Complaint 1 Y FU. PT RS 07/29 APPT. ONLY WANTS 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. E ORDER Reason for Visit Shortness of breath History of transcatheter aortic valve replacement (TAVR) Chief Complaint LABS AND XRAY TIA/CVA VS POSSIBLE COMPLEX MIGRAINE Reason for Visit Brain TIA History of aortic valve replacement Hx of hyperlipidemia Chief Complaint LABS AND XRAY TIA/CVA VS POSSIBLE COMPLEX MIGRAINE TIA/CVA VS POSSIBLE COMPLEX MIGRAINE Reason for Visit Brain TIA History of aortic valve replacement Hx of hyperlipidemia Chief Complaint LABILE BLOOD GLUCOSE Chief Complaint TYPE 2 DM Additional Source Comments Ordered Prescriptions (unrec ognized section and content) Prescription Sig Dispensed Refills Start Date End Da te clopidogrel (PLAVIX) 75 MG tablet Take 1 tablet by mouth daily 30 tablet 2 10/31/2020 aspirin 81 MG EC tablet Take 1 tablet by mouth daily 30 tablet 3 10/31/2020 clopidogrel (PLAVIX) 75 MG tablet Take 1 tablet by mouth daily 30 tablet 2 10/31/2020 10/31/2020 INFORMATION SOURCE (unrecogn ized section and content) DATE CREATED AUTHOR 10/31/2021 [employer] DATE CREATED AUTHOR AUTHOR'S ORGANIZ ATION 03/25/2024 [facility] Goals (unrecognized section and content) Goals may be documented in a n alternate sectionGoals may be documented in an alternate sectionGoals may be documented in an alternate sectionGoals may be documented in an alternate section Care Teams (unrecognized sec tion and content) Team Status: Active Member Role Status Dates Dr. Jakub Dial MD Family Provider Active Dr. Jakub Dial MD Primary Care Provider Active Team Status: Inactive Member Role Status Dates Dr. Jakub Dial MD Primary Care Provide r, Attending Provider, Referring Provider Active FOR RECORDS PERTAINING TO PATIENTS WHO ARE OR HAVE BEEN ENROLLED IN A CHEMICAL DEPENDENCY/SUBSTANCEABUSE PROGRAM, SOME INFORMATION MAY BE OMITTED. This clinical summary was aggregated from multiple sources. Caution should be exercised in using it in the provision of clinical care. This summary normalizes information from multiple sources, and as a consequence, information in this document may materially change the coding, format and clinical context of patient data. In addition, data may be omitted in some cases. CLINICAL DECISIONS SHOULD BE BASED ON THE PRIMARY CLINICAL RECORDS. [employer] provides no warranty or guarantee of the accuracy or completeness of information in this document.
[2025-07-13 09:34] VITALS: BP 154/73; PULSE 60; RESP 18; TEMP 37.1; O2SAT 99
== END | disposition home or self-care (01) ==
PROVIDERS: Emergency Provider Surgery; PCP Family Medicine; Visit Provider Surgery
DX: H53.8 Other visual disturbances (principal); Z94.7 Corneal transplant status
CPT/HCPCS: 99283